=== PATIENT | female | born 1955 | race Caucasian/White ===

== ENCOUNTER → 2017-06-04 | Outpatient (CLI) | payer OTHER ==
--- NOTE | 2017-06-04 13:37 | XR ---
EXAMINATION TYPE: XR foot complete LT DATE OF EXAM: 06/04/2017 COMPARISON: NONE HISTORY: 61 year-old female left foot pain particularly in the third digit. TECHNIQUE: 3 views FINDINGS: Bulky posterior and moderate sized plantar calcaneal spurs. Small delineation to the Achilles tendon. Mild degenerative change at the first MTP joint. There is a small lucency along the medial margin of the third middle phalangeal base seen only on the AP view. Otherwise, no acute fracture, subluxation , or dislocation is seen. IMPRESSION: Tiny lucency at the medial aspect of the third middle phalangeal base only seen on the AP view. If pi npoint tenderness here, findings could represent a small nondisplaced chip or avulsion fracture. Post erior and plantar calcaneal spurs. No other acute osseous abnormality seen.
== END | disposition home or self-care (01) ==
LOC: RADXRMAIN 13:13
PROVIDERS: ATTEND Family Medicine
DX: M77.32 Calcaneal spur, left foot (principal)

== ENCOUNTER → 2017-07-27 | Outpatient (CLI) | payer OTHER ==
--- NOTE | 2017-07-29 08:23 | MM ---
Reason for exam: clinical finding. Last mammogram was performed 2 years and 1 month ago. History: Patient is postmenopausal. Took estrogen for 8 years 2 months. Physical Findings: Nurse Summary: 0.5 x 2cm nodule in the right breast at 3 o'clock (nurse kp). MG Diagnostic Mammo w CAD RAY Bilateral CC and MLO view(s) were taken. Prior study comparison: July 04, 2015, bilateral MG screening mammo w CAD. November 19, 2011, bilateral digital screening mammo w/CAD. The breast tissue is heterogeneously dense. This may lower the sensitivity of mammography. No suspicious abnormality. No discrete mammographic finding to correspond to palpable mass. No significant new findings when compared with previous films. These results were verbally communicated with the patient and result sheet given to the patient on 07/27/17. ASSESSMENT: Probably benign, BI-RAD 3 RECOMMENDATION: Ultrasound of the right breast in 6 months.
--- NOTE | 2017-07-29 08:25 | USB ---
Reason for exam: clinical finding. History: Patient is postmenopausal. Took estrogen for 8 years 2 months. US Breast RT Right breast ultrasound includes all four quadrants, the retroareolar region and axilla. Finding demonstrates a 0.7 x 0.4 x 0.6cm oval, hyperechoic lesion, questionable lipoma at 3 o'clock. 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 These results were verbally communicated with the patient and result sheet given to the patient on 07/27/17. ASSESSMENT: Probably benign, BI-RAD 3 RECOMMENDATION: Ultrasound of the right breast in 6 months.
== END | disposition home or self-care (01) ==
LOC: RADMAMWWP 15:05
PROVIDERS: ATTEND Family Medicine
DX: N63 Unspecified lump in breast (principal)
CPT/HCPCS: 76641; G0204

== ENCOUNTER → 2017-08-24 | Outpatient (CLI) | payer OTHER ==
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
--- NOTE | 2017-08-24 11:08 | XR ---
EXAMINATION TYPE: XR ankle complete LT DATE OF EXAM: 08/24/2017 CLINICAL HISTORY: Fall injury with pain. TECHNIQUE: Frontal, lateral and oblique images of the left ankle are obtained. COMPARISON: None. FINDINGS: Osseous structures are demineralized which is noted to lower radiographic sensitivity. Ther e is no acute fracture/dislocation evident in the left ankle. There is mild spurring from the medial and lateral malleolus. The ankle mortise appears within normal limits. There is mild soft tissue swel ling over medial and lateral malleoli. Large superior and moderate to large size inferior calcaneal s purs are noted. IMPRESSION: There is no acute fracture or dislocation in the left ankle.
== END ==
LOC: RADXRMAIN 10:35
PROVIDERS: ATTEND Family Medicine
DX: S89.91XA Unspecified injury of right lower leg, initial encounter (principal); S99.912A Unspecified injury of left ankle, initial encounter

== ENCOUNTER 2017-09-23 16:08 | Inpatient (IN) | payer MEDICAID, OTHER ==
[2017-09-23] MEDS ORDERED: DIPH,PERTUS(ACELL)TETVAC-LF 0.5 ML VIAL IM ONE (16:42)
--- NOTE | 2017-09-23 16:44 | ED ---
General Adult HPI - General Chief complaint: Psychiatric Symptoms Stated complaint: Mental Health Time Seen by Provider: 09/23/17 16:25 Source: patient, RN notes reviewed Mode of arrival: ambulatory Limitations: no limitations - History of Present Illness Initial comments: Patient is a pleasant 62-year-old female presenting to the emergency department with depression. Patient states symptoms have been occurring for months. Patient does have a history of hospitalization once many years ago. Patient is depressed about life in general. Patient has thoughts of self-harm and did try to cut her right wrist with 3 different knives. Patient states none of the knives were sharp enough. Unclear last tetanus immunization. No homicidal thoughts. No hallucinations. No physical complaints. No alcohol or street drug use. - Related Data Home Medications Medication Instructions Recorded Confirmed Atorvastatin [Lipitor] 20 mg PO DAILY 09/23/17 09/24/17 Budesonide/Formoterol Fumarate 2 puff INHALATION RT-BID 09/23/17 09/24/17 [Symbicort 160-4.5 Mcg Inhaler] Butalb/APAP/Caff 50-325-40Mg 1 tab PO Q6H PRN 09/23/17 09/24/17 [Fioricet 50-325-40] Docusate [Colace] 100 mg PO BID PRN 09/23/17 09/24/17 Insulin Glargine [Lantus] 30 units SQ HS 09/23/17 09/24/17 Omeprazole 20 mg PO DAILY 09/23/17 09/24/17 Vilazodone HCl [Viibryd] 20 mg PO HS 09/23/17 09/23/17 cloNIDine HCL 0.3 mg PO DAILY@0000 PRN 09/23/17 09/23/17 cloNIDine HCL 0.3 mg PO HS@199909/23/17 09/23/17 lamoTRIgine [LaMICtal] 150 mg PO QAM 09/23/17 09/23/17 lamoTRIgine [LaMICtal] 200 mg PO HS 09/23/17 09/23/17 oxyCODONE HCL [Roxicodone] 10 mg PO TID PRN 09/23/17 09/24/17 DULoxetine HCL [Cymbalta] 60 mg PO BID 09/24/17 09/24/17 Pregabalin [Lyrica] 150 mg PO BID 09/24/17 09/24/17 QUEtiapine FUMARATE [SEROquel] 400 mg PO BID 09/24/17 09/24/17 Allergies Allergy/AdvReac Type Severity Reaction Status Date / Time ampicillin AdvReac Nausea & Verified 09/23/17 19:08 Vomiting & Diarrhea fluoxetine [From Prozac] AdvReac SUICIDAL Verified 09/23/17 19:08 morphine AdvReac Nausea & Verified 09/23/17 19:08 Vomiting Review of Systems ROS Statement: Those systems with pertinent positive or pertinent negative responses have been documented in the HPI. ROS Other: All systems not noted in ROS Statement are negative. Constitutional: Denies: fever Eyes: Denies: eye pain ENT: Denies: ear pain Respiratory: Denies: cough Cardiovascular: Denies: chest pain Endocrine: Denies: fatigue Gastrointestinal: Denies: abdominal pain Genitourinary: Denies: dysuria Musculoskeletal: Denies: back pain Skin: Denies: rash Neurological: Denies: weakness Psychiatric: Reports: as per HPI, depression, suicidal thoughts Past Medical History Past Medical History: Diabetes Mellitus History of Any Multi-Drug Resistant Organisms: None Reported Past Surgical History: Section, Cholecystectomy, Hysterectomy Additional Past Surgical History / Comment(s): Neck surgery, right knee surgery Past Psychological History: Anxiety, Depression Smoking Status: Current every day smoker Past Alcohol Use History: None Reported Past Drug Use History: None Reported General Exam Limitations: no limitations General appearance: alert, in no apparent distress Head exam: Present: atraumatic Eye exam: Present: normal appearance, PERRL ENT exam: Present: normal oropharynx Neck exam: Present: normal inspection Respiratory exam: Present: normal lung sounds bilaterally Cardiovascular Exam: Present: regular rate, normal rhythm GI/Abdominal exam: Present: soft. Absent: tenderness Extremities exam: Present: other (Right volar forearm abrasions) Neurological exam: Present: alert Psychiatric exam: Present: depressed Skin exam: Present: abrasion (5 horizontal right volar forearm abrasions.) Course Vital Signs 09/23/17 09/23/17 16:13 18:34 Temperature 98.8 F 98.8 F Pulse Rate 78 76 Respiratory 18 18 Rate Blood Pressure 107/55 109/56 O2 Sat by Pulse 96 98 Oximetry Medical Decision Making - Lab Data Result diagrams: 09/24/17 09:03 09/24/17 09:03 Lab Results 09/23/17 Range/Units 17:52 Urine Opiates Screen Not Detected (NotDetected) Ur Oxycodone Screen Detected H (NotDetected) Urine Methadone Screen Not Detected (NotDetected) Ur Propoxyphene Screen Not Detected (NotDetected) Ur Barbiturates Screen Detected H (NotDetected) U Tricyclic Antidepress Not Detected (NotDetected) Ur Phencyclidine Scrn Not Detected (NotDetected) Ur Amphetamines Screen Not Detected (NotDetected) U Methamphetamines Scrn Not Detected (NotDetected) U Benzodiazepines Scrn Not Detected (NotDetected) Urine Cocaine Screen Not Detected (NotDetected) U Marijuana (THC) Screen Not Detected (NotDetected) Disposition Clinical Impression: Depression Disposition: ADMITTED IP TO THIS HOSP
[2017-09-23] MEDS ORDERED: DOCUSATE 100 MG CAP PO PRN (19:04)
[2017-09-23] MEDS ORDERED: MAG HYDROX/AL HYDROX/SIMETH 30 ML CUP PO PRN (19:07)
[2017-09-23] MEDS ORDERED: MAGNESIUM HYDROXIDE 2,400 MG/10 ML CUP PO PRN (19:07)
[2017-09-23 20:12] LABS: Glucose,Whole Blood 56 mg/dL (75-99)
[2017-09-23 20:33] LABS: Glucose,Whole Blood 71 mg/dL (75-99)
[2017-09-23] MEDS: SYMBICORT 160-4.5 MCG INHALER INHALATION SCH (21:17)
[2017-09-23] MEDS: INSULIN GLARGINE 100 UNIT/ML 10 ML VIAL SQ SCH (21:20)
[2017-09-23] MEDS: cloNIDine HCL 0.1 MG TAB PO SCH (21:48)
[2017-09-23] MEDS: lamoTRIgine 100 MG TAB PO SCH (21:48)
[2017-09-24 05:54] LABS: Glucose,Whole Blood 107 mg/dL (75-99)
[2017-09-24] MEDS: lamoTRIgine 100 MG TAB PO SCH ×2 (08:30→21:26)
[2017-09-24] MEDS: PANTOPRAZOLE 40 MG TABLET PO SCH (08:30)
[2017-09-24] MEDS: ATORVASTATIN 20 MG TAB PO SCH (08:30)
[2017-09-24] MEDS: SYMBICORT 160-4.5 MCG INHALER INHALATION SCH ×2 (08:38→19:05)
[2017-09-24 09:35] LABS: Basophils % (A) 1 %; CH 28.5; CHCM 32.2; Eosinophils # (A) 0.1 k/uL (0-0.7); Eosinophils % (A) 2 %; HCT 43.6 % (34.0-46.0); HDW 2.41; HGB 13.7 gm/dL (11.4-16.0); Luc # (Auto) 0.05; Luc % (Auto) 1; Lymphocytes # (A) 1.6 k/uL (1.0-4.8); Lymphocytes % (A) 25 %; MCH 27.8 pg (25.0-35.0); MCHC 31.3 g/dL (31.0-37.0); MCV 88.8 fL (80.0-100.0); Mean Platelet Volume 7.4; Monocytes # (A) 0.2 k/uL (0-1.0); Monocytes % (A) 4 %; Neutrophils # (A) 4.4 k/uL (1.3-7.7); Neutrophils % (A) 68 %; RDW 14.5 % (11.5-15.5); WBC 6.4 k/uL (3.8-10.6); WBC (Perox) 6.76
[2017-09-24] MEDS: NICOTINE 21MG/24HR PATCH TRANSDERM SCH (09:51)
[2017-09-24 10:05] LABS: ALT 33 U/L (9-52); AST 22 U/L (14-36); Alkaline Phosphatase 81 U/L (38-126); Anion Gap 8 mmol/L; Blood Urea Nitrogen 11 mg/dL (7-17); Calcium 9.8 mg/dL (8.4-10.2); Carbon Dioxide 32 mmol/L (22-30); Chloride 101 mmol/L (98-107); Glucose 174 mg/dL (74-99); Non-African American GFR(MDRD) >60 (>60 ml/min/1.73 sqM); Potassium 4.5 mmol/L (3.5-5.1); Sodium 141 mmol/L (137-145); Total Bilirubin 0.4 mg/dL (0.2-1.3)
[2017-09-24 11:00] VITALS: BMI 25.7
[2017-09-24 12:14] LABS: Glucose,Whole Blood 130 mg/dL (75-99)
[2017-09-24] MEDS: PREGABALIN 75 MG CAP PO SCH ×2 (12:37→21:24)
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
[2017-09-24] MEDS: cloNIDine HCL 0.1 MG TAB PO SCH (21:24)
[2017-09-24] MEDS: INSULIN GLARGINE 100 UNIT/ML 10 ML VIAL SQ SCH (21:31)
[2017-09-25] MEDS: SYMBICORT 160-4.5 MCG INHALER INHALATION SCH ×2 (09:11→21:57)
[2017-09-25] MEDS: NICOTINE 21MG/24HR PATCH TRANSDERM SCH (09:19)
[2017-09-25] MEDS: ATORVASTATIN 20 MG TAB PO SCH (09:19)
[2017-09-25] MEDS: PANTOPRAZOLE 40 MG TABLET PO SCH (09:19)
[2017-09-25] MEDS: buPROPion XL 150 MG TAB.ER.24H PO SCH (09:19)
[2017-09-25] MEDS: PREGABALIN 75 MG CAP PO SCH ×2 (09:39→20:48)
[2017-09-25] MEDS: lamoTRIgine 100 MG TAB PO SCH ×2 (09:39→20:48)
--- NOTE | 2017-09-25 10:35 | CONS ---
CONSULTATION CHIEF COMPLAINT: A 62-year-old, white female, with severe depression in the psychiatric [facility] for medical management consult. HISTORY OF PRESENT ILLNESS: This is a 62-year-old, white female, history of diabetes, seizures, mood disorder, GERD, degenerative disc disease with radiculopathy, anxiety, depression, dyslipidemia, admitted to the psychiatric [facility] for severe depression. She states she has no friends, no family. She has no one to talk to and she is really depressed. Clinically, she has been taking her medications for her diabetes and hypertension and her mood pills for mood disorder and that has not changed as well as for her seizures and hypertension. She takes Viibryd 20 mg daily, clonidine 0.3 mg daily, Lamictal 200 at night, 150 mg in the morning, Lipitor 20 daily, Symbicort 160/4.5 two puffs b.i.d., Colace 100 mg b.i.d., omeprazole 20 mg daily, Fioricet 1 tab q.6 hours p.r.n., Cymbalta 60 mg b.i.d., Lantus 30 units daily. Lyrica 150 b.i.d., oxycodone 10 mg t.i.d., Seroquel 400 mg b.i.d. REVIEW OF SYSTEMS: 14-point review of systems negative, except for as mentioned in HPI. Vital signs show a temperature of 97 to 98, respiratory rate 60s to 70s, blood pressure 109 to 146/60s to 50s, O2 sat 98% on room air. She is thin, cachectic. PSYCH: Flat mood, poor affect. She cries when you talk to her. States she has no friends, no family. She is depressed, no one to talk to. She is not suicidal she stated. CARDIOVASCULAR: S1, S2. LUNGS: Transmitted upper airway sounds. HEMATOLOGIC: Negative Homans. GI: Soft. VASCULAR: Normal dorsalis pedis, posterior tibial and radial pulses. ASSESSMENT: 1. Insulin-dependent diabetes mellitus. 2. Obesity. 3. Hypertension. 4. Generalized debility. PLAN: Treat her depression, medically she is stable. Continue to watch her sugars, her blood pressure, her breathing. She has nicotine addiction as well as COPD but will continue with her. She appears to be stable from a medical standpoint. MMODL / IJN: [id number] /
[2017-09-25 17:41] LABS: Glucose,Whole Blood 136 mg/dL (75-99)
[2017-09-25] MEDS: guaiFENesin-DM 600/30MG 1 EACH TAB.ER.12H PO SCH (20:48)
[2017-09-25] MEDS: cloNIDine HCL 0.1 MG TAB PO SCH (20:49)
[2017-09-25] MEDS: INSULIN GLARGINE 100 UNIT/ML 10 ML VIAL SQ SCH (20:50)
[2017-09-26 02:35] LABS: Glucose,Whole Blood 160 mg/dL (75-99)
[2017-09-26] MEDS: NICOTINE 21MG/24HR PATCH TRANSDERM SCH (07:50)
[2017-09-26] MEDS: guaiFENesin-DM 600/30MG 1 EACH TAB.ER.12H PO SCH ×2 (07:50→21:28)
[2017-09-26] MEDS: buPROPion XL 150 MG TAB.ER.24H PO SCH (07:50)
[2017-09-26] MEDS: ATORVASTATIN 20 MG TAB PO SCH (07:50)
[2017-09-26] MEDS: PANTOPRAZOLE 40 MG TABLET PO SCH (07:50)
[2017-09-26] MEDS: PREGABALIN 75 MG CAP PO SCH ×2 (07:51→21:28)
[2017-09-26] MEDS: lamoTRIgine 100 MG TAB PO SCH ×2 (07:51→21:28)
[2017-09-26] MEDS: SYMBICORT 160-4.5 MCG INHALER INHALATION SCH ×2 (08:19→21:18)
[2017-09-26 13:18] LABS: Appearance,Urine Cloudy (Clear); Bacteria,Urine Occasional /hpf; Bilirubin,Urine Negative (Negative); Glucose,Urine (UA) Negative (Negative); Ketones,Urine Negative (Negative); Leukocyte Esterase,Urine Large (Negative); Mucus,Urine Rare /hpf; Nitrite,Urine Negative (Negative); Particle Count 19364; Protein,Urine Negative (Negative); RBC,Urine 3 /hpf (0-5); Specific Gravity,Urine 1.008 (1.001-1.035); Squamous Epithelial Cell,Urine 2 /hpf (0-4); UA Billing (MACRO vs. MICRO) MICRO; Urobilinogen,Urine <2.0 mg/dL (<2.0); WBC,Urine 4 /hpf (0-5)
[2017-09-26 17:57] LABS: Glucose,Whole Blood 121 mg/dL (75-99)
[2017-09-26 20:13] LABS: Glucose,Whole Blood 193 mg/dL (75-99)
[2017-09-26] MEDS: cloNIDine HCL 0.1 MG TAB PO SCH (21:29)
[2017-09-26] MEDS: INSULIN GLARGINE 100 UNIT/ML 10 ML VIAL SQ SCH (21:32)
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
--- NOTE | 2017-09-27 00:49 | P.PN ---
Progress Note - Text Progress Note Date: 09/26/17 62yo CF admitted on 09/23/17 due to suicidal ideations and self-inflicted wrist lacerations Last 24hrs: Patient states that she continues to have depressed mood and SI. Upon further discussion she states that at times her thoughts are more so of cutting herself and pulling out the vein so that she could see the blood and feel better. Feels that cutting is a relief for her as it transforms her emotional pain into physical pain. Discussed possible support systems outside of the hospital such as reaching out more to friends, joining a support group ( previously enjoyed participation in [facility]) and/or volunteer opportunities. Compliant with medications and reports no adverse effects. MSE: Pt is a 62yo CF who appears older than stated age, with deep bags and dark circles around her eyes. Dressed casually. Cooperative with evaluation. Speech is spontaneous with normal rate and volume. Her mood is depressed and affect is restricted. She continues to have SI. Denies HI and AVH. Her thought process is linear and logical. AAO x 3. Memory grossly intact. Insight and Judgment is limited. ASSESSMENT: 1. Major Depressive Disorder, recurrent, severe without psychotic features 2. R/O PTSD PLAN: Increase Wellbutrin XL to 300mg QD. Continue to monitor for safety. Encourage participation in group activities.
[2017-09-27 06:02] LABS: Glucose,Whole Blood 190 mg/dL (75-99)
[2017-09-27] MEDS: SYMBICORT 160-4.5 MCG INHALER INHALATION SCH ×2 (08:29→20:19)
[2017-09-27] MEDS: NICOTINE 21MG/24HR PATCH TRANSDERM SCH (08:37)
[2017-09-27] MEDS: PANTOPRAZOLE 40 MG TABLET PO SCH (08:37)
[2017-09-27] MEDS: ATORVASTATIN 20 MG TAB PO SCH (08:37)
[2017-09-27] MEDS: PREGABALIN 75 MG CAP PO SCH ×2 (08:38→21:07)
[2017-09-27] MEDS: lamoTRIgine 100 MG TAB PO SCH ×2 (08:38→21:07)
[2017-09-27] MEDS: guaiFENesin-DM 600/30MG 1 EACH TAB.ER.12H PO SCH (08:38)
[2017-09-27] MEDS: buPROPion XL 300 MG TAB.ER.24H PO SCH (08:38)
[2017-09-27] MEDS ORDERED: BACITRACIN OINT 1 EACH PACKET TOPICAL ONE (10:55)
[2017-09-27] MEDS: ARIPiprazole 2 MG TAB PO SCH (12:00)
[2017-09-27 13:01] LABS: Glucose,Whole Blood 125 mg/dL (75-99)
--- NOTE | 2017-09-27 17:24 | P.PN ---
Progress Note - Text Progress Note Date: 09/27/17 62yo CF admitted on 09/23/17 due to suicidal ideations and self-inflicted wrist lacerations Last 24hrs: Patient states that she continues to have depressed mood; however, does appear to have somewhat of a brighter affect as compared to initial presentation. She states that she is tired today because she did not sleep well last night. Reports that she is not experiencing intense SI on the unit because "do not have any stress" but fears that when she leaves the SI may return. Discussed her mood swings in more detail and patient stated that she has frequent mood swings that fluctuate throughout the day. Also, reported that she has a fear of abandonment, often feels empty/void, has had multiple krzysztof relationships with men, has issues with low self-esteem and cutting behaviors, does not trust others and often looks at perspectives in an all good or all bad fashion. Later on the unit, the staff informed me that pt reports that she cut her wrist with a barrette while on the unit. However, her wrists have been bandaged since admission. The object was taken from patient and she was not allowed to have forks or knives with her meal for lunch as an extra precaution. MSE: Pt is a 62yo CF who appears older than stated age, with deep bags and dark circles around her eyes. Dressed casually. Cooperative with evaluation. Speech is spontaneous with normal rate and volume. Her mood is depressed and affect is restricted. She continues to have SI. Denies HI and AVH. Her thought process is linear and logical. AAO x 3. Memory grossly intact. Insight and Judgment is limited. ASSESSMENT: 1. Major Depressive Disorder, recurrent, severe without psychotic features 2. Borderline Personality Disorder 3. R/O PTSD PLAN: Continue Wellbutrin XL 300mg QD. Start Abilify 2mg QD and Trazodone 50mg QHS. Continue to monitor for safety. Encourage participation in group activities. Discussed the importance of DBT upon discharge for further development of coping skills and insight.
[2017-09-27] MEDS: metFORMIN 500 MG TAB PO SCH (18:01)
[2017-09-27 20:21] LABS: Glucose,Whole Blood 161 mg/dL (75-99)
[2017-09-27] MEDS ORDERED: traZODone HCL 50 MG TAB PO SCH (21:00)
[2017-09-27] MEDS: cloNIDine HCL 0.1 MG TAB PO SCH (21:16)
[2017-09-27] MEDS: guaiFENesin-DM 100-10MG/5ML 10 ML CUP PO PRN (23:14)
[2017-09-27] MEDS: ARTIFICIAL TEARS-HYPROMELLOSE DROPS 15 ML BTL BOTH EYES PRN (23:19)
[2017-09-28] MEDS: ACETAMINOPHEN TAB 325 MG TAB PO PRN (03:07)
[2017-09-28 05:08] LABS: Glucose,Whole Blood 159 mg/dL (75-99)
[2017-09-28] MEDS: ARTIFICIAL TEARS-HYPROMELLOSE DROPS 15 ML BTL BOTH EYES PRN (06:32)
[2017-09-28] MEDS: SYMBICORT 160-4.5 MCG INHALER INHALATION SCH ×2 (08:18→20:42)
[2017-09-28] MEDS: NICOTINE 21MG/24HR PATCH TRANSDERM SCH (08:24)
[2017-09-28] MEDS: ARIPiprazole 2 MG TAB PO SCH (08:24)
[2017-09-28] MEDS: PREGABALIN 75 MG CAP PO SCH ×2 (08:24→20:02)
[2017-09-28] MEDS: buPROPion XL 300 MG TAB.ER.24H PO SCH (08:25)
[2017-09-28] MEDS: metFORMIN 500 MG TAB PO SCH ×2 (08:25→18:22)
[2017-09-28] MEDS: ATORVASTATIN 20 MG TAB PO SCH (08:25)
[2017-09-28] MEDS: PANTOPRAZOLE 40 MG TABLET PO SCH (08:25)
[2017-09-28] MEDS: lamoTRIgine 100 MG TAB PO SCH ×2 (08:25→20:02)
[2017-09-28] MEDS: guaiFENesin-DM 100-10MG/5ML 10 ML CUP PO PRN (12:04)
[2017-09-28 12:32] LABS: Glucose,Whole Blood 183 mg/dL (75-99)
--- NOTE | 2017-09-28 16:39 | P.PN ---
Progress Note - Text Progress Note Date: 09/28/17 62yo CF admitted on 09/23/17 due to suicidal ideations and self-inflicted wrist lacerations Last 24hrs: Patient states that she is no longer experiencing SI on the unit; however, she is "afraid when I go home it's gonna be the same thing". Her thoughts are extremely negative and has a poor outlook on her future. Discussed the importance of involving herself in various activities and reaching out to friends, but patient states why she cannot do any of the activities suggested. Has not been attending groups as she states that she doesn't like to be forced to come up with a goal or give answers that are expected. Also, feels that the groups are repetitive. She did not sleep well last night with only 3 hrs of sleep. MSE: Pt is a 62yo CF who appears older than stated age, with deep bags and dark circles around her eyes. Dressed casually. Cooperative with evaluation. Speech is spontaneous with normal rate and volume. Her mood is depressed and affect is restricted. Now denies SI. Denies HI and AVH. Her thought process is linear and logical. AAO x 3. Memory grossly intact. Insight and Judgment is limited. ASSESSMENT: 1. Major Depressive Disorder, recurrent, severe without psychotic features 2. Borderline Personality Disorder 3. R/O PTSD PLAN: Continue Wellbutrin XL 300mg QD. Increase Abilify to 5mg QD and Trazodone to 100mg QHS. Continue to monitor for safety. Encourage participation in group activities. Discussed the importance of DBT upon discharge for further development of coping skills and insight.
[2017-09-28 17:40] LABS: Glucose,Whole Blood 130 mg/dL (75-99)
[2017-09-28] MEDS: cloNIDine HCL 0.1 MG TAB PO SCH (20:02)
[2017-09-28 20:13] LABS: Glucose,Whole Blood 189 mg/dL (75-99)
[2017-09-28] MEDS ORDERED: traZODone HCL 100 MG TAB PO SCH (21:00)
[2017-09-29 06:15] LABS: Glucose,Whole Blood 151 mg/dL (75-99)
[2017-09-29] MEDS: PREGABALIN 75 MG CAP PO SCH ×2 (08:33→20:44)
[2017-09-29] MEDS: NICOTINE 21MG/24HR PATCH TRANSDERM SCH (08:33)
[2017-09-29] MEDS: ATORVASTATIN 20 MG TAB PO SCH (08:33)
[2017-09-29] MEDS: lamoTRIgine 100 MG TAB PO SCH ×2 (08:34→20:44)
[2017-09-29] MEDS: buPROPion XL 300 MG TAB.ER.24H PO SCH (08:34)
[2017-09-29] MEDS: PANTOPRAZOLE 40 MG TABLET PO SCH (08:34)
[2017-09-29] MEDS: metFORMIN 500 MG TAB PO SCH ×2 (08:35→17:42)
[2017-09-29] MEDS: ARIPiprazole 5 MG TAB PO SCH (08:35)
[2017-09-29] MEDS: SYMBICORT 160-4.5 MCG INHALER INHALATION SCH ×2 (08:39→21:37)
--- NOTE | 2017-09-29 13:23 | P.PN ---
Progress Note - Text Progress Note Date: 09/29/17 62yo CF admitted on 09/23/17 due to suicidal ideations and self-inflicted wrist lacerations Last 24hrs: Patient states that she is the "same as I was yesterday", but appears more jovial and socializing more on the unit today. She did sleep better last night with 4.5 hrs of sleep. Spends most of the conversation today making jokes and states that she often uses humor as a defense. No reported SI. [facility] has met with patient to discuss discharge plans and follow-up. She is still interested in participating in DBT. No acute changes overnight. Compliant with medications and no reported adverse effects. MSE: Pt is a 62yo CF in NAD. Dressed casually. Cooperative with evaluation. Speech is spontaneous with normal rate and volume. Her mood is "the same" and affect is appropriate and broad. Now denies SI. Denies HI and AVH. Her thought process is linear and logical. AAO x 3. Memory grossly intact. Insight and Judgment is limited. ASSESSMENT: 1. Major Depressive Disorder, recurrent, severe without psychotic features 2. Borderline Personality Disorder 3. R/O PTSD PLAN: Continue Wellbutrin XL 300mg QD and Abilify 5mg QD. Increase Trazodone to 200mg QHS. Continue to monitor for safety. Encourage participation in group activities. Plan to DC tomorrow.
[2017-09-29 17:18] LABS: Glucose,Whole Blood 131 mg/dL (75-99)
[2017-09-29 20:20] LABS: Glucose,Whole Blood 162 mg/dL (75-99)
[2017-09-29] MEDS: cloNIDine HCL 0.1 MG TAB PO SCH (20:44)
[2017-09-29] MEDS: ACETAMINOPHEN TAB 325 MG TAB PO PRN (20:46)
[2017-09-29] MEDS ORDERED: traZODone HCL 100 MG TAB PO SCH (21:00)
[2017-09-29 23:38] VITALS: RESP 16
[2017-09-30 06:44] LABS: Glucose,Whole Blood 148 mg/dL (75-99)
[2017-09-30 06:56] VITALS: BP 100/52; PULSE 80; TEMP 98.6
[2017-09-30] MEDS: metFORMIN 500 MG TAB PO SCH (07:56)
[2017-09-30] MEDS: PANTOPRAZOLE 40 MG TABLET PO SCH (07:57)
[2017-09-30] MEDS: ARIPiprazole 5 MG TAB PO SCH (07:57)
[2017-09-30] MEDS: NICOTINE 21MG/24HR PATCH TRANSDERM SCH (07:57)
[2017-09-30] MEDS: lamoTRIgine 100 MG TAB PO SCH (07:57)
[2017-09-30] MEDS: buPROPion XL 300 MG TAB.ER.24H PO SCH (07:57)
[2017-09-30] MEDS: PREGABALIN 75 MG CAP PO SCH (07:58)
[2017-09-30] MEDS: ATORVASTATIN 20 MG TAB PO SCH (08:01)
[2017-09-30] MEDS: SYMBICORT 160-4.5 MCG INHALER INHALATION SCH (09:49)
--- NOTE | 2017-09-30 09:56 | P.PN ---
Progress Note - Text Progress Note Date: 09/30/17 62yo CF admitted on 09/23/17 due to suicidal ideations and self-inflicted wrist lacerations Last 24hrs: Patient is doing well today and has a calm manner. She is laying in bed during rounds but easily awakened. States that she did sleep much better last night with the increase in Trazodone. No reported SI today. Looking forward to going home. Continues to be interested in DBT and also wanting to know more about trauma related groups in her area. Discussed the possibility of involvement in [facility]. No acute changes or disturbances overnight. Compliant with her medications and no reported adverse effects. Pt requesting a prescription for nicotine patches as she plans on continuing to abstain from smoking cigarettes after discharge. MSE: Pt is a 62yo CF in NAD. Dressed casually. Cooperative with evaluation. Speech is spontaneous with normal rate and volume. Her mood is euthymic and affect is appropriate and broad. No reported SI, HI or AVH. Her thought process is linear and logical. AAO x 3. Memory grossly intact. Insight and Judgment is limited. ASSESSMENT: 1. Major Depressive Disorder, recurrent, severe without psychotic features 2. Borderline Personality Disorder 3. R/O PTSD PLAN: Continue Wellbutrin XL 300mg QD, Abilify 5mg QD and Trazodone 200mg QHS. Discharge today.
[2017-09-30 12:43] LABS: Glucose,Whole Blood 192 mg/dL (75-99)
--- NOTE | 2017-10-24 22:59 | P.DS ---
Providers Date of admission: 09/23/17 18:20 Expected date of discharge: 09/30/17 Attending physician: Tej Rose, DO Consults: 09/23/17 19:07 Consult Physician Routine Consulting Provider: Charlie Esqueda Consult Reason/Comments: H and P Do you want consulting provider notified?: Yes Primary care physician: Charlie Esqueda - Discharge Diagnosis(es) (1) MDD (major depressive disorder), recurrent severe, without psychosis Status: Acute (2) Borderline personality disorder Status: Acute Hospital Course: Upon admission, patient reported continued SI and displayed a tearful affect. She was cooperative with interview but appeared guarded. Pt was started on Wellbutrin XL 150mg QD and continued on Lamictal as previously prescribed. Viibryd was not on formulary so it was not continued during hospitalization. We discussed possible options for SSRIs and pt reported that she had some manic symptoms on these medications in the past. Therefore, the decision was made to optimize Wellbutrin instead and dose was increased to 300mg daily. Abilify was also added for augmentation and improvement in depressed mood; ultimately titrated up to 5mg QD. Patient c/o sleep disturbance and was started on Trazodone as well. During further evaluation while on the unit, we discussed her mood swings in more detail and patient stated that she has frequent mood swings that fluctuate throughout the day. Also, reported that she has a fear of abandonment, often feels empty/void, has had multiple krzysztof relationships with men, has issues with low self-esteem and cutting behaviors, does not trust others and often looks at perspectives in an all good or all bad fashion. Given these symptoms, it was determined that patient not only had Major Depressive Disorder as determined by initial evaluation, but also deals with Borderline personality disorder as well. On hospital day 3 staff informed this provider that patient reported that she cut her wrist with a barrette while on the unit. However, her wrists had been bandaged since admission. The object was taken from patient and she was not allowed to have forks or knives with her meal for lunch as an extra precaution. When the incident was discussed with patient on the following day, she stated that she was telling them about what happened immediately on admission. This appeared to be more of attention seeking behavior than an actual suicide attempt. Over the course of hospitalization, patient's mood did appear to improve and she became more expressive on the unit. She opened up about past traumatic experiences during childhood and the importance of participating in DBT following discharge was emphasized. Her affect became more broad and bright throughout hospital stay as well. On discharge, patient denied SI, HI and AVH. She remained compliant with medications and reported no adverse effects. She was strongly encouraged to comply with outpatient treatment and medications in an effort to continue to improve her mood and develop more adaptive coping skills. Patient Condition at Discharge: Stable Plan - Discharge Summary Discharge Rx Participant: No New Discharge Prescriptions: New ARIPiprazole [Abilify] 5 mg PO DAILY #30 tab buPROPion XL [Wellbutrin XL] 300 mg PO DAILY #30 tab.er.24h Nicotine 21Mg/24Hr Patch [Habitrol] 1 patch TRANSDERM DAILY #30 patch traZODone HCL [Desyrel] 200 mg PO HS #60 tab Continue Insulin Glargine [Lantus] 30 units SQ HS cloNIDine HCL 0.3 mg PO HS@2000 Omeprazole 20 mg PO DAILY Atorvastatin [Lipitor] 20 mg PO DAILY Docusate [Colace] 100 mg PO BID PRN PRN Reason: Constipation Butalb/APAP/Caff 50-325-40Mg [Fioricet 50-325-40] 1 tab PO Q6H PRN PRN Reason: Migraine Headache Budesonide/Formoterol Fumarate [Symbicort 160-4.5 Mcg Inhaler] 2 puff INHALATION RT-BID cloNIDine HCL 0.3 mg PO DAILY@0000 PRN PRN Reason: IF PATIENT STILL AWAKE oxyCODONE HCL [Roxicodone] 10 mg PO TID PRN PRN Reason: Pain Pregabalin [Lyrica] 150 mg PO BID lamoTRIgine [LaMICtal] 200 mg PO HS #30 tablet lamoTRIgine [LaMICtal] 150 mg PO QAM #45 tablet Discontinued Vilazodone HCl [Viibryd] 20 mg PO HS QUEtiapine FUMARATE [SEROquel] 400 mg PO BID DULoxetine HCL [Cymbalta] 60 mg PO BID Discharge Medication List Atorvastatin [Lipitor] 20 mg PO DAILY 09/23/17 [History] Budesonide/Formoterol Fumarate [Symbicort 160-4.5 Mcg Inhaler] 2 puff INHALATION RT-BID 09/23/17 [History] Butalb/APAP/Caff 50-325-40Mg [Fioricet 50-325-40] 1 tab PO Q6H PRN 09/23/17 [ History] Docusate [Colace] 100 mg PO BID PRN 09/23/17 [History] Insulin Glargine [Lantus] 30 units SQ HS 09/23/17 [History] Omeprazole 20 mg PO DAILY 09/23/17 [History] cloNIDine HCL 0.3 mg PO DAILY@0000 PRN 09/23/17 [History] cloNIDine HCL 0.3 mg PO HS@2000 09/23/17 [History] oxyCODONE HCL [Roxicodone] 10 mg PO TID PRN 09/23/17 [History] Pregabalin [Lyrica] 150 mg PO BID 09/24/17 [History] ARIPiprazole [Abilify] 5 mg PO DAILY #30 tab 09/30/17 [Rx] Nicotine 21Mg/24Hr Patch [Habitrol] 1 patch TRANSDERM DAILY #30 patch 09/30/17 [ Rx] buPROPion XL [Wellbutrin XL] 300 mg PO DAILY #30 tab.er.24h 09/30/17 [Rx] lamoTRIgine [LaMICtal] 150 mg PO QAM #45 tablet 09/30/17 [Rx] lamoTRIgine [LaMICtal] 200 mg PO HS #30 tablet 09/30/17 [Rx] traZODone HCL [Desyrel] 200 mg PO HS #60 tab 09/30/17 [Rx] Follow up Appointment(s)/Referral(s): [facility] [Outside] - 10/01/17 1:00 pm (10-01-17 @ 1:00 with Shavon Hernadez 11-05-17 @ 2:00 with Angelica [facility] (none sooner as Angelica is booking into November) ) Charlie Esqueda MD [Primary Care Provider] - 1-2 days Patient Instructions/Handouts: Depression (GEN), Suicide Prevention for Adults (GEN) Activity/Diet/Wound Care/Special Instructions: Activity and diet as tolerated. Avoid the use of street drugs and alcohol. Take all medications as prescribed. When you are in need of refills on your medications please contact your medical provider and/or outpatient psychiatrist to have this done. Please go to scheduled outpatient appointment for aftercare treatment. If symptoms return or become worse call the crisis line at [phone] and/or go to the nearest emergency room for an evaluation. Discharge Disposition: HOME SELF-CARE
== END 2017-09-30 12:50 | disposition home or self-care (01) | DRG 751 ==
LOC: EC 16:08 → 3MHU 18:20
PROVIDERS: ADMIT Psychiatry & Neurology Psychiatry; ATTEND Psychiatry & Neurology Psychiatry
DX: F33.2 Major depressive disorder, recurrent severe without psychotic features (principal); R45.851 Suicidal ideations; E11.9 Type 2 diabetes mellitus without complications; F17.210 Nicotine dependence, cigarettes, uncomplicated; E78.5 Hyperlipidemia, unspecified; K21.9 Gastro-esophageal reflux disease without esophagitis; G89.29 Other chronic pain; G47.9 Sleep disorder, unspecified; R45.84 Anhedonia; F41.9 Anxiety disorder, unspecified; E66.9 Obesity, unspecified; S50.811A Abrasion of right forearm, initial encounter; S61.519A Laceration without foreign body of unspecified wrist, initial encounter; X78.9XXA Intentional self-harm by unspecified sharp object, initial encounter; R05 Cough; K59.00 Constipation, unspecified; F60.3 Borderline personality disorder; R53.81 Other malaise; J44.9 Chronic obstructive pulmonary disease, unspecified; Z90.710 Acquired absence of both cervix and uterus; Z88.1 Allergy status to other antibiotic agents; Z88.8 Allergy status to other drugs, medicaments and biological substances; Z79.899 Other long term (current) drug therapy; Z91.14 Patient's other noncompliance with medication regimen; Z81.8 Family history of other mental and behavioral disorders; Z79.51 Long term (current) use of inhaled steroids; Z79.4 Long term (current) use of insulin; Z90.49 Acquired absence of other specified parts of digestive tract
CPT/HCPCS: 80053; 80306; 81001; 82075; 83036; 84443; 85025; 87086; 90471; 90715; 94640; 99285

== ENCOUNTER → 2018-03-01 | Outpatient (CLI) | payer OTHER ==
--- NOTE | 2018-03-01 14:38 | MM ---
Reason for exam: follow-up at short interval from prior study. Last mammogram was performed 7 months ago. History: Patient is postmenopausal. Took estrogen for 8 years 2 months. Physical Findings: Nurse did not find any significant physical abnormalities on exam. MG Diagnostic Mammo w CAD RAY Bilateral CC and MLO view(s) were taken. Prior study comparison: July 27, 2017, bilateral MG diagnostic mammo w CAD RAY. July 04, 2015, bilateral MG screening mammo w CAD. The breast tissue is heterogeneously dense. This may lower the sensitivity of mammography. Finding: There are typically benign calcifications in both breasts. These results were verbally communicated with the patient and result sheet given to the patient on 03/01/18. ASSESSMENT: Benign, BI-RAD 2 RECOMMENDATION: Routine screening mammogram of both breasts in 1 year.
--- NOTE | 2018-03-01 14:51 | USB ---
Reason for exam: follow-up at short interval from prior study. History: Patient is postmenopausal. Took estrogen for 8 years 2 months. US Breast RT Right breast ultrasound includes all four quadrants, the retroareolar region and axilla. Finding demonstrates a 0.7 x 0.4 x 0.7cm oval, hyperechoic lesion at 3 o'clock, questionable lipoma. Most likely a lipoma with minimal increase in size (1mm) versus difference in technique. Precautionary 6 month follow up. These results were verbally communicated with the patient and result sheet given to the patient on 03/01/18. ASSESSMENT: Probably benign, BI-RAD 3 RECOMMENDATION: Ultrasound of the right breast in 6 months.
== END | disposition home or self-care (01) ==
LOC: RADMAMWWP 13:03
PROVIDERS: ATTEND Family Medicine
DX: R92.8 Other abnormal and inconclusive findings on diagnostic imaging of breast (principal)
CPT/HCPCS: 77066

== ENCOUNTER → 2018-05-20 | Outpatient (CLI) | payer OTHER ==
--- NOTE | 2018-05-20 16:28 | MR ---
EXAMINATION TYPE: MR cspine/lspine wo con DATE OF EXAM: 05/20/2018 COMPARISON: MRI cervical and lumbar spine March 21, 2015 HISTORY: Cervicalgia and low back pain per order. Headache with neck pain causing pain into left arm for over 10 years per patient. Low back pain for years into bilateral buttocks per patient. TECHNIQUE: Multiplanar, multisequence imaging of the cervical and lumbar spine are performed without IV contrast. FINDINGS: C-SPINE: FINDINGS: Sagittal images of the cervical spine show the craniocervical junction to remain within nor mal limits. The cervical and upper thoracic spinal cord remains normal in course, caliber, and signa l. There is persistent grade 1 retrolisthesis of C6 on C7. This is artifact from anterior fusion plat e C4-C6 levels along with artifact from central vertebral hardware and artifact from artificial disc material C3-C4 level. Disc space heights are satisfactory above and below surgical levels. The verteb ral body above and below surgical levels are normal. The bone marrow signal intensity is within norm al limits. There is mild to moderate multilevel anterior spurring in the visualized upper thoracic sp ine. Axial images at C2-C3 level shows right-sided uncovertebral facet degenerative changes causing asymme tric mild right-sided neural foraminal narrowing, left-sided neural foramen is patent. Finding new fr om prior. Axial images at C3-C4 level show persistent left paracentral/foraminal spur disc complex and uncovert ebral facet degenerative changes causing moderate to severe left-sided neural foraminal narrowing mor e prominent from prior. Right-sided neural foramen is patent. Effacement of anterolateral spinal abbie l is noted. Axial images at C4-C5 level show persistent right paracentral bony projection effacing anterior theca l sac axial image 30, there is mild bilateral neural foraminal narrowing due to marginal spurring. No significant change from prior. Axial images at C5-C6 level show persistent right paracentral/foraminal bony projection effacing ante rolateral thecal sac with marginal spurring causing mild to moderate left greater than right neural f oraminal narrowing. No significant change from prior. Axial images at C6-C7 level show spur disc complex effacing anterior thecal sac and artifact from jevon gical change. There is effacement of anterior thecal sac, there is moderate to advanced left and mild right-sided neural foraminal narrowing felt present. There is no significant change from prior study seen. Axial images at C7-T1 level show left-sided uncovertebral facet degenerative changes causing mild to moderate left-sided neural foraminal narrowing. Right-sided neural foramen is patent. Finding new or more prominent from prior. IMPRESSION: Postsurgical changes mid cervical spine redemonstrated. Stable spondylolisthesis C6 on C7 . Multilevel degenerative changes as detailed above with some progression from prior MRI noted. L-SPINE: Sagittal images of the lumbar spine show vertebral body heights and alignment to remain satisfactory. Multilevel disc desiccation is redemonstrated. There is persistent fairly moderate disc space narrow ing with posterior disc herniation L3-L4 level on sagittal images. Smaller posterior disc herniations are redemonstrated L4-L5 and L5-S1 levels on sagittal images. The conus medullaris remains normal i n position and signal ending mid L1 level. Mild multilevel anterior spurring is redemonstrated. The bone marrow signal intensity is within normal limits. Axial images the T12-L1 level to remain within normal limits. Axial images at L1-L2 level redemonstrate mild facet degenerative changes bilaterally. Spinal canal i s preserved and bilateral neural foramina are patent. Axial images at L2-L3 level redemonstrate mild broad disc bulge but spinal canal is preserved. Bilate ral neural foramina are patent. No significant change from prior. Axial images at L3-L4 level redemonstrate broad-based left lateral disc protrusion with some effaceme nt of the anterior thecal sac and asymmetric mild to moderate left-sided anterior inferior neural for aminal narrowing. Right-sided neural foramen is patent. No significant change from prior. Axial images at L4-L5 level redemonstrate moderate facet degenerative changes and ligamentum flavum h ypertrophy effacing posterior lateral thecal sac. There is mild broad-based posterior disc protrusion minimally effacing anterior thecal sac. There is mild right greater than left anterior inferior neur al foraminal narrowing. No significant change from prior. Axial images at L5-S1 level redemonstrate mild facet degenerative changes bilaterally. There is broad disc bulge with central disc protrusion component. Spinal canal is preserved. Bilateral neural douglas andrea are patent. Cannot exclude mucosal lesion in the proximal to mid sigmoid colon which is likely slightly redundant extending right of midline axial image 3, advise colonoscopy follow-up if has not been performed in last 3 years. IMPRESSION: Multilevel degenerative changes in lumbar spine as detailed above without significant pro gression from prior MRI. Attention to proximal to mid sigmoid colon as detailed above.
== END | disposition home or self-care (01) ==
LOC: RADMRIMAIN 14:53
PROVIDERS: ATTEND Nurse Practitioner Acute Care
DX: M47.816 Spondylosis without myelopathy or radiculopathy, lumbar region (principal); M43.12 Spondylolisthesis, cervical region; M47.812 Spondylosis without myelopathy or radiculopathy, cervical region; Z98.890 Other specified postprocedural states; Z88.1 Allergy status to other antibiotic agents
CPT/HCPCS: 72141; 72148

== ENCOUNTER → 2018-12-28 | Outpatient (CLI) | payer OTHER ==
--- NOTE | 2018-12-29 08:18 | XR ---
EXAMINATION TYPE: XR elbow complete RT DATE OF EXAM: 12/28/2018 COMPARISON: None HISTORY: Pain and swelling from fall TECHNIQUE: Three-view right elbow FINDINGS: Displaced fractures are not identified. There appear to be secondary ossification centers a djacent to the supracondylar regions. These could be old avulsions. Radial head aligns normally with the humerus. Anterior fat pad is normal. No elevation posterior fat pad is evident which is normal. S oft tissues appear within normal limits. Follow-up exam can be performed 7-10 days from acute trauma for continued pain. IMPRESSION: 1. Acute osseous abnormality is not identified. Consider follow-up as clinically indicated.
== END | disposition home or self-care (01) ==
LOC: RADXRMAIN 16:00
PROVIDERS: ATTEND Family Medicine
DX: M25.521 Pain in right elbow (principal)

== ENCOUNTER 2019-10-09 14:14 | Emergency (ER) | payer MEDICARE, OTHER ==
[2019-10-09 14:20] VITALS: RESP 18; TEMP 98.7
[2019-10-09] MEDS ORDERED: ACETAMINOPHEN TAB 325 MG TAB PO STA (14:27)
--- NOTE | 2019-10-09 14:44 | ED ---
General Adult HPI - General Chief complaint: Fall Stated complaint: Fall Time Seen by Provider: 10/09/19 14:16 Source: patient, EMS, RN notes reviewed Mode of arrival: EMS Limitations: no limitations - History of Present Illness Initial comments: 64-year-old female with a past medical history of diabetes mellitus, neuropathy, neck pain, neck surgery, falls presents to the emergency department for a chief of fall. Patient states she was in her basement because it was leaking. States she was setting up a fan when she tripped over the cord. Patient states she did fall backwards and hit her head. Patient also has some neck pain as well as right shoulder pain. Patient denies any back or abdominal pain. Denies any other extremity pain between sides her right shoulder. No loss of consciousness. No blood thinners. He does admit to a mild headache. Patient has no other complaints at this time including shortness of breath, chest pain, abdominal pain, nausea or vomiting, or visual changes. - Related Data Home Medications Medication Instructions Recorded Confirmed Atorvastatin [Lipitor] 20 mg PO DAILY 09/23/17 09/24/17 Budesonide/Formoterol Fumarate 2 puff INHALATION RT-BID 09/23/17 09/24/17 [Symbicort 160-4.5 Mcg Inhaler] Butalb/APAP/Caff 50-325-40Mg 1 tab PO Q6H PRN 09/23/17 09/24/17 [Fioricet 50-325-40] Docusate [Colace] 100 mg PO BID PRN 09/23/17 09/24/17 Insulin Glargine [Lantus] 30 units SQ HS 09/23/17 09/24/17 Omeprazole 20 mg PO DAILY 09/23/17 09/24/17 cloNIDine HCL 0.3 mg PO DAILY@0000 PRN 09/23/17 09/23/17 cloNIDine HCL 0.3 mg PO HS@2000 09/23/17 09/23/17 oxyCODONE HCL [Roxicodone] 10 mg PO TID PRN 09/23/17 09/24/17 Pregabalin [Lyrica] 150 mg PO BID 09/24/17 09/24/17 Previous Rx's Medication Instructions Recorded ARIPiprazole [Abilify] 5 mg PO DAILY #30 tab 09/30/17 Nicotine 21Mg/24Hr Patch [Habitrol] 1 patch TRANSDERM DAILY #30 patch 09/30/17 buPROPion XL [Wellbutrin XL] 300 mg PO DAILY #30 tab.er.24h 09/30/17 lamoTRIgine [LaMICtal] 150 mg PO QAM #45 tablet 09/30/17 lamoTRIgine [LaMICtal] 200 mg PO HS #30 tablet 09/30/17 traZODone HCL [Desyrel] 200 mg PO HS #60 tab 09/30/17 Allergies Allergy/AdvReac Type Severity Reaction Status Date / Time ampicillin AdvReac Nausea & Verified 10/09/19 14:20 Vomiting & Diarrhea fluoxetine [From Prozac] AdvReac SUICIDAL Verified 10/09/19 14:20 morphine AdvReac Nausea & Verified 10/09/19 14:20 Vomiting Review of Systems ROS Statement: Those systems with pertinent positive or pertinent negative responses have been documented in the HPI. ROS Other: All systems not noted in ROS Statement are negative. Past Medical History Past Medical History: Diabetes Mellitus Additional Past Medical History / Comment(s): ANX/DEPRESSION,NEUROPATHY, NECK PAIN, DIVERTICULAR DISEASE, CONSTIPATION -LAST BM 2-3 DAYS AGO, SHINGLES AGE 19, "IRREG HEART BEAT", FALLS- "BROKE LT FOOT WEARS A BRACE". History of Any Multi-Drug Resistant Organisms: None Reported Past Surgical History: Section, Cholecystectomy, Hysterectomy Additional Past Surgical History / Comment(s): Neck surgery, right knee surgery Past Anesthesia/Blood Transfusion Reactions: No Reported Reaction Additional Past Anesthesia/Blood Transfusion Reaction / Comment(s): past blood transfusion-no reaction. Past Psychological History: Anxiety, Depression Smoking Status: Current every day smoker Past Alcohol Use History: None Reported Past Drug Use History: None Reported General Exam Limitations: no limitations General appearance: alert, in no apparent distress Head exam: Present: atraumatic, normocephalic, normal inspection Eye exam: Present: normal appearance, PERRL, EOMI. Absent: scleral icterus, conjunctival injection, periorbital swelling ENT exam: Present: normal exam, normal oropharynx, mucous membranes moist, TM's normal bilaterally (Gated hemotympanums), normal external ear exam Neck exam: Present: other (Patient is in c-collar. Does have minimal right paraspinal tenderness) Respiratory exam: Present: normal lung sounds bilaterally. Absent: respiratory distress, wheezes, rales, rhonchi, stridor Cardiovascular Exam: Present: regular rate, normal rhythm, normal heart sounds, other (No contusions or ecchymosis noted of the chest wall). Absent: systolic murmur, diastolic murmur, rubs, gallop, clicks GI/Abdominal exam: Present: soft, normal bowel sounds, other (No contusions or ecchymosis noted of the chest wall.). Absent: distended, tenderness, guarding, rebound, rigid Extremities exam: Present: other (Patient has pain of the right shoulder. Patient actually does have full range of motion of the right shoulder. however she does have pain with full flexion and abduction. generalized tenderness to the right shoulder. No clavicular tenderness. Capillary refill less than 2 seconds, radial pulse 2+. ) Back exam: Absent: tenderness, CVA tenderness (R), CVA tenderness (L), vertebral tenderness (No thoracic or lumbar spine tenderness, no contusions or evidence of trauma.) Neurological exam: Present: alert, oriented X3 Course Vital Signs 10/09/19 10/09/19 14:15 15:08 Temperature 98.7 F Pulse Rate 86 75 Respiratory 18 18 Rate Blood Pressure 125/52 118/67 O2 Sat by Pulse 95 96 Oximetry Medical Decision Making - Medical Decision Making Patient presents for mechanical fall. Patient did hit the back of her head, no significant hematomas noted. GCS 15. No focal neurologic deficits. Patient is well-appearing, nontoxic. Patient also complaining of right shoulder pain however exam is really benign.CT brain shows age-related atrophic and chronic small vessel ischemia without acute intracranial process. CT cervical spine shows no evidence for fracture or subluxation of the cervical spine. There are stable changes of anterior cervical dissecting the infusion extending from C4 through C6. X-ray shows no acute fracture or dislocation in the right shoulder. Postsurgical change of the glenohumeral joint and AC joint is noted. Patient reevaluated, feeling well at this time. Patient can be discharged home to follow up with primary care. Discussed concussion precautions. Discussed returning if she has any other worsening symptoms. Disposition Clinical Impression: Head injury Disposition: HOME SELF-CARE Condition: Good Instructions (If sedation given, give patient instructions): Concussion (ED), Shoulder Pain (ED) Additional Instructions: Please take Tylenol for pain. Please follow-up with primary care in 1-2 days. Return to the emergency department if you have any worsening symptoms. Is patient prescribed a controlled substance at d/c from ED?: No Referrals: Charlie Esqueda MD [Primary Care Provider] - 1-2 days Time of Disposition: 15:32
--- NOTE | 2019-10-09 15:00 | CT ---
EXAMINATION TYPE: CT brain ivaine wo con DATE OF EXAM: 10/09/2019 COMPARISON: Previous CT cervical spine 10/27/2011 HISTORY: head and neck pain post fall CT DLP: 1302.[address] of the brain was performed. The ventricles, basal cisterns and sulci overlying the cerebral convexities demonstrate mild enlargem ent. There is no evidence for intracranial hemorrhage or sulcal effacement. There is decreased attenuatio n about the periventricular white matter and deep white matter of both cerebral hemispheres, compatib le with chronic small vessel ischemia. No mass effects are seen. If symptoms persist consider MRI. Osseous calvarium is intact. IMPRESSION: 1. Age related atrophic and chronic small vessel ischemic change without acute intracranial process seen at this time. CT Cervical Spine: Unenhanced CT of the cervical spine was performed with bone and soft tissue window settings submitted . Coronal and sagittal reconstruction is obtained. There is normal alignment and prevertebral soft tissues. No evidence for acute cervical fracture . St able changes of anterior cervical discectomy and fusion extending from C4 through C6. Degenerative di sc space narrowing and spondylosis noted at C2-3 and C3-4. IMPRESSION: 1. No evidence for acute fracture or subluxation of the cervical spine.
[2019-10-09 15:10] VITALS: BP 118/67; PULSE 75
--- NOTE | 2019-10-09 15:17 | XR ---
EXAMINATION TYPE: XR shoulder complete RT DATE OF EXAM: 10/09/2019 CLINICAL HISTORY: Right shoulder pain after fall TECHNIQUE: Three views of the right shoulder are obtained. COMPARISON: None. FINDINGS: There is mild diffuse osseous demineralization. There is no acute fracture/dislocation evid ent in the right shoulder. The acromioclavicular and glenohumeral joint spaces demonstrate postsurgi chaitanya change but maintain alignment. The visualized ribs are intact and unremarkable. Postsurgical angel nge of the cervical spine is also seen. IMPRESSION: There is no acute fracture or dislocation in the right shoulder. Postsurgical change of the glenohumeral joint and acromioclavicular joint.
== END 2019-10-09 15:53 | disposition home or self-care (01) ==
LOC: EC 14:14
DX: S09.90XA Unspecified injury of head, initial encounter (principal); M54.2 Cervicalgia; M25.511 Pain in right shoulder; E11.40 Type 2 diabetes mellitus with diabetic neuropathy, unspecified; F41.9 Anxiety disorder, unspecified; F32.9 Major depressive disorder, single episode, unspecified; F17.200 Nicotine dependence, unspecified, uncomplicated; Z79.4 Long term (current) use of insulin; Z79.899 Other long term (current) drug therapy; Z88.0 Allergy status to penicillin; Z88.5 Allergy status to narcotic agent; Z88.8 Allergy status to other drugs, medicaments and biological substances; W01.198A Fall on same level from slipping, tripping and stumbling with subsequent striking against other object, initial encounter
CPT/HCPCS: 70450; 72125; 99284

== ENCOUNTER → 2019-12-04 | Outpatient (CLI) | payer MEDICARE, OTHER ==
--- NOTE | 2019-12-04 15:27 | XR ---
EXAMINATION TYPE: XR foot complete LT DATE OF EXAM: 12/04/2019 CLINICAL HISTORY: Fourth digit of the left foot pain, swelling, and bruising after injury TECHNIQUE: Frontal, lateral, and oblique images of the left foot are obtained. COMPARISON: None FINDINGS: There is no acute fracture/dislocation evident in the left foot. The joint spaces in the left foot appear alignment with mild osseous liver change of the distal interphalangeal joints. Larg e Achilles and small plantar heel spurs are seen. The overlying soft tissue appears unremarkable. IMPRESSION: There is no acute fracture or dislocation in the left foot.
== END | disposition home or self-care (01) ==
LOC: RAD 14:58
PROVIDERS: ATTEND Family Medicine
DX: S90.32XA Contusion of left foot, initial encounter (principal)

== ENCOUNTER → 2020-01-04 | Outpatient (CLI) | payer MEDICARE, OTHER ==
--- NOTE | 2020-01-04 14:55 | XR ---
EXAMINATION TYPE: XR chest 2V DATE OF EXAM: 01/04/2020 COMPARISON: 03/21/2015 HISTORY: Cough TECHNIQUE: Frontal and lateral views of the chest are obtained. FINDINGS: Focal opacity of the left midlung is new from the prior 03/21/2015. Remainder the lungs are clear without pleural effusion or pneumothorax. Pulmonary hyperinflation is seen that may represent underlying COPD. There is diffuse osseous demineralization. Moderate degenerative change of the spine . Partial visualization of a cervical fusion device. Prior right rotator cuff surgery. IMPRESSION: Left midlung patchy opacity may represent atelectasis or pneumonia, new from the prior.
== END | disposition home or self-care (01) ==
LOC: RADXRMAIN 13:53
PROVIDERS: ATTEND Family Medicine
DX: R91.8 Other nonspecific abnormal finding of lung field (principal); R05 Cough
CPT/HCPCS: 71046

== ENCOUNTER 2020-03-23 19:44 | Inpatient (IN) | payer MEDICARE, MEDICAID ==
--- NOTE | 2020-03-23 20:17 | ED ---
General Adult HPI - General Chief complaint: Psychiatric Symptoms Stated complaint: Mental health Time Seen by Provider: 03/23/20 19:46 Source: patient, EMS, RN notes reviewed Mode of arrival: EMS Limitations: no limitations - History of Present Illness Initial comments: 64 year old female with a past medical history of diabetes mellitus, anxiety, depression presents to the emergency department for a chief complaint of suicidal thoughts. Patient states she "doubled up" on her night meds last night. Patient is unsure exactly what she took and how much. Patient states this was about 24 hours ago. She feels fine at this time however still feels s uicidal. States she has been more depressed for "quite some time." She is unable to quantify this.Patient has no other complaints at this time including shortness of breath, chest pain, abdominal pain, nausea or vomiting, headache, or visual changes. - Related Data Home Medications Medication Instructions Recorded Confirmed Pregabalin [Lyrica] 150 mg PO BID 09/24/17 03/23/20 DULoxetine HCL [Cymbalta] 60 mg PO BID 03/23/20 03/23/20 Insulin Glargine,Hum.rec.anlog See Protocol SQ DAILY 03/23/20 03/23/20 [Rosi Johnson] Omeprazole [PriLOSEC] 40 mg PO DAILY 03/23/20 03/23/20 busPIRone HCL 15 mg PO BID 03/23/20 03/23/20 oxyCODONE-APAP 7.5-325MG [Percocet 1 tab PO TID PRN 03/23/20 03/23/20 7.5-325 mg] Previous Rx's Medication Instructions Recorded lamoTRIgine [LaMICtal] 200 mg PO HS #30 tablet 09/30/17 traZODone HCL [Desyrel] 200 mg PO HS #60 tab 09/30/17 Allergies Allergy/AdvReac Type Severity Reaction Status Date / Time ampicillin AdvReac Nausea & Verified 03/23/20 20:58 Vomiting & Diarrhea fluoxetine [From Prozac] AdvReac SUICIDAL Verified 03/23/20 20:58 morphine AdvReac Nausea & Verified 03/23/20 20:58 Vomiting Review of Systems ROS Statement: Those systems with pertinent positive or pertinent negative responses have been documented in the HPI. ROS Other: All systems not noted in ROS Statement are negative. Past Medical History Past Medical History: Diabetes Mellitus Additional Past Medical History / Comment(s): ANX/DEPRESSION,NEUROPATHY, NECK PAIN, DIVERTICULAR DISEASE, CONSTIPATION -LAST BM 2-3 DAYS AGO, SHINGLES AGE 19, "IRREG HEART BEAT", FALLS- "BROKE LT FOOT WEARS A BRACE". History of Any Multi-Drug Resistant Organisms: None Reported Past Surgical History: Section, Cholecystectomy, Hysterectomy Additional Past Surgical History / Comment(s): Neck surgery, right knee surgery Past Anesthesia/Blood Transfusion Reactions: No Reported Reaction Additional Past Anesthesia/Blood Transfusion Reaction / Comment(s): past blood transfusion-no reaction. Past Psychological History: Anxiety, Depression Smoking Status: Current every day smoker Past Alcohol Use History: None Reported Past Drug Use History: None Reported General Exam Limitations: no limitations General appearance: alert, in no apparent distress Head exam: Present: atraumatic Eye exam: Present: normal appearance, PERRL, EOMI. Absent: scleral icterus, conjunctival injection, periorbital swelling ENT exam: Present: normal exam, mucous membranes moist Neck exam: Present: normal inspection, full ROM. Absent: tenderness, meningismus, lymphadenopathy Respiratory exam: Present: normal lung sounds bilaterally. Absent: respiratory distress, wheezes, rales, rhonchi, stridor Cardiovascular Exam: Present: regular rate, normal rhythm, normal heart sounds. Absent: systolic murmur, diastolic murmur, rubs, gallop, clicks GI/Abdominal exam: Present: soft, normal bowel sounds. Absent: distended, tenderness, guarding, rebound, rigid Extremities exam: Present: normal inspection, full ROM, normal capillary refill. Absent: tenderness, pedal edema, joint swelling, calf tenderness Neurological exam: Present: alert, oriented X3, other (gcs 15) Psychiatric exam: Present: suicidal ideation. Absent: homicidal ideation Course Vital Signs 03/23/20 19:46 Temperature 98.0 F Pulse Rate 70 Respiratory 18 Rate Blood Pressure 139/69 O2 Sat by Pulse 98 Oximetry Medical Decision Making - Medical Decision Making Patient was evaluated by EPS, recommend inpatient management. Patient signed herself in. - Lab Data Result diagrams: 03/23/20 20:10 03/23/20 20:10 Lab Results 03/23/20 03/23/20 Range/Units 20:10 20:10 WBC 6.7 (3.8-10.6) k/uL RBC 4.33 (3.80-5.40) m/uL Hgb 11.9 (11.4-16.0) gm/dL Hct 37.2 (34.0-46.0) % MCV 86.0 (80.0-100.0) fL MCH 27.4 (25.0-35.0) pg MCHC 31.9 (31.0-37.0) g/dL RDW 15.1 (11.5-15.5) % Plt Count 305 (150-450) k/uL Neutrophils % 64 % Lymphocytes % 28 % Monocytes % 5 % Eosinophils % 1 % Basophils % 1 % Neutrophils # 4.3 (1.3-7.7) k/uL Lymphocytes # 1.9 (1.0-4.8) k/uL Monocytes # 0.3 (0-1.0) k/uL Eosinophils # 0.1 (0-0.7) k/uL Basophils # 0.1 (0-0.2) k/uL Sodium 139 (137-145) mmol/L Potassium 4.0 (3.5-5.1) mmol/L Chloride 105 (98-107) mmol/L Carbon Dioxide 25 (22-30) mmol/L Anion Gap 9 mmol/L BUN 14 (7-17) mg/dL Creatinine 0.82 (0.52-1.04) mg/dL Est GFR (CKD-EPI)AfAm 86 (>60 ml/min/1.73 sqM) Est GFR (CKD-EPI)NonAf 75 (>60 ml/min/1.73 sqM) Glucose 133 H (74-99) mg/dL Calcium 9.2 (8.4-10.2) mg/dL Salicylates <1.0 mg/dL Acetaminophen <10.0 ug/mL Disposition Clinical Impression: Suicidal thoughts Disposition: ADMITTED IP TO THIS HOSP Condition: Fair Is patient prescribed a controlled substance at d/c from ED?: No Referrals: Charlie Esqueda MD [Primary Care Provider] - 1-2 days Time of Disposition: 22:50
[2020-03-23 20:37] LABS: Basophils # (A) 0.1 k/uL (0-0.2); Basophils % (A) 1 %; Eosinophils # (A) 0.1 k/uL (0-0.7); Eosinophils % (A) 1 %; HCT 37.2 % (34.0-46.0); HGB 11.9 gm/dL (11.4-16.0); Lymphocytes # (A) 1.9 k/uL (1.0-4.8); Lymphocytes % (A) 28 %; MCH 27.4 pg (25.0-35.0); MCHC 31.9 g/dL (31.0-37.0); Mean Platelet Volume 7.7; Monocytes # (A) 0.3 k/uL (0-1.0); Monocytes % (A) 5 %; Neutrophils # (A) 4.3 k/uL (1.3-7.7); Neutrophils % (A) 64 %; Platelet Count 305 k/uL (150-450); RBC 4.33 m/uL (3.80-5.40); RDW 15.1 % (11.5-15.5); WBC 6.7 k/uL (3.8-10.6)
[2020-03-23 20:58] LABS: Acetaminophen <10.0 ug/mL; African American GFR (CKD) 86 (>60 ml/min/1.73 sqM); Anion Gap 9 mmol/L; Blood Urea Nitrogen 14 mg/dL (7-17); Calcium 9.2 mg/dL (8.4-10.2); Carbon Dioxide 25 mmol/L (22-30); Chloride 105 mmol/L (98-107); Glucose 133 mg/dL (74-99); Non-African American GFR(CKD) 75 (>60 ml/min/1.73 sqM); Salicylate <1.0 mg/dL; Sodium 139 mmol/L (137-145)
[2020-03-23] MEDS ORDERED: MAGNESIUM HYDROXIDE 2,400 MG/10 ML CUP PO PRN (23:19)
[2020-03-23] MEDS ORDERED: MAG HYDROX/AL HYDROX/SIMETH 30 ML CUP PO PRN (23:19)
[2020-03-24 07:19] LABS: Total Protein 6.7 g/dL (6.3-8.2)
[2020-03-24 07:46] LABS: Bilirubin,Unconjugated 0.3 mg/dL (0.0-1.1)
[2020-03-24 07:49] LABS: Glucose,Whole Blood 84 mg/dL (75-99)
[2020-03-24 07:49] LABS: Total Bilirubin 0.2 mg/dL (0.2-1.3)
[2020-03-24] MEDS: INSULIN ASPART (NovoLOG) 100 UNIT/ML VIAL SQ SCH ×4 (08:13→20:22)
[2020-03-24] MEDS: NICOTINE 14MG/24HR PATCH TRANSDERM SCH ×2 (09:06→12:58)
[2020-03-24 11:52] LABS: Appearance,Urine Clear (Clear); Bacteria,Urine Rare /hpf; Bilirubin,Urine Negative (Negative); Blood,Urine Negative (Negative); Color,Urine Yellow; Glucose,Urine (UA) Negative (Negative); Hyaline Casts,Urine 1 /lpf (0-2); Ketones,Urine Negative (Negative); Leukocyte Esterase,Urine Trace (Negative); Mucus,Urine Few /hpf; Nitrite,Urine Negative (Negative); PH, Urine 5.5 (5.0-8.0); Protein,Urine Trace (Negative); RBC,Urine 4 /hpf (0-5); Specific Gravity,Urine 1.029 (1.001-1.035); Squamous Epithelial Cell,Urine 6 /hpf (0-4); WBC,Urine 2 /hpf (0-5)
[2020-03-24 11:57] LABS: Amphetamine Screen,Urine Not Detected (NotDetected); Barbiturate Screen,Urine Not Detected (NotDetected); Benzodiazepines Screen,Urine Not Detected (NotDetected); Cocaine Screen,Urine Not Detected (NotDetected); Methadone Screen, Urine Not Detected (NotDetected); Opiate Screen,Urine Not Detected (NotDetected); Oxycodone Screen, Urine Not Detected (NotDetected); Phencyclidine Screen,Urine Not Detected (NotDetected); Tricyclic Antidepressant,Urine Not Detected (NotDetected); Urn Cannabinoid Scrn Not Detected (NotDetected)
[2020-03-24 12:46] LABS: Glucose,Whole Blood 159 mg/dL (75-99)
[2020-03-24] MEDS: PREGABALIN 75 MG CAP PO SCH (12:54)
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
[2020-03-24] MEDS: oxyCODONE-APAP 7.5-325MG 1 EACH TAB PO PRN (16:40)
[2020-03-24 17:24] LABS: Glucose,Whole Blood 121 mg/dL (75-99)
[2020-03-24 20:21] LABS: Glucose,Whole Blood 149 mg/dL (75-99)
[2020-03-24] MEDS: busPIRone HCl 5 MG TAB PO SCH (20:25)
[2020-03-24] MEDS: DULoxetine HCL 60 MG CAPSULE.DR PO SCH (20:25)
[2020-03-24] MEDS: lamoTRIgine 100 MG TAB PO SCH (20:25)
[2020-03-24] MEDS: traZODone HCL 50 MG TAB PO SCH (20:25)
[2020-03-24] MEDS: ACETAMINOPHEN TAB 325 MG TAB PO PRN (20:25)
[2020-03-25] MEDS: ACETAMINOPHEN TAB 325 MG TAB PO PRN (00:28)
--- NOTE | 2020-03-25 01:42 | CONS ---
CONSULTATION The patient apparently came to the psychiatric [facility] for some kind of depression, worsening depression with suicidal ideations and recent change, possibly overdose with all of her prescribed medicines, doubled up on the dose because she did not care if she lived or any longer. Increasingly depressed over the last few weeks and experiencing migraines. She has had on and off depression ever since her daughter years ago. Denied any delusions or hallucinations. She was in here in 2017 on the psych [facility]. Medications are reviewed. Vital signs reviewed. Will restart home medications for diabetes mellitus, COPD, chronic pain, migraine, prior neck surgery, Dr. Frazier for pain management. He has her on Lyrica, Fioricet and Percocet. Denies drug use, marijuana or alcohol. PSYCH HISTORY: Mother, sister had depression. ASSESSMENT: 1. Depression. 2. Suicidal ideations. 3. Panic attack. 4. Posttraumatic stress disorder. 5. History of chronic obstructive pulmonary disease. 6. Nicotine addiction. 7. Diabetes mellitus. 8. Chronic pain syndrome. Continue home medicines. Treat psychologically. Please see further orders. MMODL / IJN: [id number] /
[2020-03-25 07:43] LABS: Glucose,Whole Blood 116 mg/dL (75-99)
[2020-03-25] MEDS: INSULIN ASPART (NovoLOG) 100 UNIT/ML VIAL SQ SCH ×4 (08:01→20:27)
[2020-03-25] MEDS: oxyCODONE-APAP 7.5-325MG 1 EACH TAB PO PRN (08:38)
[2020-03-25] MEDS: busPIRone HCl 5 MG TAB PO SCH ×2 (08:40→21:04)
[2020-03-25] MEDS: DULoxetine HCL 60 MG CAPSULE.DR PO SCH ×2 (08:40→21:04)
[2020-03-25] MEDS: PREGABALIN 75 MG CAP PO SCH (08:40)
[2020-03-25] MEDS: NICOTINE 14MG/24HR PATCH TRANSDERM SCH (08:40)
--- NOTE | 2020-03-25 11:02 | P.PN ---
Progress Note - Text Interval history: The patient indicates her mood is still depressed. She states she feels sad and lonely. She indicates that she slept very poorly last evening for unexplained reasons. Appetite is been stable. She did attend a few groups. She describes sadness over having little communication with her youngest daughter grief over the loss of her oldest daughter. She describes having complaints of chronic pain. She asked that we use Motrin in addition to her other analgesics. Mental status exam: The patient's a female appearing her stated age she is dressed in hospital gowns she's wearing her eyeglasses her hair is pulled back. Eye contact is appropriate. She appears sad she is tearful throughout the session. She endorses a depressed mood. She reports continued hopelessness thinking was suicidal ideation. She reports no homicidal ideation intent or plan. She states that she was home now she would just triple her medicines instead of doubling them. She endorses no auditory or visual hallucinations or any specific delusions. There is no observed evidence of psychosis. She demonstrates no tangential thinking loose associations or flight of ideas. Insight and judgment limited. Plan: I placed a call with [facility] to speak with the patient's outpatient psychiatrist Dr. Mullen I am awaiting a return call. I expect that we will make some changes to her antidepressant medication. It does appear that she does have some personality disorder traits that are involved in this presen tation. She is encouraged to participate in the milieu. We will monitor her for safety. She continues to require inpatient psychiatric hospitalization due to acute safety risk. Vital signs reviewed.
[2020-03-25] MEDS: IBUPROFEN 600 MG TAB PO PRN ×2 (11:05→22:17)
[2020-03-25 11:55] LABS: Hemoglobin A1C 7.4 % (4.0-6.0)
[2020-03-25 17:45] LABS: Glucose,Whole Blood 110 mg/dL (75-99)
[2020-03-25] MEDS: BACITRACIN 500 UNIT/GM OINT 28.4 GM TUBE TOPICAL SCH (21:04)
[2020-03-25] MEDS: lamoTRIgine 100 MG TAB PO SCH (21:04)
[2020-03-25] MEDS: traZODone HCL 50 MG TAB PO SCH (21:05)
[2020-03-25] MEDS: TRIAMCINOLONE ACET 0.1% OINTMENT 15 GM TUBE TOPICAL SCH (21:05)
[2020-03-26] MEDS: LORazepam 1 MG TAB PO PRN (01:15)
[2020-03-26] MEDS: IBUPROFEN 600 MG TAB PO PRN ×2 (06:09→15:42)
[2020-03-26 07:39] LABS: Glucose,Whole Blood 112 mg/dL (75-99)
[2020-03-26] MEDS: INSULIN ASPART (NovoLOG) 100 UNIT/ML VIAL SQ SCH ×4 (08:10→21:04)
--- NOTE | 2020-03-26 09:38 | P.PN ---
Progress Note - Text Interval history: The patient is found in the hallway she follows me to an interview room. She indicates that her mood is down. She continues to have hopeless thoughts. She states that sleep has been poor she feels restless. Appetite stable. She reports less attendance in terms of groups. I was able to speak with her outpatient psychiatrist to review past medication trials. Her psychiatrist states that they have tried several medications in the past. I reviewed options with the patient in terms of her psychotropic medication her questions were answered. We discussed using another serotonin norepinephrine reuptake inhibitor such as Pristiq. Mental status exam: The patient is alert she is dressed in [facility] she is wearing her eyeglasses. Speech is fluent spontaneous nonpressured. She describes a depressed mood with hopelessness thoughts. She reports no homicidal ideation but continues to have suicidal ideation. She is reporting no auditory or visual hallucinations or any specific delusions. She demonstrates no verbal or physical aggressiveness. She demonstrates no involuntary repetitive movements. Insight and judgment limited. She remains oriented to person place and date. Affect is dysphoric. Plan: The patient will continue on her current medication we will plan to unger sition her off of Cymbalta and tapered fashion and we will start her on Pristiq. We will continue her other psychotropic medications at this time. We will monitor for safety she is encouraged to participate in the milieu. Vital signs reviewed. She requires continued psychiatric hospitalization.
[2020-03-26] MEDS: busPIRone HCl 5 MG TAB PO SCH ×2 (09:39→21:03)
[2020-03-26] MEDS: BACITRACIN 500 UNIT/GM OINT 28.4 GM TUBE TOPICAL SCH ×2 (09:39→21:03)
[2020-03-26] MEDS: PREGABALIN 75 MG CAP PO SCH (09:39)
[2020-03-26] MEDS: NICOTINE 14MG/24HR PATCH TRANSDERM SCH (09:39)
[2020-03-26] MEDS: DULoxetine HCL 60 MG CAPSULE.DR PO SCH (09:40)
[2020-03-26] MEDS: TRIAMCINOLONE ACET 0.1% OINTMENT 15 GM TUBE TOPICAL SCH ×2 (09:40→21:03)
[2020-03-26] MEDS ORDERED: DULoxetine HCL 60 MG CAPSULE.DR PO STA (09:41)
[2020-03-26] MEDS: oxyCODONE-APAP 7.5-325MG 1 EACH TAB PO PRN (09:45)
[2020-03-26] MEDS ORDERED: PANTOPRAZOLE 40 MG TABLET PO ONE (11:31)
[2020-03-26] MEDS: PANTOPRAZOLE 40 MG TABLET PO SCH ×2 (11:32→17:17)
[2020-03-26] MEDS: lamoTRIgine 100 MG TAB PO SCH (21:04)
[2020-03-26] MEDS: traZODone HCL 50 MG TAB PO SCH (21:04)
[2020-03-27] MEDS: IBUPROFEN 600 MG TAB PO PRN (05:09)
[2020-03-27] MEDS: INSULIN ASPART (NovoLOG) 100 UNIT/ML VIAL SQ SCH ×4 (07:53→21:18)
[2020-03-27] MEDS: NICOTINE 14MG/24HR PATCH TRANSDERM SCH (08:11)
[2020-03-27] MEDS: PANTOPRAZOLE 40 MG TABLET PO SCH ×2 (08:11→17:21)
[2020-03-27] MEDS: BACITRACIN 500 UNIT/GM OINT 28.4 GM TUBE TOPICAL SCH ×2 (08:12→21:19)
[2020-03-27] MEDS: busPIRone HCl 5 MG TAB PO SCH ×2 (08:12→21:18)
[2020-03-27] MEDS: TRIAMCINOLONE ACET 0.1% OINTMENT 15 GM TUBE TOPICAL SCH ×2 (08:14→21:43)
[2020-03-27] MEDS: ACETAMINOPHEN TAB 325 MG TAB PO PRN (08:16)
[2020-03-27] MEDS ORDERED: DULoxetine HCL 60 MG CAPSULE.DR PO SCH (09:00)
[2020-03-27] MEDS: PREGABALIN 75 MG CAP PO SCH (10:02)
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
[2020-03-27 12:43] LABS: Glucose,Whole Blood 138 mg/dL (75-99)
[2020-03-27] MEDS: oxyCODONE-APAP 7.5-325MG 1 EACH TAB PO PRN ×2 (12:53→21:23)
[2020-03-27] MEDS: LORazepam 1 MG TAB PO PRN (17:21)
[2020-03-27] MEDS: traZODone HCL 50 MG TAB PO SCH (21:18)
[2020-03-27] MEDS: lamoTRIgine 100 MG TAB PO SCH (21:18)
[2020-03-28] MEDS: IBUPROFEN 600 MG TAB PO PRN ×3 (01:36→16:38)
[2020-03-28 07:57] LABS: Glucose,Whole Blood 127 mg/dL (75-99)
[2020-03-28] MEDS: INSULIN ASPART (NovoLOG) 100 UNIT/ML VIAL SQ SCH ×4 (08:33→20:33)
[2020-03-28] MEDS: DESVENLAFAXINE SUCCINATE 50 MG TAB.ER.24H PO SCH (09:05)
[2020-03-28] MEDS: PANTOPRAZOLE 40 MG TABLET PO SCH ×2 (09:05→16:39)
[2020-03-28] MEDS: NICOTINE 14MG/24HR PATCH TRANSDERM SCH (09:05)
[2020-03-28] MEDS: BACITRACIN 500 UNIT/GM OINT 28.4 GM TUBE TOPICAL SCH ×2 (09:05→20:31)
[2020-03-28] MEDS: busPIRone HCl 5 MG TAB PO SCH ×2 (09:05→20:32)
[2020-03-28] MEDS: DULoxetine HCL 30 MG CAPSULE.DR PO SCH (09:06)
[2020-03-28] MEDS: PREGABALIN 75 MG CAP PO SCH (09:07)
[2020-03-28] MEDS: TRIAMCINOLONE ACET 0.1% OINTMENT 15 GM TUBE TOPICAL SCH ×2 (09:07→20:31)
--- NOTE | 2020-03-28 10:16 | P.PN ---
Progress Note - Text Interval history: The patient is found in her room she follows me to an interview room. She indicates that she is having more back pain this morning she just took some medication and is waiting for it to work. She indicates that she is intermittently attending groups. sHe states her mood is "okay" however during the conversation she indicates that she continues to have suicidal thoughts. She has no questions or concerns regarding her psychotropic medication. No reports of any behavioral disturbance yesterday. Mental status exam: The patient is alert she seated in the chair calmly she states she is demonstrating a rocking behavior to help her back. She has intermittent eye contact. She endorses a mood is okay affect is dysphoric she reports continued suicidal thoughts. She reports no homicidal ideation intent or plan. She is reporting no auditory or visual hallucinations or specific delusions. She is sarcastic at times she is direct with speech. She can be defensive at times during the conversation. He demonstrates no verbal or physical aggressiveness she demonstrates no involuntary repetitive movements. Insight and judgment limited. Plan: The patient will continue on her current psychotropic medications. We will continue with the cross titration onto Pristiq and off of Cymbalta. We will monitor her for safety and encourage participation in the milieu. She requires continued psychiatric hospitalization. Vital signs reviewed.
[2020-03-28] MEDS: LORazepam 1 MG TAB PO PRN (16:37)
[2020-03-28] MEDS: traZODone HCL 50 MG TAB PO SCH (20:31)
[2020-03-28] MEDS: lamoTRIgine 100 MG TAB PO SCH (20:32)
[2020-03-29 07:57] LABS: Glucose,Whole Blood 151 mg/dL (75-99)
[2020-03-29] MEDS: INSULIN ASPART (NovoLOG) 100 UNIT/ML VIAL SQ SCH ×4 (08:20→20:55)
[2020-03-29] MEDS: PANTOPRAZOLE 40 MG TABLET PO SCH ×2 (08:21→18:00)
[2020-03-29] MEDS: DULoxetine HCL 30 MG CAPSULE.DR PO SCH (08:21)
[2020-03-29] MEDS: NICOTINE 14MG/24HR PATCH TRANSDERM SCH (08:21)
[2020-03-29] MEDS: DESVENLAFAXINE SUCCINATE 50 MG TAB.ER.24H PO SCH (08:21)
[2020-03-29] MEDS: busPIRone HCl 5 MG TAB PO SCH ×2 (08:21→20:59)
[2020-03-29] MEDS: BACITRACIN 500 UNIT/GM OINT 28.4 GM TUBE TOPICAL SCH ×2 (08:22→20:58)
[2020-03-29] MEDS: PREGABALIN 75 MG CAP PO SCH ×2 (08:22→21:00)
[2020-03-29] MEDS: TRIAMCINOLONE ACET 0.1% OINTMENT 15 GM TUBE TOPICAL SCH ×2 (08:22→20:59)
[2020-03-29] MEDS: oxyCODONE-APAP 7.5-325MG 1 EACH TAB PO PRN (08:48)
[2020-03-29 09:16] VITALS: BMI 27.2
--- NOTE | 2020-03-29 09:27 | P.PN ---
Progress Note - Text Interval history: The patient is found in the [facility] she follows me to an interview room. She reports that is mildly improved. She indicates that she continues to make an effort to attend groups. We reviewed her psychotropic medications. She states that she is doing well with the titration off of Cymbalta that she is experiencing some mild dizziness. We discussed that we would continue the 30 mg dose of Cymbalta through Wednesday. She has no questions or concerns regarding the Pristiq. Sleep and appetite are reported to be normal. She asked that her Lyrica be placed back at a twice daily dosing. Mental status exam: The patient is alert she is dressed in her own clothing hygiene grooming adequate. Eye contact is appropriate. Speech is fluent spontaneous nonpressured. She reports her mood is a little better today affect is brighter. She does report continued hopelessness thoughts. In terms of suicidal ideation she feels safe in the hospital. No reports of homicidal ideation intent or plan. She is endorsing no auditory or visual hallucinations or any specific delusions. She demonstrates no verbal or physical aggressiveness. Insight and judgment mildly improved. She is oriented to person place and date. Plan: The patient will continue on her current medications. After Wednesday I will likely discontinue the Cymbalta. We will assess her progress over the weekend. If she demonstrates continued improvement and appears to be clinically safe we will consider a discharge Wednesday or Wednesday. We will continue to monitor her for safety and encourage full participation in the milieu. Vital signs reviewed.
[2020-03-29] MEDS: LORazepam 1 MG TAB PO PRN (13:13)
[2020-03-29] MEDS: IBUPROFEN 600 MG TAB PO PRN (18:00)
[2020-03-29] MEDS: traZODone HCL 50 MG TAB PO SCH (20:59)
[2020-03-29] MEDS: lamoTRIgine 100 MG TAB PO SCH (21:00)
[2020-03-30 07:46] LABS: Glucose,Whole Blood 172 mg/dL (75-99)
[2020-03-30] MEDS: INSULIN ASPART (NovoLOG) 100 UNIT/ML VIAL SQ SCH ×4 (07:51→20:54)
[2020-03-30] MEDS: busPIRone HCl 5 MG TAB PO SCH ×2 (07:51→20:48)
[2020-03-30] MEDS: BACITRACIN 500 UNIT/GM OINT 28.4 GM TUBE TOPICAL SCH ×2 (07:52→20:46)
[2020-03-30] MEDS: DESVENLAFAXINE SUCCINATE 50 MG TAB.ER.24H PO SCH (07:52)
[2020-03-30] MEDS: TRIAMCINOLONE ACET 0.1% OINTMENT 15 GM TUBE TOPICAL SCH ×2 (07:52→20:46)
[2020-03-30] MEDS: PREGABALIN 75 MG CAP PO SCH ×2 (07:52→20:48)
[2020-03-30] MEDS: PANTOPRAZOLE 40 MG TABLET PO SCH ×2 (07:52→17:39)
[2020-03-30] MEDS: NICOTINE 14MG/24HR PATCH TRANSDERM SCH (07:52)
[2020-03-30] MEDS: DULoxetine HCL 30 MG CAPSULE.DR PO SCH (07:52)
--- NOTE | 2020-03-30 12:04 | P.PN ---
Progress Note - Text Progress Note Date: 03/30/20 Interval history: Patient is seen in cross coverage today. She reports she was in and out of sleep last night. She has not been attending any groups today. She does feel like she is feeling better than when she was admitted. She talks about discharge planning for early next week. She does not verbalize any adverse psychotropic medication side effects. Mental status exam: She is alert and cooperative with the interview. Her affect is restricted. Her mood she describes is doing okay. She does not verbalize any thoughts of harm to self or others. No evidence of active psychosis or agitation. She does not present with any rapid or pressured speech. Plan: Patient will be maintained on current psychotropic medication regimen. Continue to monitor for medication side effects and monitor her ongoing response to treatment.
[2020-03-30] MEDS: oxyCODONE-APAP 7.5-325MG 1 EACH TAB PO PRN (13:11)
[2020-03-30] MEDS: LORazepam 1 MG TAB PO PRN (18:10)
[2020-03-30] MEDS: traZODone HCL 50 MG TAB PO SCH (20:48)
[2020-03-30] MEDS: IBUPROFEN 600 MG TAB PO PRN (20:48)
[2020-03-30] MEDS: lamoTRIgine 100 MG TAB PO SCH (20:48)
[2020-03-31] MEDS: INSULIN ASPART (NovoLOG) 100 UNIT/ML VIAL SQ SCH ×5 (07:49→20:49)
[2020-03-31] MEDS: LORazepam 1 MG TAB PO PRN ×2 (08:27→21:35)
[2020-03-31] MEDS: IBUPROFEN 600 MG TAB PO PRN (08:29)
[2020-03-31] MEDS: BACITRACIN 500 UNIT/GM OINT 28.4 GM TUBE TOPICAL SCH ×2 (08:30→21:46)
[2020-03-31] MEDS: PREGABALIN 75 MG CAP PO SCH ×2 (08:30→21:29)
[2020-03-31] MEDS: NICOTINE 14MG/24HR PATCH TRANSDERM SCH (08:30)
[2020-03-31] MEDS: DESVENLAFAXINE SUCCINATE 50 MG TAB.ER.24H PO SCH (08:30)
[2020-03-31] MEDS: TRIAMCINOLONE ACET 0.1% OINTMENT 15 GM TUBE TOPICAL SCH ×2 (08:30→21:46)
[2020-03-31] MEDS: DULoxetine HCL 30 MG CAPSULE.DR PO SCH (08:30)
[2020-03-31] MEDS: PANTOPRAZOLE 40 MG TABLET PO SCH ×2 (08:30→17:55)
[2020-03-31] MEDS: busPIRone HCl 5 MG TAB PO SCH ×2 (09:07→21:28)
--- NOTE | 2020-03-31 13:17 | P.PN ---
Progress Note - Text Progress Note Date: 03/31/20 Interval history: Patient is seen in cross coverage again today. She seems to relay that she sleeping and eating okay. She does describe having some restless leg type symptoms. She is currently in the process of tapering off of Cymbalta and has started Pristiq. Mental status exam: She is alert and cooperative with the interview. Her speech is fluent, not rapid or pressured. Her thought processes are organized. Her mood is described as "I don't give a hoot." She relays that she is having thoughts of suicide, relays that she wants to go home and makes reference to hurting herself at home. She does report that she feels safe here in the hospital. We talked about her going to staff if she is struggling. No evidence of active psychosis and she is not displaying any agitation. Plan: We'll maintain current psychotropic medications and monitor for any medication side effects. Continue to monitor regarding any suicidal ideations and maintain SP 15 minute precautions. Continue to monitor for her ongoing response to treatment.
[2020-03-31 17:59] LABS: Glucose,Whole Blood 122 mg/dL (75-99)
[2020-03-31] MEDS: lamoTRIgine 100 MG TAB PO SCH (21:28)
[2020-03-31] MEDS: traZODone HCL 50 MG TAB PO SCH (21:34)
[2020-03-31] MEDS: oxyCODONE-APAP 7.5-325MG 1 EACH TAB PO PRN (21:36)
[2020-04-01 07:41] LABS: Glucose,Whole Blood 129 mg/dL (75-99)
[2020-04-01] MEDS: INSULIN ASPART (NovoLOG) 100 UNIT/ML VIAL SQ SCH ×4 (08:21→21:20)
[2020-04-01] MEDS: NICOTINE 14MG/24HR PATCH TRANSDERM SCH (08:21)
[2020-04-01] MEDS: BACITRACIN 500 UNIT/GM OINT 28.4 GM TUBE TOPICAL SCH ×2 (08:22→21:20)
[2020-04-01] MEDS: PANTOPRAZOLE 40 MG TABLET PO SCH ×2 (08:22→17:41)
[2020-04-01] MEDS: DESVENLAFAXINE SUCCINATE 50 MG TAB.ER.24H PO SCH (08:22)
[2020-04-01] MEDS: TRIAMCINOLONE ACET 0.1% OINTMENT 15 GM TUBE TOPICAL SCH ×2 (08:22→21:20)
[2020-04-01] MEDS: busPIRone HCl 5 MG TAB PO SCH (08:22)
[2020-04-01] MEDS: IBUPROFEN 600 MG TAB PO PRN ×2 (08:23→21:22)
[2020-04-01] MEDS: DULoxetine HCL 30 MG CAPSULE.DR PO SCH (08:23)
[2020-04-01] MEDS: PREGABALIN 75 MG CAP PO SCH ×2 (08:23→21:22)
[2020-04-01] MEDS: ARIPiprazole 2 MG TAB PO SCH (10:50)
--- NOTE | 2020-04-01 11:12 | P.PN ---
Progress Note - Text Interval history: The patient is found in group she follows me to an interview room. The progress notes from the weekend were reviewed. It appears that she's been reporting continued suicidal ideation while in group. She had reported to Dr. Morin just yesterday that she wanted to go home so she can act on her suicidal thoughts. Initially she states today she is doing okay when we discussed what she is telling other clinicians she states that she does still have suicidal thoughts. She becomes tearful. She reports that she didn't sleep well last night staff reported she slept 6 hours. Appetite is stable. We discussed some problem solving strategies. She continues to be fairly superficial in those discussions. She continues to use attempts at humor. We reviewed her psychotropic medications. We decided that we would augment the Pristiq with Abilify. She has no questions or concerns. Mental status exam: The patient is alert she is dressed in her own clothing which is the same. Hygiene grooming adequate. Eye contact is intermittent. Speech is fluent spontaneous at times. She demonstrates a tearful affect during the session. She reports hopelessness thinking with continued suicidal thoughts. She reports no homicidal ideation intent or plan. She is reporting no auditory or visual hallucinations or any specific delusions. There is no observed evidence of psychosis hypomania or jillian. She demonstrates no tangential thinking loose associations or flight of ideas. She remains oriented to person place and date. She frequently moves her legs shaking them throughout the session. Plan: The patient will continue on the Pristiq as written. The Cymbalta will be discontinued. We will discontinue BuSpar and add Abilify 2 mg daily. We discussed using the Abilify as an augmentation strategy for severe symptoms of depression. She had no questions or concerns regarding the medication. She is encouraged to continue participating in the milieu. We will monitor her for safety. She requires continued psychiatric hospitalization.
[2020-04-01 11:13] LABS: Glucose,Whole Blood 157 mg/dL (75-99)
[2020-04-01 12:40] LABS: Glucose,Whole Blood 128 mg/dL (75-99)
[2020-04-01] MEDS: oxyCODONE-APAP 7.5-325MG 1 EACH TAB PO PRN (18:57)
[2020-04-01] MEDS: traZODone HCL 50 MG TAB PO SCH (21:20)
[2020-04-01] MEDS: lamoTRIgine 100 MG TAB PO SCH (21:20)
[2020-04-01] MEDS: LORazepam 1 MG TAB PO PRN (21:23)
[2020-04-02 07:38] LABS: Glucose,Whole Blood 147 mg/dL (75-99)
[2020-04-02] MEDS: INSULIN ASPART (NovoLOG) 100 UNIT/ML VIAL SQ SCH ×4 (07:52→20:13)
[2020-04-02] MEDS: NICOTINE 14MG/24HR PATCH TRANSDERM SCH (07:54)
[2020-04-02] MEDS: PANTOPRAZOLE 40 MG TABLET PO SCH ×2 (07:54→17:34)
[2020-04-02] MEDS: PREGABALIN 75 MG CAP PO SCH ×2 (07:54→21:03)
[2020-04-02] MEDS: BACITRACIN 500 UNIT/GM OINT 28.4 GM TUBE TOPICAL SCH ×2 (07:56→20:14)
[2020-04-02] MEDS: DESVENLAFAXINE SUCCINATE 50 MG TAB.ER.24H PO SCH (08:00)
[2020-04-02] MEDS: TRIAMCINOLONE ACET 0.1% OINTMENT 15 GM TUBE TOPICAL SCH ×2 (08:01→21:06)
--- NOTE | 2020-04-02 11:11 | P.PN ---
Progress Note - Text Interval history: The patient is found in the [facility] she follows me to an interview room. She indicates her mood is better today. She reports that she felt uneasy with the Abilify and does not wish to continue the medication. She has no questions or concerns regarding the Pristiq. She indicates that she has been attending groups. She has questions regarding her psychiatric diagnosis and we reviewed that she does have a borderline personality disorder. We discussed the role that psychotherapy comply in addressing her borderline personality disorder. It was suggested that she participate in a DBT group as an outpatient. She reports that sleep is been impaired appetite is stable. Mental status exam: The patient is alert she is dressed in her own clothing hygiene grooming adequate. Eye contact is appropriate. Speech is fluent spontaneous nonpressured. She demonstrates no tangential thinking loose associations or flight of ideas. She endorses no auditory or visual hallucinations or any specific delusions. There is no overt evidence of psychosis. She demonstrates no verbal or physical aggressiveness. She remains oriented to person place and date. Today she states that she feels less hopeless and reports having no acute suicidal ideation intent or plan. She reports no homicidal ideation intent or plan. Affect was brighter. Plan: The patient will continue on her current psychotropic medication however the Abilify will be discontinued. We will not restart the BuSpar at this time. We discussed trying to make an effort to reduce the number of medications that she is taking. We discussed the importance of trying to participate in individual psychotherapy and hopefully DBT group upon discharge. We will continue to monitor her for safety. We will consider discharging her in the next 1-2 days. Vital signs reviewed.
[2020-04-02] MEDS: ARIPiprazole 2 MG TAB PO SCH (12:07)
[2020-04-02] MEDS: IBUPROFEN 600 MG TAB PO PRN (15:16)
[2020-04-02] MEDS: LORazepam 1 MG TAB PO PRN (16:42)
[2020-04-02] MEDS: traZODone HCL 50 MG TAB PO SCH (21:03)
[2020-04-02] MEDS: lamoTRIgine 100 MG TAB PO SCH (21:03)
[2020-04-02] MEDS: oxyCODONE-APAP 7.5-325MG 1 EACH TAB PO PRN (21:07)
[2020-04-03] MEDS: ACETAMINOPHEN TAB 325 MG TAB PO PRN ×2 (03:23→08:38)
[2020-04-03] MEDS: INSULIN ASPART (NovoLOG) 100 UNIT/ML VIAL SQ SCH ×4 (08:07→21:03)
[2020-04-03] MEDS: PANTOPRAZOLE 40 MG TABLET PO SCH ×2 (08:36→17:56)
[2020-04-03] MEDS: DESVENLAFAXINE SUCCINATE 50 MG TAB.ER.24H PO SCH (08:36)
[2020-04-03] MEDS: NICOTINE 14MG/24HR PATCH TRANSDERM SCH (08:36)
[2020-04-03] MEDS: TRIAMCINOLONE ACET 0.1% OINTMENT 15 GM TUBE TOPICAL SCH ×2 (08:37→21:03)
[2020-04-03] MEDS: BACITRACIN 500 UNIT/GM OINT 28.4 GM TUBE TOPICAL SCH ×2 (08:37→21:03)
[2020-04-03] MEDS: PREGABALIN 75 MG CAP PO SCH ×2 (08:38→21:04)
[2020-04-03] MEDS: IBUPROFEN 600 MG TAB PO PRN (10:33)
--- NOTE | 2020-04-03 10:43 | P.PN ---
Progress Note - Text Interval history: The patient is found in her room she initially states she doesn't want to speak today but with repeated attempts she was willing to speak with me in an interview room. Nursing reports that the patient made statements last evening that she plans to go home and overdose. We discussed this in detail this morning. She states that she did not make those comments but she was tearful. We reviewed her psychotropic medications. Her questions were answered. She reports having some difficulty sleeping last evening. Appetite is stable. Mental status exam: The patient is alert she is dressed in her own clothing she appears frustrated at the beginning of our discussion but that improves during the course of the conversation. She reports that her mood is still down. She states that she is having some tearful episodes. She refutes statements that she made yesterday and states that she is safe and has no thoughts of harming herself. She reports no auditory or visual hallucinations or any specific delusions. There is no observed evidence of psychosis. Affect is initially frustrated in appearance she is briefly tearful than constricted. She demonstrates no verbal or physical aggressiveness she demonstrates no involuntary repetitive movements. Insight and judgment limited but slowly improving. She is oriented to person place and date. She reports that she is able to keep herself safe. Plan: The patient will continue on her current psychotropic medications. It's obvious that she does have a borderline personality disorder. Social work is asked to see if she could be enrolled in the DBT program at [facility]. Because of the patient's fluctuating report I feel we are required to monitor her at least another day for acute safety risk evaluation. We will continue on coping skill development. We will continue attempting efforts at helping her cognitively restructure situations. Vital signs reviewed.
[2020-04-03] MEDS: LORazepam 1 MG TAB PO PRN (11:44)
[2020-04-03] MEDS: lamoTRIgine 100 MG TAB PO SCH (21:04)
[2020-04-03] MEDS: traZODone HCL 50 MG TAB PO SCH (21:04)
[2020-04-03] MEDS: oxyCODONE-APAP 7.5-325MG 1 EACH TAB PO PRN (21:05)
[2020-04-04 07:49] LABS: Glucose,Whole Blood 136 mg/dL (75-99)
[2020-04-04] MEDS: PANTOPRAZOLE 40 MG TABLET PO SCH ×2 (07:54→18:39)
[2020-04-04] MEDS: PREGABALIN 75 MG CAP PO SCH ×2 (07:54→20:51)
[2020-04-04] MEDS: NICOTINE 14MG/24HR PATCH TRANSDERM SCH (07:54)
[2020-04-04] MEDS: DESVENLAFAXINE SUCCINATE 50 MG TAB.ER.24H PO SCH (07:55)
[2020-04-04] MEDS: INSULIN ASPART (NovoLOG) 100 UNIT/ML VIAL SQ SCH ×4 (08:05→20:16)
[2020-04-04] MEDS: BACITRACIN 500 UNIT/GM OINT 28.4 GM TUBE TOPICAL SCH ×2 (08:51→20:50)
[2020-04-04] MEDS: TRIAMCINOLONE ACET 0.1% OINTMENT 15 GM TUBE TOPICAL SCH ×2 (08:52→20:50)
[2020-04-04] MEDS: LORazepam 1 MG TAB PO PRN (10:45)
--- NOTE | 2020-04-04 10:46 | P.PN ---
Progress Note - Text Interval history: The patient is found in her room she follows me to an interview room. She reports that her mood is better today. She states she is looking forward to going home and using her new computer. She states a family member will assist her in setting it up. We discussed trying to get her into the DBT group at [facility]. We reviewed her psychotropic medications her questions were answered. She indicates that she is feeling safer. She is reporting no thoughts of self-harm today. Nursing reports the patient has made no statements regarding self-harm. Mental status exam: The patient is alert she is dressed in her own clothing hygiene grooming adequate. Eye contact is appropriate. She is wearing her eyeglasses. Speech is fluent spontaneous nonpressured. She reports that her mood is better today. She reports feeling less hopeless she is reporting no suicidal ideation intent or plan. She is reporting no homicidal ideation intent or plan. She demonstrates no evidence of psychosis hypomania or jillian. She reports no symptoms of psychosis. Insight and judgment improving. She remains oriented to person place and date. Plan: The patient will continue on the same psychotropic medication. We will monitor her for safety. She is encouraged to fully participate in the milieu. Vital signs reviewed. We will consider discharging her tomorrow if clinically appropriate. We will await input from [facility].
[2020-04-04] MEDS: traZODone HCL 50 MG TAB PO SCH (20:50)
[2020-04-04] MEDS: lamoTRIgine 100 MG TAB PO SCH (20:50)
[2020-04-04] MEDS: oxyCODONE-APAP 7.5-325MG 1 EACH TAB PO PRN (20:52)
[2020-04-05 00:45] VITALS: RESP 15
[2020-04-05 07:50] LABS: Glucose,Whole Blood 184 mg/dL (75-99)
[2020-04-05 08:03] LABS: Glucose,Whole Blood 179 mg/dL (75-99)
[2020-04-05] MEDS: INSULIN ASPART (NovoLOG) 100 UNIT/ML VIAL SQ SCH ×2 (08:04→12:44)
[2020-04-05] MEDS: PANTOPRAZOLE 40 MG TABLET PO SCH (08:53)
[2020-04-05] MEDS: NICOTINE 14MG/24HR PATCH TRANSDERM SCH (08:53)
[2020-04-05] MEDS: PREGABALIN 75 MG CAP PO SCH (08:54)
[2020-04-05] MEDS: BACITRACIN 500 UNIT/GM OINT 28.4 GM TUBE TOPICAL SCH (08:54)
[2020-04-05] MEDS: TRIAMCINOLONE ACET 0.1% OINTMENT 15 GM TUBE TOPICAL SCH (08:54)
[2020-04-05] MEDS: DESVENLAFAXINE SUCCINATE 50 MG TAB.ER.24H PO SCH (08:54)
[2020-04-05] MEDS: LORazepam 1 MG TAB PO PRN ×2 (08:58→08:59)
[2020-04-05] MEDS: oxyCODONE-APAP 7.5-325MG 1 EACH TAB PO PRN (08:58)
[2020-04-05 09:03] VITALS: BP 126/57; PULSE 79
--- NOTE | 2020-04-05 11:23 | P.DS ---
Providers Date of admission: 03/23/20 23:18 Expected date of discharge: 04/05/20 Attending physician: Ruddy Bhagat Consults: 03/23/20 23:19 Consult Physician Routine Consulting Provider: Charlie Esqueda Consult Reason/Comments: Medical H and P Do you want consulting provider notified?: Yes, Notify in am Primary care physician: Charlie Esqueda - Discharge Diagnosis(es) (1) MDD (major depressive disorder), recurrent severe, without psychosis Current Visit: No Status: Acute Priority: High (2) Panic attacks Current Visit: Yes Status: Acute Priority: Medium (3) Posttraumatic stress disorder Current Visit: Yes Status: Acute Priority: Medium (4) Borderline personality disorder Current Visit: No Status: Acute Priority: High Hospital Course: Brief summary of admission note: This patient is a 64-year-old female was admitted to the mental health unit or acute suicidal ideation with recent attempt. The patient states that just prior to this admission she had doubled up on her doses of medication. She reported she didn't care if she lived or any longer. She had been feeling increasingly depressed over the last several weeks. She described being tearful and a regular basis having low energy and low appetite with no interest in recreational activities. She described feeling hopeless and continued to have suicidal thoughts. She also described having panic attacks that were occurring more frequently. For full details please refer to my psychiatric evaluation. Summary of hospital course: The patient was admitted to the mental health unit voluntarily. We reviewed her presenting symptoms and treatment options. She did give me permission to speak with her outpatient psychiatrist Dr. Mullen. We decided we would continue her psychotropic medication but we will cross taper off of Cymbalta and initiate Pristiq. We did try a brief trial of Abilify as well but the patient reported intolerable side effects and that was quickly discontinued. The patient's selectively participated in group. Quickly became evident that she does have a borderline personality disorder. We spent time trying to cognitively restructure situations and utilize other CBT techniques. It was recommended that she participate in DBT if possible at [facility]. She was seen by internal medicine for routine history and physical exam. Social work met with the patient to complete a psychosocial assessment for discharge planning purposes. Over the past few days the patient is indicated that she is feeling hopeful again. Today she makes several future oriented statements. Mental status exam: The patient is alert she is dressed in her own clothing hygiene grooming adequate. Eye contact is appropriate speech is fluent spontaneous nonpressured. She reports her mood is better affect is euthymic she demonstrates an appropriate range of affect. She appropriately uses humor during the session. She is reporting no hopelessness thinking she is reporting no suicidal ideation intent or plan. No homicidal ideation intent or plan. She is endorsing no auditory or visual hallucinations or any specific delusions. There is no observed evidence of psychosis. She demonstrates no tangential thinking loose associations or flight of ideas she does not appear hypomanic or manic. Insight and judgment grossly intact, cognitively she is grossly intact. She demonstrates no verbal or physical aggressiveness she demonstrates no involuntary repetitive movements. Impressions 1. Major depressive disorder recurrent severe without psychosis, panic attacks, chronic posttraumatic stress disorder, or Personality disorder Plan: The patient will be discharged mental health unit today. She will return to her own home. Social work will arrange her follow up with [facility] mental health and hopefully DBT group. The patient will continue on Pristiq 50 mg daily, Lamictal 200 mg at bedtime, trazodone 150 mg at bedtime. She reports no use of alcohol or other substances. At this time there is no imminent safety risk she is appropriate for continued care as an outpatient. She is instructed to return to the hospital with any acute safety concerns. Patient Condition at Discharge: Stable Plan - Discharge Summary Discharge Rx Participant: No New Discharge Prescriptions: New Desvenlafaxine Succinate [Pristiq ER] 50 mg PO DAILY #30 tab.er.24h traZODone HCL 150 mg PO HS #30 tablet Continue Pregabalin [Lyrica] 150 mg PO BID Insulin Glargine,Hum.rec.anlog [Rosi Johnson] See Protocol SQ DAILY Omeprazole [PriLOSEC] 40 mg PO DAILY oxyCODONE-APAP 7.5-325MG [Percocet 7.5-325 mg] 1 tab PO TID PRN PRN Reason: Pain lamoTRIgine [LaMICtal] 200 mg PO HS #30 tablet Discontinued traZODone HCL [Desyrel] 200 mg PO HS #60 tab busPIRone HCL 15 mg PO BID DULoxetine HCL [Cymbalta] 60 mg PO BID Discharge Medication List Pregabalin [Lyrica] 150 mg PO BID 09/24/17 [History] Insulin Glargine,Hum.rec.anlog [Rosi Johnson] See Protocol SQ DAILY 03/23/20 [History] Omeprazole [PriLOSEC] 40 mg PO DAILY 03/23/20 [History] oxyCODONE-APAP 7.5-325MG [Percocet 7.5-325 mg] 1 tab PO TID PRN 03/23/20 [History] Desvenlafaxine Succinate [Pristiq ER] 50 mg PO DAILY #30 tab.er.24h 04/05/20 [Rx] lamoTRIgine [LaMICtal] 200 mg PO HS #30 tablet 04/05/20 [Rx] traZODone HCL 150 mg PO HS #30 tablet 04/05/20 [Rx] Follow up Appointment(s)/Referral(s): [facility] [Outside] - 04/05/20 12:00 pm (04-05-20 @ 12:00 with Crystal Coburn via phone call 04-08-20 @ 8:[address] Mullen at [facility] office via video phone ) Charlie Esqueda MD [Primary Care Provider] - 1-2 days Patient Instructions/Handouts: Depression (DC), Suicide Prevention (DC) Activity/Diet/Wound Care/Special Instructions: Activity and diet as tolerated. Avoid the use of street drugs and alcohol. Take all medications as prescribed. When you are in need of refills on your medications please contact your medical provider and/or outpatient psychiatrist to have this done. Please go to scheduled outpatient appointment for aftercare treatment. If symptoms return or become worse, call the crisis line at and/or go to the nearest emergency room for evaluation.
[2020-04-05 12:59] VITALS: TEMP 98.9
== END 2020-04-05 12:51 | disposition home or self-care (01) | DRG 885 ==
LOC: EC 19:44 → 3MHU 23:18
PROVIDERS: ADMIT Psychiatry & Neurology Psychiatry; ATTEND Psychiatry & Neurology Psychiatry
DX: F33.2 Major depressive disorder, recurrent severe without psychotic features (principal); R45.851 Suicidal ideations; F17.210 Nicotine dependence, cigarettes, uncomplicated; Z11.59 Encounter for screening for other viral diseases; E11.9 Type 2 diabetes mellitus without complications; F41.0 Panic disorder [episodic paroxysmal anxiety]; F43.10 Post-traumatic stress disorder, unspecified; F60.3 Borderline personality disorder; G43.909 Migraine, unspecified, not intractable, without status migrainosus; G89.4 Chronic pain syndrome; J44.9 Chronic obstructive pulmonary disease, unspecified; Z62.810 Personal history of physical and sexual abuse in childhood; Z79.899 Other long term (current) drug therapy; Z81.8 Family history of other mental and behavioral disorders; Z90.710 Acquired absence of both cervix and uterus; Z91.5 Personal history of self-harm; Z88.5 Allergy status to narcotic agent; Z88.0 Allergy status to penicillin; Z88.8 Allergy status to other drugs, medicaments and biological substances; Z60.2 Problems related to living alone
CPT/HCPCS: 36415; 80048; 80061; 80076; 80306; 80329; 81001; 82075; 83036; 83520; 84443; 85025; 87635; 99285

== ENCOUNTER 2020-04-16 10:30 | Emergency (ER) | payer MEDICARE, OTHER ==
[2020-04-16 10:47] VITALS: BP 103/63; PULSE 80; RESP 18; TEMP 98.4
--- NOTE | 2020-04-16 11:01 | ED ---
General Adult HPI - General Chief complaint: Extremity Injury, Upper Stated complaint: Shoulder Pain Time Seen by Provider: 04/16/20 10:40 Source: patient, RN notes reviewed, old records reviewed Mode of arrival: ambulatory Limitations: no limitations - History of Present Illness Initial comments: This is a 64-year-old female who presents emergency Department with a history of rotator cuff injury. Patient comes in today after having scooping ice cream yesterday is having quite a bit of pain in her right humerus. Patient states it starts just below shoulder and goes down her arm almost to her elbow. Patient states she has full range of motion but it does hurt to raise her arm in abduction. Patient denies any numbness or weakness. Patient denies any areas swelling. Patient is any ecchymosis. Patient denies any direct trauma. - Related Data Home Medications Medication Instructions Recorded Confirmed Pregabalin [Lyrica] 150 mg PO BID 09/24/17 03/23/20 Insulin Glargine,Hum.rec.anlog See Protocol SQ DAILY 03/23/20 03/23/20 [Rosi Johnson] Omeprazole [PriLOSEC] 40 mg PO DAILY 03/23/20 03/23/20 oxyCODONE-APAP 7.5-325MG [Percocet 1 tab PO TID PRN 03/23/20 03/23/20 7.5-325 mg] Previous Rx's Medication Instructions Recorded Desvenlafaxine Succinate [Pristiq 50 mg PO DAILY #30 tab.er.24h 04/05/20 ER] lamoTRIgine [LaMICtal] 200 mg PO HS #30 tablet 04/05/20 traZODone HCL 150 mg PO HS #30 tablet 04/05/20 Allergies Allergy/AdvReac Type Severity Reaction Status Date / Time ampicillin AdvReac Nausea & Verified 03/23/20 20:58 Vomiting & Diarrhea fluoxetine [From Prozac] AdvReac SUICIDAL Verified 03/23/20 20:58 morphine AdvReac Nausea & Verified 03/23/20 20:58 Vomiting Review of Systems ROS Statement: Those systems with pertinent positive or pertinent negative responses have been documented in the HPI. ROS Other: All systems not noted in ROS Statement are negative. Past Medical History Past Medical History: COPD, Diabetes Mellitus, GERD/Reflux Additional Past Medical History / Comment(s): ANX/DEPRESSION,NEUROPATHY, NECK PAIN, DIVERTICULAR DISEASE, emphysema History of Any Multi-Drug Resistant Organisms: None Reported Past Surgical History: Section, Cholecystectomy, Hysterectomy Additional Past Surgical History / Comment(s): Neck surgery, right knee surgery, rotator cuff repair right shoulder Past Anesthesia/Blood Transfusion Reactions: No Reported Reaction Additional Past Anesthesia/Blood Transfusion Reaction / Comment(s): past blood transfusion-no reaction. Past Psychological History: Anxiety, Depression Smoking Status: Current every day smoker Past Alcohol Use History: None Reported Past Drug Use History: None Reported General Exam - General Exam Comments Initial Comments: GENERAL Patient is well-developed and well-nourished. Patient is in mild distress. EYES Patient's pupils are equal and round. Extraocular motion is intact SKIN Unremarkable NEURO The patient is alert and oriented 3 PYSCH Patient has normal interpersonal interactions. MUSCULOSKELETAL Patient has full range of motion of the shoulder however has tenderness in the lateral aspect of the proximal humerus there is no swelling or ecchymosis Limitations: no limitations Course Vital Signs 04/16/20 10:41 Temperature 98.4 F Pulse Rate 80 Respiratory 18 Rate Blood Pressure 103/63 O2 Sat by Pulse 96 Oximetry Disposition Clinical Impression: Strain of shoulder Disposition: HOME SELF-CARE Condition: Good Instructions (If sedation given, give patient instructions): Rotator Cuff Injury (ED) Is patient prescribed a controlled substance at d/c from ED?: No Referrals: Charlie Esqueda MD [Primary Care Provider] - 1-2 days Dewey Juárez MD [STAFF PHYSICIAN] - 1-2 days Time of Disposition: 11:13
--- NOTE | 2020-04-16 11:15 | XR ---
EXAMINATION TYPE: XR humerus RT DATE OF EXAM: 04/16/2020 COMPARISON: 10/09/2019 HISTORY: Trauma, torn rotator cuff tear repair, felt a pop TECHNIQUE: 2 view right humerus FINDINGS: Humeral head articulates with the glenoid. Prior surgical screw within the humeral head is evident. Acromioclavicular joint is stable. No acute fractures are evident. IMPRESSION: 1. No acute osseous abnormality radiographically apparent.
== END 2020-04-16 11:30 | disposition home or self-care (01) ==
LOC: EC 10:30
DX: S46.911A Strain of unspecified muscle, fascia and tendon at shoulder and upper arm level, right arm, initial encounter (principal); K21.9 Gastro-esophageal reflux disease without esophagitis; E11.40 Type 2 diabetes mellitus with diabetic neuropathy, unspecified; F17.200 Nicotine dependence, unspecified, uncomplicated; Z79.4 Long term (current) use of insulin; Z79.899 Other long term (current) drug therapy; Z88.1 Allergy status to other antibiotic agents; Z88.5 Allergy status to narcotic agent; Z88.8 Allergy status to other drugs, medicaments and biological substances; X58.XXXA Exposure to other specified factors, initial encounter
CPT/HCPCS: 99284

== ENCOUNTER → 2020-06-13 | Outpatient (CLI) | payer MEDICARE, OTHER ==
--- NOTE | 2020-06-13 14:49 | XR ---
Left knee HISTORY: Osteoarthritis, knee pain 3 views of left knee There is chondrocalcinosis along the menisci. Mild joint space loss in the medial compartment, patell ofemoral joint. No evident joint effusion. Small ossific density at the superior margin of the patell a could represent a small loose body, there is an enthesophyte at the insertion of the patellar tendo n. 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 Additional findings above.
== END | disposition home or self-care (01) ==
LOC: RADXRMAIN 12:25
PROVIDERS: ATTEND Family Medicine
DX: M17.12 Unilateral primary osteoarthritis, left knee (principal)

== ENCOUNTER → 2020-06-20 | Outpatient (CLI) | payer MEDICARE, OTHER ==
--- NOTE | 2020-06-20 09:42 | CTL ---
EXAMINATION TYPE: CT Low Dose Lung DATE OF EXAM ORDERED: 06/20/2020 HISTORY: History of tobacco use. Lung cancer screening CT DLP: 77.[address] CTDI: 2.5 mGy Automated exposure control for dose reduction was used. SCREENING VISIT: First study COMPARISON: Chest x-ray January 04, 2020 TECHNIQUE: Low dose computed tomography scan was performed through the chest at 1 mm thick sections a nd reconstructed images in the coronal plane at [address] DIAGNOSTIC QUALITY: Satisfactory FINDINGS: LUNG NODULES: None. Few scattered micronodules all measuring 3 mm or smaller in size. LUNGS: COPD: Severity: Mild to moderate Fibrosis: Severity: None Lymph nodes: None Other findings: None BILATERAL PLEURAL SPACE: Effusion: None Calcification: None Thickening: None Pneumothorax: None HEART: Heart Size: Normal Coronary calcification: Moderate proximal LAD Pericardial effusion: None OTHER FINDINGS: Upper abdomen: Visualized liver isodense to spleen consistent with mild diffuse fatty infiltration Bony thorax: Moderate multilevel anterior and lateral spurring. Supraclavicular region: None Other: None IMPRESSION: No concerning greater than 4 mm pulmonary nodules. FOLLOW UP CT CHEST RECOMMENDATION: Annual low-dose lung screening CT. CT LUNG RAD: Lung-Rad 2 Benign Appearance or Behavior
== END | disposition home or self-care (01) ==
LOC: RADCTMAIN 08:46
PROVIDERS: ATTEND Family Medicine
DX: Z12.2 Encounter for screening for malignant neoplasm of respiratory organs (principal); F17.210 Nicotine dependence, cigarettes, uncomplicated

== ENCOUNTER → 2020-07-17 | Outpatient (CLI) | payer MEDICARE, OTHER ==
[~2020-07-17] MED LIST: REGADENOSON 0.4 MG/5 ML SYRINGE IV ONE
--- NOTE | 2020-07-17 12:15 | NM ---
EXAMINATION TYPE: NM stress lexiscan cardiolite DATE OF EXAM: 07/17/2020 COMPARISON: NONE HISTORY: I25.10 Coronary arterial sclerosis TECHNIQUE: After the intravenous administration of 9.19 mCi Tc 99m Sestamibi - Cardiolite resting SP ECT images acquired 45 minutes post injection. The patient received 0.4mg Lexiscan, 24.7 mCi Tc 99m Sestamibi - Stress images obtained [address] injection FINDINGS: Review of stress and rest SPECT images demonstrates decreased perfusion on the stress images involvin g the anterior wall and the septum. Stress-induced ischemia is not excluded. No fixed defects seen. G ated analysis shows normal wall motion with an estimated left ventricular ejection fraction of 61 %. IMPRESSION: I cannot exclude stress-induced ischemia involving the cardiac septum and anterior wall.
--- NOTE | 2020-07-17 14:28 | EST ---
EXERCISE STRESS DATE OF SERVICE: July 17, 2020. AGE: 64 SEX: Fe HT: 63" WT: 153 lbs PROTOCOL: Lexiscan Cardiolite STAGE: DURATION OF EXERCISE: HEART RATE REST: 61 BLOOD PRESSURE REST: 106/69 MAXIMUM HEART RATE ACHIEVED: 79 MAXIMUM BLOOD PRESSURE: 108/49 85% MPHR: 131 100% MPHR: 154 METS: INDICATIONS: STRESS DATA: Heart rate 61, pressure is 106/69 mmHg. Baseline EKG showed sinus mechanism. 0.4 mg of Lexiscan given over 15 seconds per protocol. Max heart rate was 79 beats per minute and maximum pressure was 108/49 mmHg. Clinically, the patient did not have any symptoms and the EKG did not show any significant ST or T-wave abnormalities concerning for ischemia. CONCLUSION: 1. Nondiagnostic electrocardiogram stress testing in response to Lexiscan. 2. Please follow up on the Cardiolite portion on a separate report from Radiology Department. MMODL / IJN: [id number] /
== END | disposition home or self-care (01) ==
LOC: RADNMMAIN 08:40
PROVIDERS: ATTEND Family Medicine
DX: I25.10 Atherosclerotic heart disease of native coronary artery without angina pectoris (principal)
CPT/HCPCS: 93017; 78452; A9500; J2785

== ENCOUNTER 2020-08-29 13:02 | Observation (INO) | payer MEDICARE ==
[2020-08-29 14:23] LABS: Glucose,Whole Blood 122 mg/dL (75-99)
[2020-08-29] MEDS ORDERED: BIVALIRUDIN BOLUS 250 MG/50 ML IV ONE ×2 (15:10→17:10)
[2020-08-29] MEDS ORDERED: SODIUM CHLORIDE 0.9% 1,000 ML IV ONE (15:36)
[2020-08-29] MEDS ORDERED: BIVALIRUDIN 250 MG in SODIUM CHLORIDE 0.9% 50 ML IV ONE (17:12)
[2020-08-29] MEDS ORDERED: MIDAZOLAM 2 MG/2 ML VIAL IV ONE (17:12)
[2020-08-29] MEDS ORDERED: LIDOCAINE 1% INJ 10MG/ML (20 ML MDV) SQ ONE (17:12)
[2020-08-29] MEDS ORDERED: CLOPIDOGREL 75 MG TAB ONE (17:13)
[2020-08-29] MEDS ORDERED: CLOPIDOGREL 75 MG TAB PO ONE (17:15)
[2020-08-29] MEDS ORDERED: niCARdipine 25 MG/10 ML VIAL ONE (17:20)
[2020-08-29] MEDS ORDERED: fentaNYL (PF) 50 MCG/ML 2 ML AMP ONE (17:36)
[2020-08-29] MEDS ORDERED: NITROGLYCERIN 1000MCG/10ML SYRINGE INTRACORON ONE (17:38)
[2020-08-29] MEDS ORDERED: fentaNYL (PF) 50 MCG/ML 2 ML AMP IV ONE (17:38)
[2020-08-29] MEDS ORDERED: niCARdipine Syringe (1,000 mcg/10 mL) INTRACORON ONE (17:38)
[2020-08-29] MEDS ORDERED: IOPAMIDOL-370 125ML BTL INJ ONE (17:48)
[2020-08-29] MEDS ORDERED: MAG HYDROX/AL HYDROX/SIMETH 30 ML CUP PO PRN (18:14)
[2020-08-29] MEDS ORDERED: NITROGLYCERIN SL TABS 0.4 MG TAB SUBLINGUAL PRN (18:14)
[2020-08-29] MEDS ORDERED: RX INFO: IV CONTRAST WAS GIVEN 1 EACH MISC MISCELLANE PRN (18:14)
[2020-08-29] MEDS ORDERED: ZOLPIDEM 5 MG TAB PO PRN (18:14)
[2020-08-29] MEDS ORDERED: ATROPINE SULFATE 0.1 MG/ML 10ML SYRINGE IV PRN (18:14)
[2020-08-29] MEDS ORDERED: SODIUM CHLORIDE 0.9% 1,000 ML IV SCH (18:15)
[2020-08-29] MEDS: oxyCODONE-APAP 7.5-325MG 1 EACH TAB PO PRN (20:09)
[2020-08-29] MEDS: PREGABALIN 75 MG CAP PO SCH (20:10)
[2020-08-29 20:16] LABS: Glucose,Whole Blood 145 mg/dL (75-99)
[2020-08-29] MEDS: INSULIN ASPART (NovoLOG) 100 UNIT/ML VIAL SQ SCH (20:16)
[2020-08-29] MEDS ORDERED: traZODone HCL 50 MG TAB PO SCH (21:00)
[2020-08-29] MEDS ORDERED: ATORVASTATIN 80 MG TAB PO SCH (21:00)
[2020-08-29] MEDS ORDERED: lamoTRIgine 100 MG TAB PO SCH (21:00)
[2020-08-30] MEDS: oxyCODONE-APAP 7.5-325MG 1 EACH TAB PO PRN (03:42)
--- NOTE | 2020-08-30 04:31 | PTCA ---
PERCUTANEOUSTRANS CORORONARY ANGIOGRAPHY PERCUTANEOUS CORONARY INTERVENTION: DATE OF SERVICE: August 29, 2020 PERFORMING PHYSICIAN: Biju Park MD. PROCEDURE PERFORMED: 1. Successful stenting of the mid left anterior descending artery using 2.75 x 23 mm Xience FELICITAS with an excellent angiographic result and reduction of stenosis from 90% to 0%. 2. Intravascular ultrasound (IVUS) of the left anterior descending artery. INDICATION: This is a 64-year-old female patient with diabetes and hypertension and dyslipidemia who was experiencing symptoms of shortness of breath with exertion. She underwent myocardial perfusion imaging stress test and that revealed anteroseptal ischemia. Because of that, heart catheterization was advised. APPROACH: Right common femoral artery. COMPLICATION: None. LEVEL OF SEDATION: Moderate with sedation length of 44 minutes. PROCEDURE DESCRIPTION: Please refer to diagnostic heart catheterization that was performed at [facility] earlier today. Anticoagulation was initiated using Angiomax. Subsequently I did engage the left main using an XP35 LAD guide. I did wire the LAD using a run-through wire. Predilatation was performed using 2.5 x 12 mm balloon which was inflated under 14 atmospheres for 20 seconds. Subsequently I noticed there was dissection extended just proximal to the balloon dilatation segment. Quickly, I deployed 2.75 x 23 mm Xience drug-eluting stent where the stent was positioned under fluoroscopy guidance and deployed under 14 atmospheres for 20 seconds. Subsequent angiogram showed that the stent possibly in the midportion was not well apposed, so I post dilated the stent using 3.0 x 15 mm NC balloon which was inflated under 16 atmospheres x2. I did after that intravascular ultrasound, IVUS, which revealed that the stent in the mid portion probably was not well apposed again and because of that I did postdilatation again using this time 3.25 mm NC balloon. The following angiogram showed excellent angiographic results and the procedure was completed without any complication and without any flow-limiting dissection. POSTPROCEDURE MANAGEMENT: 1. Dual anti-platelet therapy. 2. Risk factor modifications. 3. Follow up with the patient. MMODL / IJN: [id number] /
--- NOTE | 2020-08-30 04:58 | LTR ---
August 29, 2020. Re: Lydna Leyva. Dear Dr. Esqueda: Ms. Lynda Leyva underwent today successful stenting of the mid left anterior descending artery. As you know, she underwent a heart catheterization earlier today at [facility] and that revealed critical disease involving the mid LAD. I want to thank you for allowing me to participate in her care and please do not hesitate to call if you have any question or concern. Sincerely, MD ROXANNE Broussard / BAUDILIO: [id number] /
[2020-08-30 06:02] LABS: Glucose,Whole Blood 110 mg/dL (75-99)
[2020-08-30] MEDS: INSULIN ASPART (NovoLOG) 100 UNIT/ML VIAL SQ SCH (06:34)
[2020-08-30 06:53] LABS: Anisocytosis Slight; Basophils % (A) 0 %; Eosinophils # (A) 0.2 k/uL (0-0.7); Eosinophils % (A) 2 %; HCT 36.5 % (34.0-46.0); HGB 11.6 gm/dL (11.4-16.0); Lymphocytes # (A) 2.7 k/uL (1.0-4.8); Lymphocytes % (A) 31 %; MCH 26.4 pg (25.0-35.0); MCHC 31.9 g/dL (31.0-37.0); Mean Platelet Volume 7.8; Monocytes # (A) 0.5 k/uL (0-1.0); Monocytes % (A) 6 %; Neutrophils # (A) 5.2 k/uL (1.3-7.7); Neutrophils % (A) 60 %; Platelet Count 200 k/uL (150-450); RBC 4.41 m/uL (3.80-5.40); RDW 17.3 % (11.5-15.5); WBC 8.7 k/uL (3.8-10.6)
[2020-08-30 06:59] LABS: African American GFR (CKD) >90 (>60 ml/min/1.73 sqM); Anion Gap 3 mmol/L; Blood Urea Nitrogen 14 mg/dL (7-17); Calcium 8.5 mg/dL (8.4-10.2); Carbon Dioxide 29 mmol/L (22-30); Chloride 105 mmol/L (98-107); Glucose 107 mg/dL (74-99); Non-African American GFR(CKD) >90 (>60 ml/min/1.73 sqM); Potassium 3.9 mmol/L (3.5-5.1); Sodium 137 mmol/L (137-145)
[2020-08-30] MEDS ORDERED: PANTOPRAZOLE 40 MG TABLET PO SCH (07:30)
[2020-08-30 08:31] VITALS: BP 117/59; PULSE 67; RESP 18; TEMP 97.4
[2020-08-30] MEDS: PREGABALIN 75 MG CAP PO SCH (08:36)
[2020-08-30] MEDS ORDERED: ASPIRIN 325 MG TAB PO SCH (09:00)
[2020-08-30] MEDS ORDERED: DESVENLAFAXINE SUCCINATE 50 MG TAB.ER.24H PO SCH (09:00)
[2020-08-30] MEDS ORDERED: CLOPIDOGREL 75 MG TAB PO SCH (09:00)
--- NOTE | 2020-08-30 20:14 | DS ---
DISCHARGE SUMMARY ADMISSION DATE: August 29, 2020 DISCHARGE DATE: August 30, 2020 BRIEF HISTORY: This is a 64-year-old female patient who sees Dr. Esqueda in the office as an outpatient who was experiencing symptoms of shortness of breath with exertion. She is diabetic and also she does have hypertension and dyslipidemia. She underwent a myocardial perfusion imaging stress test in the hospital and that revealed anteroseptal ischemia. Subsequently, the patient underwent a heart catheterization at [facility] and that revealed critical disease involving the proximal left anterior descending artery along with intermediate to severe disease involving the RCA and LCX. She was transferred to [facility] yesterday where she underwent successful stenting of the proximal left anterior descending artery with a good angiographic result from right groin approach. The patient was seen this morning. The right groin is soft and nontender and without any discrete hematomas. She is asymptomatic from a cardiovascular standpoint of view. The blood work was reviewed as well as her vital signs and everything seems to be stable. She was advised and informed about the importance of taking dual anti-platelet therapy and the consequences if she is not taking them. I am going to send the patient home to be discharged later on today and follow up with me in the office next week. MMODL / IJN: [id number] /
== END 2020-08-30 12:33 | disposition home or self-care (01) ==
LOC: 3NCARDOBS 14:13
PROVIDERS: ADMIT Internal Medicine Interventional Cardiology; ATTEND Family Medicine
DX: I25.10 Atherosclerotic heart disease of native coronary artery without angina pectoris (principal); R94.39 Abnormal result of other cardiovascular function study; R06.02 Shortness of breath; E11.9 Type 2 diabetes mellitus without complications; I10 Essential (primary) hypertension; E78.5 Hyperlipidemia, unspecified; F17.210 Nicotine dependence, cigarettes, uncomplicated
CPT/HCPCS: 93005; 92978; 80048; 85025; G0379; G0378 ×2; C9600; C1760; C1769 ×3; C1725 ×3; C1887; C1894; C1753; C1874; J2250; J2001; J3010; J0583; Q9967

== ENCOUNTER 2021-02-20 11:38 | Emergency (ER) | payer MEDICARE, OTHER ==
[2021-02-20 11:52] VITALS: BP 116/71; PULSE 79; RESP 18; TEMP 98.8
--- NOTE | 2021-02-20 12:34 | ED ---
Neck Injury/Pain HPI - General Chief Complaint: Neck Pain/Injury Stated Complaint: Neck Pain Time Seen by Provider: 02/20/21 12:17 Mode of arrival: ambulatory Limitations: no limitations - History of Present Illness Initial Comments: 65-year-old female presenting today for chief complaint of neck pain. Patient states that she is out of her pain medications of Percocet. Patient states that she Mr. Villanueva last week with her neurologist and is not scheduled next Wednesday and cannot get in over the phone refill. She was told to come to the ER. Patient denies any new or changes in pain denies any weakness or sensation deficits. Patient simply wanted medication refill. Denies fevers, fall, new trauma. Denies headache, anterior neck pain. Patient has no additional complai nts. Upon arrival she appears well nontoxic no distress. - Related Data Home Medications Medication Instructions Recorded Confirmed Pregabalin [Lyrica] 150 mg PO BID 09/24/17 08/30/20 Insulin Glargine,Hum.rec.anlog See Protocol SQ DAILY 03/23/20 08/30/20 [Toumatthewo Sotero Johnson] oxyCODONE-APAP 7.5-325MG [Percocet 1 tab PO TID PRN 03/23/20 08/30/20 7.5-325 mg] Aspirin EC [Ecotrin Low Dose] 81 mg PO DAILY 08/29/20 08/30/20 Atorvastatin [Lipitor] 40 mg PO HS 08/29/20 08/30/20 Butalb/APAP/Caff 50-325-40Mg 1 tab PO Q8H PRN 08/29/20 08/30/20 [Fioricet 50-325-40] Calcipotriene [Dovonex] 1 applic PO BID PRN 08/29/20 08/30/20 Levothyroxine Sodium [Synthroid] 50 mcg PO DAILY 08/29/20 08/30/20 Metoprolol Succinate [Toprol XL] 25 mg PO DAILY 08/29/20 08/30/20 Mirtazapine [Remeron] 15 mg PO HS 08/29/20 08/30/20 traZODone HCL [Desyrel] 100 mg PO HS 08/29/20 08/30/20 Omeprazole 20 mg PO DAILY 08/30/20 08/30/20 Previous Rx's Medication Instructions Recorded Desvenlafaxine Succinate [Pristiq 50 mg PO DAILY #30 tab.er.24h 04/05/20 ER] lamoTRIgine [LaMICtal] 200 mg PO HS #30 tablet 04/05/20 Clopidogrel [Plavix] 75 mg PO DAILY #90 tab 08/30/20 oxyCODONE HCL/ACETAMINOPHEN 1 tab PO Q4HR PRN 3 Days #18 tab 02/20/21 [Percocet 7.5-325 mg] Allergies Allergy/AdvReac Type Severity Reaction Status Date / Time ampicillin AdvReac Nausea & Verified 02/20/21 11:53 Vomiting & Diarrhea fluoxetine [From Prozac] AdvReac SUICIDAL Verified 02/20/21 11:53 morphine AdvReac Nausea & Verified 02/20/21 11:53 Vomiting Review of Systems ROS Statement: Those systems with pertinent positive or pertinent negative responses have been documented in the HPI. ROS Other: All systems not noted in ROS Statement are negative. Past Medical History Past Medical History: COPD, Diabetes Mellitus, GERD/Reflux Additional Past Medical History / Comment(s): ANX/DEPRESSION,NEUROPATHY, NECK PAIN, DIVERTICULAR DISEASE, emphysema History of Any Multi-Drug Resistant Organisms: None Reported Past Surgical History: Section, Cholecystectomy, Hysterectomy Additional Past Surgical History / Comment(s): Neck surgery, right knee surgery, rotator cuff repair right shoulder Past Anesthesia/Blood Transfusion Reactions: No Reported Reaction Additional Past Anesthesia/Blood Transfusion Reaction / Comment(s): past blood transfusion-no reaction. Past Psychological History: Anxiety, Depression Smoking Status: Current every day smoker Past Alcohol Use History: None Reported Past Drug Use History: None Reported General Exam - General Exam Comments Initial Comments: General: The patient is awake and alert, in no distress Eye: +3 mm pupils are equal, round and reactive to light, extra-ocular movements are intact. No nystagmus. There is normal conjunctiva bilaterally. No signs of icterus. Ears, nose, mouth and throat: There are moist mucous membranes and no oral lesions. Neck: The neck is supple, there is no tenderness or JVD. Cardiovascular: There is a regular rate and rhythm. No murmur, rub or gallop is appreciated. Respiratory: Lungs are clear to auscultation, respirations are non-labored, breath sounds are equal. No wheezes, stridor, rales, or rhonchi. Gastrointestinal: Soft, non-distended, non-tender abdomen without masses or organomegaly noted. There is no rebound or guarding present. Musculoskeletal: Normal ROM, no tenderness. Strength 5/5 of the UE and LE b/l. Sensation intact. Radial pulses equal bilaterally 2+. Neurological: A&O x 3. CN II-XII intact grossly, There are no obvious motor or sensory deficits. Coordination appears grossly intact. Speech is normal. Skin: Skin is warm and dry and no rashes or lesions are noted. Psychiatric: Cooperative, appropriate mood & affect, normal judgment. Limitations: no limitations Course Vital Signs 02/20/21 11:51 Temperature 98.8 F Pulse Rate 79 Respiratory 18 Rate Blood Pressure 116/71 O2 Sat by Pulse 99 Oximetry Medical Decision Making - Medical Decision Making 65 yo female presenting for cc of neck pain. no hx of weakness, sensation deficits. patient requesting pain medications refill. refilled today, discussed importance of same provider. discussed opioid abuse. Disposition Clinical Impression: Chronic neck pain, Medication refill Disposition: HOME SELF-CARE Condition: Good Additional Instructions: Please use medication as discussed. Please follow-up with family doctor in the next 2 days. Further pain medication refills will need to be by neurologist. Please return to emergency room if the symptoms increase or worsen or for any other concerns. Prescriptions: oxyCODONE HCL/ACETAMINOPHEN [Percocet 7.5-325 mg] 1 tab PO Q4HR PRN 3 Days #18 tab PRN Reason: Pain Is patient prescribed a controlled substance at d/c from ED?: Yes When asked, does pt state using other controlled substances?: Yes If prescribed controlled substance>3 days was MAPS reviewed?: Prescribed <3 Days If opioid is for acute pain is fill amount 7 days or less?: Yes If Rx opioid, was Start Talking consent form obtained?: Yes Referrals: Charlie Esqueda MD [Primary Care Provider] - 1-2 days Time of Disposition: 12:33
== END 2021-02-20 12:55 | disposition home or self-care (01) ==
LOC: EC 11:38
DX: M54.2 Cervicalgia (principal); Z76.0 Encounter for issue of repeat prescription; J44.9 Chronic obstructive pulmonary disease, unspecified; E11.9 Type 2 diabetes mellitus without complications; K21.9 Gastro-esophageal reflux disease without esophagitis; F32.9 Major depressive disorder, single episode, unspecified; F41.9 Anxiety disorder, unspecified; F17.200 Nicotine dependence, unspecified, uncomplicated
CPT/HCPCS: 99283

== ENCOUNTER 2021-05-22 19:01 | Emergency (ER) | payer MEDICARE, OTHER ==
[2021-05-22 19:38] VITALS: RESP 18; TEMP 97.9
[2021-05-22] MEDS ORDERED: GELATIN SPONGE,ABSORB (SMALL) 1 EACH SPONGE TOPICAL STA (20:26)
[2021-05-22] MEDS ORDERED: DIPH,PERTUS(ACELL)TETVAC-LF 0.5 ML VIAL IM ONE (20:27)
--- NOTE | 2021-05-22 20:34 | ED ---
Wound/Laceration HPI - General Chief Complaint: Wound/Laceration Stated Complaint: Finger Lac Time Seen by Provider: 05/22/21 20:12 Source: patient, RN notes reviewed Mode of arrival: ambulatory Limitations: no limitations - History of Present Illness Initial Comments: Patient is a 65-year-old female that presents to the emergency department complaining of a left pinky finger with scissors. She notes she accidentally caught the tip of her finger with the scissors while cutting stuff. She notes that she's tried using Band-Aids at home but it just keeps bleeding. She denied any pain at this point she is noted that she wanted help to get it to stop bleeding. She does not know when her last tetanus vaccination was. She denied any other issues or complaints at this time. She denied any weakness numbness tingling decreased range of motion or sensation in her left fifth digit. - Related Data Home Medications Medication Instructions Recorded Confirmed Pregabalin [Lyrica] 150 mg PO BID 09/24/17 08/30/20 Insulin Glargine,Hum.rec.anlog See Protocol SQ DAILY 03/23/20 08/30/20 [Toujeo Max Solostar] oxyCODONE-APAP 7.5-325MG [Percocet 1 tab PO TID PRN 03/23/20 08/30/20 7.5-325 mg] Aspirin EC [Ecotrin Low Dose] 81 mg PO DAILY 08/29/20 08/30/20 Atorvastatin [Lipitor] 40 mg PO HS 08/29/20 08/30/20 Butalb/APAP/Caff 50-325-40Mg 1 tab PO Q8H PRN 08/29/20 08/30/20 [Fioricet 50-325-40] Calcipotriene [Dovonex] 1 applic PO BID PRN 08/29/20 08/30/20 Levothyroxine Sodium [Synthroid] 50 mcg PO DAILY 08/29/20 08/30/20 Metoprolol Succinate [Toprol XL] 25 mg PO DAILY 08/29/20 08/30/20 Mirtazapine [Remeron] 15 mg PO HS 08/29/20 08/30/20 traZODone HCL [Desyrel] 100 mg PO HS 08/29/20 08/30/20 Omeprazole 20 mg PO DAILY 08/30/20 08/30/20 Previous Rx's Medication Instructions Recorded Desvenlafaxine Succinate [Pristiq 50 mg PO DAILY #30 tab.er.24h 04/05/20 ER] lamoTRIgine [LaMICtal] 200 mg PO HS #30 tablet 04/05/20 Clopidogrel [Plavix] 75 mg PO DAILY #90 tab 08/30/20 oxyCODONE HCL/ACETAMINOPHEN 1 tab PO Q4HR PRN 3 Days #18 tab 02/20/21 [Percocet 7.5-325 mg] Allergies Allergy/AdvReac Type Severity Reaction Status Date / Time ampicillin AdvReac Nausea & Verified 05/22/21 19:38 Vomiting & Diarrhea fluoxetine [From Prozac] AdvReac SUICIDAL Verified 05/22/21 19:38 morphine AdvReac Nausea & Verified 05/22/21 19:38 Vomiting Review of Systems ROS Statement: Those systems with pertinent positive or pertinent negative responses have been documented in the HPI. ROS Other: All systems not noted in ROS Statement are negative. Past Medical History Past Medical History: COPD, Diabetes Mellitus, GERD/Reflux Additional Past Medical History / Comment(s): ANX/DEPRESSION,NEUROPATHY, NECK PAIN, DIVERTICULAR DISEASE, emphysema History of Any Multi-Drug Resistant Organisms: None Reported Past Surgical History: Section, Cholecystectomy, Hysterectomy Additional Past Surgical History / Comment(s): Neck surgery, right knee surgery, rotator cuff repair right shoulder Past Anesthesia/Blood Transfusion Reactions: No Reported Reaction Additional Past Anesthesia/Blood Transfusion Reaction / Comment(s): past blood t ransfusion-no reaction. Past Psychological History: Anxiety, Depression Smoking Status: Current every day smoker Past Alcohol Use History: None Reported Past Drug Use History: None Reported General Exam Limitations: no limitations General appearance: alert, in no apparent distress Head exam: Present: atraumatic, normocephalic, normal inspection Eye exam: Present: normal appearance, PERRL, EOMI. Absent: scleral icterus, conjunctival injection, periorbital swelling Neck exam: Present: normal inspection Respiratory exam: Present: normal lung sounds bilaterally. Absent: respiratory distress, wheezes, rales, rhonchi, stridor Cardiovascular Exam: Present: regular rate, normal rhythm, normal heart sounds. Absent: systolic murmur, diastolic murmur, rubs, gallop, clicks Left Hand Wrist exam: Present: laceration (To the lateral distal aspect of the fifth digit measuring approximately 0.3 cm, no sutures needed) Neurological exam: Present: alert, oriented X3 Psychiatric exam: Present: normal affect, normal mood Skin exam: Present: warm, dry, intact, normal color. Absent: rash Course Vital Signs 05/22/21 19:36 Temperature 97.9 F Pulse Rate 80 Respiratory 18 Rate Blood Pressure 125/56 O2 Sat by Pulse 96 Oximetry Medical Decision Making - Medical Decision Making 65-year-old female with a small laceration to her left fifth digit at the distal end on the lateral aspect. Gelfoam and wound care ordered. Laceration was not large enough to need stitches as it was less than half centimeter. Tetanus vaccination ordered. Patient is agreeable to this treatment plan and discharge home. Case discussed with Dr. Hardy, patient can discharge home with follow-up to primary care. Disposition Clinical Impression: Laceration Disposition: HOME SELF-CARE Condition: Stable Instructions (If sedation given, give patient instructions): Laceration (ED) Additional Instructions: Please return to the Emergency Department if symptoms worsen or any other concerns. Keep pressure on left pinky finger to help stop bleeding. Keep it clean with warm water gentle soap. Follow-up primary care as needed. Is patient prescribed a controlled substance at d/c from ED?: No Referrals: Charlie Esqueda MD [Primary Care Provider] - 1-2 days Time of Disposition: 20:47
[2021-05-22 21:17] VITALS: BP 127/84; PULSE 78
== END 2021-05-22 21:17 | disposition home or self-care (01) ==
LOC: EC 19:01
DX: S61.217A Laceration without foreign body of left little finger without damage to nail, initial encounter (principal); E11.9 Type 2 diabetes mellitus without complications; F32.9 Major depressive disorder, single episode, unspecified; J44.9 Chronic obstructive pulmonary disease, unspecified; K21.9 Gastro-esophageal reflux disease without esophagitis; F17.200 Nicotine dependence, unspecified, uncomplicated; Z90.49 Acquired absence of other specified parts of digestive tract; Z90.710 Acquired absence of both cervix and uterus; Z79.4 Long term (current) use of insulin; Z79.82 Long term (current) use of aspirin; W26.8XXA Contact with other sharp object(s), not elsewhere classified, initial encounter; Z23 Encounter for immunization
CPT/HCPCS: 90471; 90715; 99283

== ENCOUNTER → 2021-10-16 | Outpatient (CLI) | payer MEDICARE, OTHER ==
--- NOTE | 2021-10-20 09:39 | CTL ---
EXAMINATION TYPE: CT Low Dose Lung DATE OF EXAM ORDERED: 10/16/2021 HISTORY: Personal history of tobacco use. Lung cancer screening CT DLP: 74.[address] CTDI: 2.2 mGy Automated exposure control for dose reduction was used. SCREENING VISIT: Yes COMPARISON: 06/20/2020 TECHNIQUE: Low dose computed tomography scan was performed through the chest at 1 mm thick sections a nd reconstructed images in multiple planes at 1 mm and [address] DIAGNOSTIC QUALITY: Satisfactory FINDINGS: LUNG NODULES: Present, detailed below: There are acute appearing multifocal nodular opacities with mild surrounding groundglass of the left upper lobe (4:112) and the left lower lobe (4:145). Additional scattered 2 to 3 mm pulmonary nodules are seen. LUNGS: COPD: Severity: Mild Fibrosis: Severity: None Lymph nodes: None Other findings: None RIGHT PLEURAL SPACE: Effusion: None Calcification: None Thickening: None Pneumothorax: None LEFT PLEURAL SPACE: Effusion: None Calcification: None Thickening: None Pneumothorax: None HEART: Heart Size: Normal Coronary calcification: Moderate, worst at the proximal LAD Pericardial effusion: None OTHER FINDINGS: Upper abdomen: Liver is normal in attenuation. Bony thorax: Incompletely visualized cervical spine fixation hardware. Degenerative changes of the th oracic spine. Supraclavicular region: None Other: None IMPRESSION: Acute appearing multifocal nodular opacities with mild surrounding groundglass. Findings likely represent acute infectious or inflammatory etiology. Short-term follow-up CT within 3 months r ecommended for resolution. CT LUNG RAD AND CT CHEST RECOMMENDATION: Lung-Rad 3 Probably Benign: 3 month follow-up chest CT. S Modifier (other clinically significant findings): S - calcified coronary artery disease.
== END | disposition home or self-care (01) ==
LOC: RADCTMAIN 16:41
PROVIDERS: ATTEND Family Medicine
DX: Z12.2 Encounter for screening for malignant neoplasm of respiratory organs (principal); R91.8 Other nonspecific abnormal finding of lung field; Z87.891 Personal history of nicotine dependence
CPT/HCPCS: 71271

== ENCOUNTER → 2022-07-14 | Outpatient (CLI) | payer MEDICARE, OTHER ==
--- NOTE | 2022-07-17 09:03 | US ---
EXAMINATION TYPE: US arterial LE single level DATE OF EXAM: 07/14/2022 12:41 PM CLINICAL HISTORY: I73.9 PAD. Bilateral leg heaviness. History of diabetes. Doppler Waveforms: Right: Biphasic Left: Biphasic Pulse Volume Recording: Pressure Gradients: Ankle-Brachial Indices: Right: 1.27 Left: 1.22 Toe Brachial Indices: Right: 0.92 Left: 0.98 IMPRESSION: Normal FINSESE and TBI values.
== END | disposition home or self-care (01) ==
LOC: RADUSWWP 11:42
PROVIDERS: ATTEND Family Medicine
DX: I73.9 Peripheral vascular disease, unspecified (principal)
CPT/HCPCS: 93922

== ENCOUNTER 2022-08-10 20:42 | Emergency (ER) | payer MEDICARE, OTHER ==
--- NOTE | 2022-08-10 21:13 | CT ---
EXAMINATION TYPE: CT brain wo con DATE OF EXAM: 08/10/2022 COMPARISON: None available HISTORY: vision changes and left arm numbness CT DLP: 1133.4 mGycm Automated exposure control for dose reduction was used. Images obtained of the brain with no contrast. There is slight enlargement of the ventricles. There is no mass effect or midline shift. No sign of i ntracranial hemorrhage. Calvarium is intact. Skull base is intact. There is normal aeration of the ma stoid sinuses. IMPRESSION: Mild hydrocephalus. I do not see evidence for obstruction. No acute intracranial abnormality.
--- NOTE | 2022-08-10 21:16 | XR ---
EXAMINATION TYPE: XR chest 2V DATE OF EXAM: 08/10/2022 COMPARISON: None available HISTORY: Altered mental status TECHNIQUE: Single view FINDINGS: There are some reticular nodular mild infiltrate left upper lobe. The other lung escobar are clear. There are no hilar masses. Heart size is normal. There is cervical spine fusion surgery. No p leural effusion. Bony thorax is intact. There is pin in the right humeral head. IMPRESSION: Mild left upper lobe pneumonia. Normal heart.
[2022-08-10 22:51] LABS: Partial Thromboplastin Time 24.1 sec (22.0-30.0); Prothrombin Time 10.9 sec (9.0-12.0)
[2022-08-10 22:55] LABS: ALT 11 U/L (4-34); AST 18 U/L (14-36); African American GFR (CKD) 72 (>60 ml/min/1.73 sqM); Albumin 4.3 g/dL (3.5-5.0); Alkaline Phosphatase 53 U/L (38-126); Anion Gap 14 mmol/L; Blood Urea Nitrogen 24 mg/dL (7-17); C Reactive Protein <0.5 mg/dL (<1.0); Calcium 8.9 mg/dL (8.4-10.2); Carbon Dioxide 22 mmol/L (22-30); Chloride 102 mmol/L (98-107); Glucose 161 mg/dL (74-99); Non-African American GFR(CKD) 63 (>60 ml/min/1.73 sqM); Potassium 4.3 mmol/L (3.5-5.1); Sodium 138 mmol/L (137-145); Total Bilirubin 0.1 mg/dL (0.2-1.3); Total Protein 6.6 g/dL (6.3-8.2)
[2022-08-10 23:03] LABS: Anisocytosis Slight; Basophils % (A) 0 %; Eosinophils # (A) 0.1 k/uL (0-0.7); Eosinophils % (A) 2 %; Hypochromasia Marked; Lymphocytes % (A) 15 %; MCH 16.6 pg (25.0-35.0); MCHC 26.4 g/dL (31.0-37.0); MCV 62.9 fL (80.0-100.0); Mean Platelet Volume 9.4; Microcytosis Marked; Monocytes # (A) 0.4 k/uL (0-1.0); Monocytes % (A) 5 %; Neutrophils # (A) 5.2 k/uL (1.3-7.7); Neutrophils % (A) 76 %; Platelet Count 295 k/uL (150-450); Poikilocytosis Moderate; RBC 3.08 m/uL (3.80-5.40); RDW 18.4 % (11.5-15.5); WBC 6.9 k/uL (3.8-10.6)
--- NOTE | 2022-08-10 23:10 | ED ---
General Adult HPI - General Chief complaint: Neuro Symptoms/Deficit Stated complaint: Possible stroke,SOB,Doctor sent Time Seen by Provider: 08/10/22 22:15 Source: patient Mode of arrival: ambulatory Limitations: no limitations - History of Present Illness Initial comments: This patient is a 66-year-old woman who presents here to have further evaluation after she had been seen in the ophthalmology clinic. The patient had gone to the ophthalmology clinic to be seen about vision changes. She states she has had change in the vision greater in the right eye than on the left maybe a month or more. She noted initially that things were foggy or blurry. The patient states that on Day "I got floaters." She then scheduled the appointment and was seen today. At the clinic she was noted to have some papilledema and some retinal hemorrhages. The patient also had described some left leg and left hand numbness going on for a little over 24 hours so she was forward here. The patient does note that there were some problems with her insulin prescription so for a number of days she had less than optimal blood sugar control, but she states that problem has been resolved. Patient denies other symptoms. Onset/Timin -: month(s) Location: eyes, left, upper extremity, lower extremity Severity scale (1-10): 0 Consistency: constant Improves with: none Worsens with: none Treatments Prior to Arrival: none - Related Data Home Medications Medication Instructions Recorded Confirmed Pregabalin [Lyrica] 200 mg PO HS 09/24/17 03/03/22 oxyCODONE-APAP 7.5-325MG [Percocet 1 tab PO TID PRN 03/23/20 03/03/22 7.5-325 mg] Atorvastatin [Lipitor] 40 mg PO HS 08/29/20 03/03/22 Butalb/APAP/Caff 50-325-40Mg 1 tab PO Q8H PRN 08/29/20 03/03/22 [Fioricet 50-325-40] Omeprazole 40 mg PO DAILY 08/30/20 03/03/22 Budesonide-Formot 160-4.5 Mcg 2 puff INHALATION BID 03/02/22 03/03/22 [Symbicort 160-4.5 Mcg Inhaler] Dulaglutide [Trulicity] 0.75 mg SQ WE 03/02/22 03/03/22 QUEtiapine [SEROquel] 50 mg PO HS 03/02/22 03/03/22 Aspirin 81 mg PO DAILY 03/03/22 03/03/22 Previous Rx's Medication Instructions Recorded Desvenlafaxine Succinate [Pristiq 50 mg PO DAILY #30 tab.er.24h 04/05/20 ER] lamoTRIgine [LaMICtal] 200 mg PO HS #30 tablet 04/05/20 Clopidogrel Bisulfate [Plavix] 75 mg PO DAILY #90 tab 03/03/22 Allergies Allergy/AdvReac Type Severity Reaction Status Date / Time ampicillin AdvReac Nausea & Verified 08/10/22 20:51 Vomiting & Diarrhea fluoxetine [From Prozac] AdvReac SUICIDAL Verified 08/10/22 20:51 morphine AdvReac Nausea & Verified 08/10/22 20:51 Vomiting Review of Systems ROS Statement: Those systems with pertinent positive or pertinent negative responses have been documented in the HPI. ROS Other: All systems not noted in ROS Statement are negative. Constitutional: Denies: fever, chills, weakness Eyes: Reports: vision change. Denies: eye pain, eye discharge ENT: Denies: hearing loss Respiratory: Denies: cough, dyspnea Cardiovascular: Denies: chest pain, palpitations, edema, syncope Gastrointestinal: Reports: vomiting. Denies: abdominal pain, diarrhea Genitourinary: Denies: dysuria, hematuria Musculoskeletal: Denies: back pain Skin: Denies: rash Neurological: Denies: headache, weakness, numbness Past Medical History Past Medical History: COPD, Diabetes Mellitus, GERD/Reflux, Osteoarthritis (OA) Additional Past Medical History / Comment(s): SOB w/exertion, NEUROPATHY, NECK PAIN, DIVERTICULAR DISEASE, emphysema History of Any Multi-Drug Resistant Organisms: None Reported Past Surgical History: Section, Cholecystectomy, Heart Catheterization With Stent, Hysterectomy, Orthopedic Surgery Additional Past Surgical History / Comment(s): cervical fusion, right knee partial replacement, rotator cuff repair right shoulder, right middle finger tendon surg. as a child, CTS right wrist Past Anesthesia/Blood Transfusion Reactions: No Reported Reaction Additional Past Anesthesia/Blood Transfusion Reaction / Comment(s): past blood transfusion-no reaction. Date of Last Stent Placement:: 2019 Past Psychological History: Anxiety, Depression Smoking Status: Current every day smoker General Exam Limitations: no limitations General appearance: alert, in no apparent distress Head exam: Present: atraumatic, normocephalic Eye exam: Present: normal appearance, PERRL, EOMI. Absent: scleral icterus, conjunctival injection ENT exam: Present: normal oropharynx Neck exam: Present: normal inspection Respiratory exam: Present: normal lung sounds bilaterally. Absent: respiratory distress, wheezes, rales, rhonchi, stridor Cardiovascular Exam: Present: regular rate, normal rhythm, systolic murmur. Absent: diastolic murmur, rubs, gallop GI/Abdominal exam: Present: soft. Absent: distended, tenderness, guarding, rebound, rigid, mass Extremities exam: Present: normal inspection, normal capillary refill. Absent: pedal edema, calf tenderness Back exam: Present: normal inspection. Absent: CVA tenderness (R), CVA tenderness (L) Neurological exam: Present: alert Skin exam: Present: warm, dry, intact, normal color. Absent: rash Course Vital Signs 08/10/22 20:44 Temperature 98.2 F Pulse Rate 91 Respiratory 22 Rate Blood Pressure 130/52 O2 Sat by Pulse 98 Oximetry - Reevaluation(s) Reevaluation #1: 08/11/22 00:04 The case is discussed with Dr. Montes, and his treatment recommendations are incorporated. He states that he can have the patient in clinic tomorrow as there will be a retina specialist available. He states that outpatient workup is the usual course for this finding. I subsequently discussed with the patient and she states she is already scheduled with the clinical project coordinator on Wednesday and will keep that appointment. EKG Findings - EKG Results: EKG: interpreted by ERMD, sinus rhythm (Rate 80 bpm), normal axis, normal QRS, normal ST/T - HI, Pacemaker, Normal: Normal tracing: normal tracing Medical Decision Making - Medical Decision Making Patient is 66-year-old woman here to have further evaluation after she had describes some left-sided numbness. Patient also with retinal hemorrhages found in the optometry clinic. Further history does reveal that the patient has some months of having fatigue with exertion consistent with her anemia. She has not noted a tarry stools. She has not noted any other blood loss. The patient be transfused here in emergency department and would like to go home. She will follow with the clinical project coordinator to continue workup of the retinal hemorrhages that the clinical project coordinator suspect are related to her diabetes. Note that she did have some problems with her insulin prescription and 4. Time did have poor glucose control. - Lab Data Result diagrams: 08/10/22 22:32 08/10/22 22:32 Lab Results 08/10/22 08/10/22 08/10/22 Range/Units 00:15 22:32 22:32 WBC 6.9 (3.8-10.6) k/uL RBC 3.08 L (3.80-5.40) m/uL Hgb 5.1 L* (11.4-16.0) gm/dL Hct 19.4 L* (34.0-46.0) % MCV 62.9 L (80.0-100.0) fL MCH 16.6 L (25.0-35.0) pg MCHC 26.4 L (31.0-37.0) g/dL RDW 18.4 H (11.5-15.5) % Plt Count 295 (150-450) k/uL MPV 9.4 Neutrophils % 76 % Lymphocytes % 15 % Monocytes % 5 % Eosinophils % 2 % Basophils % 0 % Neutrophils # 5.2 (1.3-7.7) k/uL Lymphocytes # 1.0 (1.0-4.8) k/uL Monocytes # 0.4 (0-1.0) k/uL Eosinophils # 0.1 (0-0.7) k/uL Basophils # 0.0 (0-0.2) k/uL Hypochromasia Marked Poikilocytosis Moderate Anisocytosis Slight Microcytosis Marked PT 10.9 (9.0-12.0) sec INR 1.0 (<1.2) APTT 24.1 (22.0-30.0) sec Sodium (137-145) mmol/L Potassium (3.5-5.1) mmol/L Chloride (98-107) mmol/L Carbon Dioxide (22-30) mmol/L Anion Gap mmol/L BUN (7-17) mg/dL Creatinine (0.52-1.04) mg/dL Est GFR (CKD-EPI)AfAm (>60 ml/min/1.73 sqM) Est GFR (CKD-EPI)NonAf (>60 ml/min/1.73 sqM) Glucose (74-99) mg/dL Calcium (8.4-10.2) mg/dL Total Bilirubin (0.2-1.3) mg/dL AST (14-36) U/L ALT (4-34) U/L Alkaline Phosphatase (38-126) U/L Troponin I (0.000-0.034) ng/mL C-Reactive Protein (<1.0) mg/dL Total Protein (6.3-8.2) g/dL Albumin (3.5-5.0) g/dL Blood Type Blood Type Confirm Blood Type Recheck No Previous Record Bld Type Recheck Status CABO Indicated Antibody Screen Crossmatch Spec Expiration Date 08/13/2022 - 231408/10/22 08/10/22 08/10/22 Range/Units 22:32 22:32 23:59 WBC (3.8-10.6) k/uL RBC (3.80-5.40) m/uL Hgb (11.4-16.0) gm/dL Hct (34.0-46.0) % MCV (80.0-100.0) fL MCH (25.0-35.0) pg MCHC (31.0-37.0) g/dL RDW (11.5-15.5) % Plt Count (150-450) k/uL MPV Neutrophils % % Lymphocytes % % Monocytes % % Eosinophils % % Basophils % % Neutrophils # (1.3-7.7) k/uL Lymphocytes # (1.0-4.8) k/uL Monocytes # (0-1.0) k/uL Eosinophils # (0-0.7) k/uL Basophils # (0-0.2) k/uL Hypochromasia Poikilocytosis Anisocytosis Microcytosis PT (9.0-12.0) sec INR (<1.2) APTT (22.0-30.0) sec Sodium 138 (137-145) mmol/L Potassium 4.3 (3.5-5.1) mmol/L Chloride 102 (98-107) mmol/L Carbon Dioxide 22 (22-30) mmol/L Anion Gap 14 mmol/L BUN 24 H (7-17) mg/dL Creatinine 0.94 (0.52-1.04) mg/dL Est GFR (CKD-EPI)AfAm 72 (>60 ml/min/1.73 sqM) Est GFR (CKD-EPI)NonAf 63 (>60 ml/min/1.73 sqM) Glucose 161 H (74-99) mg/dL Calcium 8.9 (8.4-10.2) mg/dL Total Bilirubin 0.1 L (0.2-1.3) mg/dL AST 18 (14-36) U/L ALT 11 (4-34) U/L Alkaline Phosphatase 53 (38-126) U/L Troponin I <0.012 (0.000-0.034) ng/mL C-Reactive Protein <0.5 (<1.0) mg/dL Total Protein 6.6 (6.3-8.2) g/dL Albumin 4.3 (3.5-5.0) g/dL Blood Type A Positive Blood Type Confirm Blood Type Recheck Bld Type Recheck Status Antibody Screen NEGATIVE Crossmatch See Detail Spec Expiration Date 08/11/22 Range/Units 00:20 WBC (3.8-10.6) k/uL RBC (3.80-5.40) m/uL Hgb (11.4-16.0) gm/dL Hct (34.0-46.0) % MCV (80.0-100.0) fL MCH (25.0-35.0) pg MCHC (31.0-37.0) g/dL RDW (11.5-15.5) % Plt Count (150-450) k/uL MPV Neutrophils % % Lymphocytes % % Monocytes % % Eosinophils % % Basophils % % Neutrophils # (1.3-7.7) k/uL Lymphocytes # (1.0-4.8) k/uL Monocytes # (0-1.0) k/uL Eosinophils # (0-0.7) k/uL Basophils # (0-0.2) k/uL Hypochromasia Poikilocytosis Anisocytosis Microcytosis PT (9.0-12.0) sec INR (<1.2) APTT (22.0-30.0) sec Sodium (137-145) mmol/L Potassium (3.5-5.1) mmol/L Chloride (98-107) mmol/L Carbon Dioxide (22-30) mmol/L Anion Gap mmol/L BUN (7-17) mg/dL Creatinine (0.52-1.04) mg/dL Est GFR (CKD-EPI)AfAm (>60 ml/min/1.73 sqM) Est GFR (CKD-EPI)NonAf (>60 ml/min/1.73 sqM) Glucose (74-99) mg/dL Calcium (8.4-10.2) mg/dL Total Bilirubin (0.2-1.3) mg/dL AST (14-36) U/L ALT (4-34) U/L Alkaline Phosphatase (38-126) U/L Troponin I (0.000-0.034) ng/mL C-Reactive Protein (<1.0) mg/dL Total Protein (6.3-8.2) g/dL Albumin (3.5-5.0) g/dL Blood Type Blood Type Confirm A Positive Blood Type Recheck Bld Type Recheck Status Antibody Screen Crossmatch Spec Expiration Date Disposition Clinical Impression: Anemia, Retinal hemorrhage, bilateral Disposition: HOME SELF-CARE Condition: Good Instructions (If sedation given, give patient instructions): Anemia (ED), Retinal Hemorrhage (ED) Is patient prescribed a controlled substance at d/c from ED?: No Referrals: Charlie Esqueda MD [Primary Care Provider] - 1-2 days John Paul Montes MD [STAFF PHYSICIAN] - 1-2 days
[2022-08-10 23:15] LABS: HCT 19.4 % (34.0-46.0); HGB 5.1 gm/dL (11.4-16.0)
[2022-08-11 04:58] VITALS: BP 125/50; PULSE 70; RESP 16; TEMP 98.2
== END 2022-08-11 05:10 | disposition home or self-care (01) ==
LOC: EC 20:42
DX: D64.9 Anemia, unspecified (principal); H35.63 Retinal hemorrhage, bilateral; R06.02 Shortness of breath; J44.9 Chronic obstructive pulmonary disease, unspecified; E11.9 Type 2 diabetes mellitus without complications; K21.9 Gastro-esophageal reflux disease without esophagitis; M19.90 Unspecified osteoarthritis, unspecified site; F41.9 Anxiety disorder, unspecified; F32.A Depression, unspecified; F17.200 Nicotine dependence, unspecified, uncomplicated; Z88.0 Allergy status to penicillin; Z88.8 Allergy status to other drugs, medicaments and biological substances; Z88.6 Allergy status to analgesic agent; Z79.82 Long term (current) use of aspirin; Z79.899 Other long term (current) drug therapy
CPT/HCPCS: 36415; 93005; 86900; 86901; 80053; 84484; 85025; 85610; 85730; 86850; 86920; 86140; 87040; 71046; 70450; 99285; P9016

== ENCOUNTER → 2022-09-04 | Outpatient (CLI) | payer MEDICARE, OTHER | END | disposition home or self-care (01) | LOC: LABWHC1 14:59 | PROVIDERS: ATTEND Ophthalmology | DX: I77.89 Other specified disorders of arteries and arterioles (principal) | CPT/HCPCS: 36415; 85652; 86140 ==

== ENCOUNTER → 2022-09-10 | Outpatient (CLI) | payer MEDICARE, OTHER ==
--- NOTE | 2022-09-10 21:41 | MR ---
MRI CERVICAL SPINE: CLINICAL HISTORY: Headache with neck pain for 15 to 20 years causing pain or weakness into left arm a nd fingers. History of prior neck surgery. TECHNIQUE: Multiplanar, multisequence imaging of the cervical spine is performed without IV contrast. COMPARISON: CT cervical spine February 14, 2022. FINDINGS: Sagittal images of the cervical spine show the craniocervical junction to remain within nor mal limits. The cervical and upper thoracic spinal cord is normal in caliber. Small 3 mm round focus of T2 hyperintensity anterior C6-C7 disc space level sagittal image 8. Grade 1 retrolisthesis C4 on C5. Artifact from postsurgical change C4-C6 levels is redemonstrated. Moderate to severe disc space n arrowing C6-C7 level is seen better on CT versus MRI.. The bone marrow signal intensity is within no rmal limits above and below surgical levels. Sfij-ew-oybrhyts anterior spurring below surgical levels is redemonstrated. Axial images at C2-C3 level appear within normal limits. Axial images at C3-C4 level show prominent left sided spurring and foraminal disc protrusion causing advanced left-sided neural foraminal narrowing. Axial images at C4-C5 level show artifact from surgical change. There is marginal spurring causing mo derate left and mild right-sided neural foraminal narrowing. Axial images at C5-C6 level show lobulated posterior spurring effacing posterior lateral thecal sac a nd causing moderate left and mild right-sided neural foraminal narrowing. Axial images at C6-C7 level show artifact degradation with marginal spurring causing advanced left an d mild to moderate right-sided neural foraminal narrowing. Axial images at C7-T1 level show marginal spurring causing asymmetric moderate left-sided neural fora marilin narrowing. There is confirmation of tiny round T2 hyperintense focus in the left ventral spinal cord axial image 16 at the C6-C7 level. IMPRESSION: Scoliotic curvature redemonstrated. Postsurgical changes C4-C6 level again seen. Multilev el degenerative changes as detailed above. Multilevel neural foraminal narrowing. Small focus of hype rintensity possible edema suspected in the anterior left spinal cord at C6-C7 level. Other etiologies are not excluded.
== END | disposition home or self-care (01) ==
LOC: RADMRIMAIN 13:29
PROVIDERS: ATTEND Orthopaedic Surgery
DX: M47.22 Other spondylosis with radiculopathy, cervical region (principal); M50.11 Cervical disc disorder with radiculopathy, high cervical region; M99.71 Connective tissue and disc stenosis of intervertebral foramina of cervical region
CPT/HCPCS: 72141

== ENCOUNTER → 2022-09-10 | Outpatient (CLI) | payer MEDICARE, OTHER ==
--- NOTE | 2022-09-11 11:50 | MM ---
Reason for Exam: Screening (asymptomatic). Last mammogram was performed 4 year(s) and 6 month(s) ago. Patient History: Menarche at age 14. First Full-Term at age 22. Hysterectomy at age 42. Postmenopausal. Estrogen for 8 years, 2 months, until age 58. Risk Values: Connie 5 year model risk: 1.4%. NCI Lifetime model risk: 4.3%. Prior Study Comparison: 07/04/2015 Bilateral Screening Mammogram, [facility]. 07/27/2017 Bilateral Diagnostic Mammogram, [facility]. 03/01/2018 Bilateral Diagnostic Mammogram, [facility]. Tissue Density: The breast tissue is heterogeneously dense. This may lower the sensitivity of mammography. Findings: Analyzed By CAD. Benign oil cyst calcifications bilaterally. No significant change from prior exams. Overall Assessment: Negative, BI-RAD 1 Management: Screening Mammogram of both breasts in 1 year. 1. Patient should continue monthly self breast exams. 2. A clinical breast exam by your physician is recommended on an annual basis. 3. This exam should not preclude additional follow-up of suspicious palpable abnormalities. Electronically signed and approved by: Emilia Pickett M.D. Radiologist
== END | disposition home or self-care (01) ==
LOC: RADMAMWWP 14:36
PROVIDERS: ATTEND Family Medicine
DX: Z12.31 Encounter for screening mammogram for malignant neoplasm of breast (principal); Z78.0 Asymptomatic menopausal state
CPT/HCPCS: 77063; 77067

== ENCOUNTER 2022-10-02 06:33 | Day surgery (SDC) | payer MEDICARE, OTHER ==
[~2022-10-02 06:33] MED LIST changes: +ACETAMINOPHEN TAB 500 MG TAB PO PRN; +DEXAMETHASONE SOD PHOSPHATE 4 MG/ML 1 ML VIAL IV ONE; +HEPARIN SODIUM,PORCINE/PF 5,000 UNIT/0.5 ML SYRINGE SQ PRN; +LIDOCAINE 1% (10MG/ML) FOR IV START INTRADERMA PRN; +ONDANSETRON 4 MG/2 ML VIAL IVP ONE; -REGADENOSON 0.4 MG/5 ML SYRINGE IV ONE
[2022-10-02] MEDS ORDERED: LACTATED RINGERS 1,000 ML IV ONE (06:59)
[2022-10-02] MEDS ORDERED: HYDROmorphone 0.5 MG/0.5 ML SYRINGE IVP PRN (07:00)
[2022-10-02 07:27] LABS: Glucose,Whole Blood 127 mg/dL (70-110)
[2022-10-02] MEDS ORDERED: DEXAMETHASONE SOD PHOSPHATE 4 MG/ML 1 ML VIAL IVP ONE (07:34)
[2022-10-02] MEDS ORDERED: ONDANSETRON 4 MG/2 ML VIAL IVP ONE (07:34)
[2022-10-02] MEDS ORDERED: GLYCOPYRROLATE 0.2 MG/ML 2 ML VIAL ONE (07:42)
[2022-10-02] MEDS ORDERED: SUCCINYLCHOLINE CHLORIDE 200 MG/10 ML VIAL IV ONE (07:42)
[2022-10-02] MEDS ORDERED: PHENYLEPHRINE-0.9% NACL SYG 1,000 MCG/10 ML SYRINGE ONE (07:42)
[2022-10-02] MEDS ORDERED: LIDOCAINE 2% INJ 20 MG/ML (2 ML VIAL) ONE (07:42)
[2022-10-02] MEDS ORDERED: fentaNYL (PF) 50 MCG/ML 2 ML AMP ONE (07:42)
[2022-10-02] MEDS ORDERED: KETAMINE 10 MG/ML 20 ML VIAL ONE (07:42)
[2022-10-02] MEDS ORDERED: ROCURONIUM 10 MG/ML (5 ML VIAL) IV ONE (07:42)
[2022-10-02] MEDS ORDERED: PROPOFOL 10 MG/ML 20 ML VIAL IV ONE (07:42)
[2022-10-02] MEDS ORDERED: NEOSTIGMINE 1 MG/ML 10 ML VIAL ONE (07:42)
[2022-10-02] MEDS ORDERED: MIDAZOLAM 2 MG/2 ML VIAL ONE (07:42)
[2022-10-02] MEDS ORDERED: BUPIVACAINE (PF) 0.25% 30 ML VIAL SQ ONE ×2 (08:03→08:08)
--- NOTE | 2022-10-02 09:01 | P.GSHP ---
History of Present Illness H&P Date: 10/02/22 Chief Complaint: GERD Is a 67-year-old female referred from Dr. Charlie Haas. MThe patient has had long-standing problems with reflux esophagitis. The patient underwent recent EGD is found have evidence of esophagitis. Patient has been well informed on t he procedure of laparoscopic Layne fundoplication. The patient is aware the risk of the conversion to the open procedure, risk of injury to the stomach, liver and spleen. The patient is also a risk of recurrent GERD and dysphagia symptoms. The patient understands there is a postoperative diet of full liquids for 2 weeks after surgery. Past Medical History Past Medical History: COPD, Diabetes Mellitus, GERD/Reflux, Osteoarthritis (OA) Additional Past Medical History / Comment(s): SOB w/exertion, NEUROPATHY, NECK PAIN, DIVERTICULAR DISEASE, emphysema History of Any Multi-Drug Resistant Organisms: None Reported Past Surgical History: Section, Cholecystectomy, Heart Catheterization With Stent, Hysterectomy, Orthopedic Surgery Additional Past Surgical History / Comment(s): cervical fusion, right knee partial replacement, rotator cuff repair right shoulder, right middle finger tendon surg. as a child, CTS right wrist Past Anesthesia/Blood Transfusion Reactions: No Reported Reaction Additional Past Anesthesia/Blood Transfusion Reaction / Comment(s): past blood transfusion-no reaction. Date of Last Stent Placement:: 2019 Smoking Status: Current every day smoker - Past Family History Mother Family Medical History: No Reported History Father History Unknown: Yes Medications and Allergies Home Medications Medication Instructions Recorded Confirmed Type Pregabalin [Lyrica] 200 mg PO HS 09/24/17 10/02/22 History oxyCODONE-APAP 7.5-325MG [Percocet 1 tab PO TID PRN 03/23/20 10/02/22 History 7.5-325 mg] Desvenlafaxine Succinate [Pristiq 50 mg PO DAILY #30 tab.er.24h 04/05/20 10/02/22 Rx ER] lamoTRIgine [LaMICtal] 200 mg PO HS #30 tablet 04/05/20 10/02/22 Rx Atorvastatin [Lipitor] 40 mg PO HS 08/29/20 10/02/22 History Butalb/APAP/Caff 50-325-40Mg 1 tab PO Q8H PRN 08/29/20 10/02/22 History [Fioricet 50-325-40] Omeprazole 40 mg PO DAILY 08/30/20 10/02/22 History Budesonide-Formot 160-4.5 Mcg 2 puff INHALATION BID 03/02/22 10/02/22 History [Symbicort 160-4.5 Mcg Inhaler] QUEtiapine [SEROquel] 50 mg PO HS 03/02/22 10/02/22 History Aspirin 81 mg PO DAILY 03/03/22 10/02/22 History Clopidogrel Bisulfate [Plavix] 75 mg PO DAILY #90 tab 03/03/22 10/02/22 Rx Insulin Glargine/Lixisenatide 30 units SQ DAILY 09/28/22 10/02/22 History [Soliqua 100 Unit-33 Mcg/ml Pen] Pantoprazole [Protonix] 40 mg PO DAILY 09/28/22 10/02/22 History Allergies Allergy/AdvReac Type Severity Reaction Status Date / Time ampicillin AdvReac Nausea & Verified 10/02/22 07:05 Vomiting & Diarrhea fluoxetine [From Prozac] AdvReac SUICIDAL Verified 10/02/22 07:05 morphine AdvReac Nausea & Verified 10/02/22 07:05 Vomiting Surgical - Exam Vital Signs Temp Pulse Resp BP Pulse Ox 98.3 F 91 16 136/67 96 10/02/22 07:29 10/02/22 07:29 10/02/22 07:29 10/02/22 07:29 10/02/22 07:29 - General well developed, well nourished, no distress - Eyes PERRL - ENT normal pinna - Neck no masses - Respiratory normal expansion - Cardiovascular Rhythm: regular - Abdomen Right subcostal scar Abdomen: soft, non tender Results - Labs Abnormal Lab Results - Last 24 Hours (Table) 10/02/22 Range/Units 07:18 POC Glucose (mg/dL) 127 H (70-110) mg/dL Assessment and Plan Assessment: GERD. We'll perform laparoscopic Layne fundoplication
[2022-10-02] MEDS ORDERED: HYDROmorphone 1 MG/ML 1 ML SYRINGE IVP PRN (09:02)
--- NOTE | 2022-10-02 09:02 | P.OP ---
Date of Procedure: 10/02/22 Preoperative Diagnosis: GERD Postoperative Diagnosis: GERD Procedure(s) Performed: Laparoscopic Layne fundoplication Anesthesia: BRANDEN Surgeon: Simeon Del Rio Estimated Blood Loss (ml): 5 Pathology: none sent Condition: stable Disposition: PACU Description of Procedure: HThe patient was placed on the operating table in the supine position. The patient received general anesthesia. And was placed in dorsal lithotomy position. The patient was prepped and draped in the usual sterile fashion. The skin incision sites were anesthetized with 1% local Xylocaine. The skin was incised in the left periumbilical area and then using a blade less 5 mm trocar under direct visualization panel cavity was entered. After adequate insufflation the laparoscope was then placed into the peritoneal cavity. Next a 5 mm trochars placed in the right epigastric position. Another 5 millimeter trocar the right lateral position. Another 5 millimeter trocar in the left lateral position a 5 mm trocar is placed in the left epigastric position. And then the initial 5 mm trocar was exchanged for a 10 mm trocar. The left lateral lobe liver was retracted. The hernia was seen. The crural defect was then dissected using the Harmonic scissors device. A 360 crural dissection was performed the esophagus stomach was reduced back into the peritoneal Cavity. The crural defect was then closed using 2-0 Ethibond suture. Next the fundus of the stomach was mobilized using the Fair [place] scissors device. and then a 58- Georgian bougie dilator was placed oropharynx passed into the esophagus and stomach the fundal plication wrap was then performed by grasping the fundus posteriorly and bringing it around the esophagus and stomach fundoplication was then performed using 2-0 Ethibond suture. Care was taken that the fundal location rested over top of the intra-abdominal esophagus. There was no injury seen to the stomach or esophagus. The dilator was then withdrawn. The abdomen was irrigated there is no bleeding seen. The trochars were then withdrawn and then skin incision sites were closed using 3-0 Monocryl suture Steri-Strips are applied. Patient thought procedure well and sent to recovery room in stable condition.
[2022-10-02 09:09] LABS: Glucose,Whole Blood 246 mg/dL (70-110)
[2022-10-02] MEDS ORDERED: SODIUM CHLORIDE 0.9% 1,000 ML IV ONE ×3 (09:11→13:42)
[2022-10-02] MEDS: ONDANSETRON 4 MG/2 ML VIAL IVP PRN ×2 (09:12→21:03)
[2022-10-02] MEDS ORDERED: diphenhydrAMINE 50 MG/ML 1 ML VIAL IVP ONE ×2 (09:16)
[2022-10-02] MEDS ORDERED: INSULIN ASPART (NovoLOG) 100 UNIT/ML VIAL SQ ONE (09:32)
[2022-10-02] MEDS ORDERED: D5-0.45% NACL WITH KCL 20MEQ/L 1,000 ML IV SCH (14:00)
[2022-10-02 14:30] VITALS: TEMP 98.9
[2022-10-02] MEDS: LACTATED RINGERS 1,000 ML IV SCH ×4 (14:34→23:50)
[2022-10-02] MEDS ORDERED: DEXTROSE 50% SYRINGE 50 ML IVP PRN ×2 (15:50)
[2022-10-02 16:18] LABS: Glucose,Whole Blood 226 mg/dL (70-110)
[2022-10-02] MEDS: INSULIN ASPART (NovoLOG) 100 UNIT/ML VIAL SQ SCH (17:19)
--- NOTE | 2022-10-02 18:28 | P.CONS ---
History of Present Illness - Reason for Consult Consult date: 10/02/22 Medical management Requesting physician: Simeon Del Rio - Chief Complaint Abdominal surgery - History of Present Illness This is a very pleasant 67-year-old patient who follows with Dr. Charlie Esqueda. Chronic stable medical conditions include COPD, diabetes, GERD, osteoporosis, diverticulosis. Patient denies excessive symptoms of reflux GERD did not respond to medical management. Patient underwent Layne fundoplication for hiatal hernia. Currently declining in bed. On clear liquid diet. Review of systems: GEN.: None EYES: None HEENT: None NECK: None RESPIRATORY: Wheezing short of breath CARDIOVASCULAR: None GASTROINTESTINAL: Heartburn GENITOURINARY: None MUSCULOSKELETAL: Joint pain LYMPHATICS: None HEMATOLOGICAL: None PSYCHIATRY: None NEUROLOGICAL: None Past medical history to include: COPD, diabetes, GERD, osteoarthritis, peripheral neuropathy, diverticulosis, anxiety depression Social history: No alcohol. He smoked about a pack and a half a day for close to 45 years now trying to cut back Family history: Reviewed, noncontributory to presentation Physical examination: VITAL SIGNS: 98.9, 91, 16, 1 26 x 64, 94% room air GENERAL: BMI 24.2, reclining but awake, tired. EYES: Pupils equal. Conjunctiva normal. HEENT: External appearance of nose and ears normal, oral cavity grossly normal. NECK: JVD not raised; masses not palpable. HEART: First and second heart sounds are normal; no edema. LUNGS: Respiratory rate increased; diminished breath sounds, prolonged respiration wheezing. ABDOMEN: Soft, mildly tender, liver spleen not palpable, no masses palpable. PSYCH: Alert and oriented x3; mood and affect normal. MUSCULOSKELETAL:No Clubbing/cyanosis;muscles-grossly intact. Evidence of OA NEUROLOGICAL: Cranial nerves grossly intact; no facial asymmetry, power and sensation grossly intact. LYMPHATICS: No lymph nodes palpable in the axilla and neck INVESTIGATIONS, reviewed in the clinical context: Lab from 10/01/2022 WBC 5.9 hemoglobin 10.1 platelets 252 creatinine 0.8 potassium 4.4 Assessment and plan: -Layne fundoplication for severe GERD/hiatal hernia Layne clear liquid diet -COPD in a current smoker DuoNeb, Symbicort -Chronic nicotine dependence, cigarettes smoker Nicotine patch -Hyperlipidemia Lipitor -Diabetes mellitus type 2, chronically on insulin Resume Lantus. Follow Accu-Cheks -Anxiety depression Seroquel, Pristiq -Normocytic anemia Follow-up outpatient with Dr. Esqueda Resume home medications. Hold off aspirin and Plavix. Follow Accu-Cheks. DuoNeb, Symbicort. Care was discussed with the patient. Questions answered. Thank you Dr. Del Rio Past Medical History Past Medical History: COPD, Diabetes Mellitus, GERD/Reflux, Osteoarthritis (OA) Additional Past Medical History / Comment(s): SOB w/exertion, NEUROPATHY, NECK PAIN, DIVERTICULAR DISEASE, emphysema History of Any Multi-Drug Resistant Organisms: None Reported Past Surgical History: Section, Cholecystectomy, Heart Catheterization With Stent, Hysterectomy, Orthopedic Surgery Additional Past Surgical History / Comment(s): cervical fusion, right knee partial replacement, rotator cuff repair right shoulder, right middle finger tendon surg. as a child, CTS right wrist Past Anesthesia/Blood Transfusion Reactions: No Reported Reaction Additional Past Anesthesia/Blood Transfusion Reaction / Comm: past blood transfusion-no reaction. Date of Last Stent Placement:: 2019 Past Psychological History: Anxiety, Depression Additional Psychological History / Comment(s): History of attempting to cut wrist and history of overdosing Smoking Status: Current every day smoker Past Alcohol Use History: None Reported Additional Past Alcohol Use History / Comment(s): down to 5 cigs/day from 1-1 2ppd since age of 23 Past Drug Use History: None Reported - Past Family History Mother Family Medical History: No Reported History Father History Unknown: Yes Medications and Allergies Home Medications Medication Instructions Recorded Confirmed Type Pregabalin [Lyrica] 200 mg PO HS 09/24/17 10/02/22 History oxyCODONE-APAP 7.5-325MG [Percocet 1 tab PO TID PRN 03/23/20 10/02/22 History 7.5-325 mg] Desvenlafaxine Succinate [Pristiq 50 mg PO DAILY #30 tab.er.24h 04/05/20 10/02/22 Rx ER] lamoTRIgine [LaMICtal] 200 mg PO HS #30 tablet 04/05/20 10/02/22 Rx Atorvastatin [Lipitor] 40 mg PO HS 08/29/20 10/02/22 History Butalb/APAP/Caff 50-325-40Mg 1 tab PO Q8H PRN 08/29/20 10/02/22 History [Fioricet 50-325-40] Omeprazole 40 mg PO DAILY 08/30/20 10/02/22 History Budesonide-Formot 160-4.5 Mcg 2 puff INHALATION BID 03/02/22 10/02/22 History [Symbicort 160-4.5 Mcg Inhaler] QUEtiapine [SEROquel] 50 mg PO HS 03/02/22 10/02/22 History Aspirin 81 mg PO DAILY 03/03/22 10/02/22 History Clopidogrel Bisulfate [Plavix] 75 mg PO DAILY #90 tab 03/03/22 10/02/22 Rx Insulin Glargine/Lixisenatide 30 units SQ DAILY 09/28/22 10/02/22 History [Soliqua 100 Unit-33 Mcg/ml Pen] Pantoprazole [Protonix] 40 mg PO DAILY 09/28/22 10/02/22 History Allergies Allergy/AdvReac Type Severity Reaction Status Date / Time ampicillin AdvReac Nausea & Verified 10/02/22 07:05 Vomiting & Diarrhea fluoxetine [From Prozac] AdvReac SUICIDAL Verified 10/02/22 07:05 morphine AdvReac Nausea & Verified 10/02/22 07:05 Vomiting Physical Exam Vitals: Vital Signs Temp Pulse Pulse Pulse Resp BP Pulse Ox 10/02/22 15:51 81 16 10/02/22 14:28 98.9 F 81 16 126/64 94 L 10/02/22 13:00 78 16 157/70 93 L 10/02/22 12:00 73 16 153/73 93 L 10/02/22 11:30 73 16 158/63 94 L 10/02/22 10:59 68 16 154/70 92 L 10/02/22 10:40 73 16 150/67 92 L 10/02/22 10:25 66 16 153/68 98 10/02/22 10:10 61 16 151/67 98 10/02/22 09:55 65 16 162/72 98 10/02/22 09:40 65 16 154/68 99 10/02/22 09:25 72 16 164/74 100 10/02/22 09:10 67 16 154/70 100 10/02/22 08:55 98 F 77 17 177/77 100 10/02/22 07:29 98.3 F 91 16 136/67 96 Intake and Output 10/02/22 10/02/22 10/02/22 06:59 14:59 22:59 Intake Total 100 1800 250 Output Total 5 Balance 100 1795 250 Intake: IV 100 1800 Intake, IV Titration 250 Amount Lactated Ringers 1,000 ml 250 @ 125 mls/hr IV .Q8H [facility] Rx#:[id number] Output: Estimated Blood Loss 5 Other: Voiding Method Toilet Weight 61.9 kg Results Labs: Abnormal Lab Results - Last 24 Hours (Table) 10/02/22 10/02/22 10/02/22 Range/Units 07:18 09:07 16:17 POC Glucose (mg/dL) 127 H 246 H 226 H (70-110) mg/dL
[2022-10-02] MEDS ORDERED: NICOTINE 14MG/24HR PATCH TRANSDERM SCH (18:30)
[2022-10-02] MEDS: SYMBICORT 160-4.5 MCG INHALER INHALATION SCH (19:07)
[2022-10-02] MEDS: IPRATROPIUM-ALBUTEROL 3 ML NEB INHALATION SCH (19:07)
[2022-10-02 20:24] VITALS: BP 129/68; RESP 20
[2022-10-02 20:59] LABS: Glucose,Whole Blood 151 mg/dL (70-110)
[2022-10-02] MEDS ORDERED: lamoTRIgine 100 MG TAB PO SCH (21:00)
[2022-10-02] MEDS ORDERED: PREGABALIN 100 MG CAP PO SCH (21:00)
[2022-10-02] MEDS ORDERED: QUEtiapine 50 MG TAB PO SCH (21:00)
[2022-10-02] MEDS ORDERED: ATORVASTATIN 40 MG TAB PO SCH (21:00)
[2022-10-03] MEDS ORDERED: PANTOPRAZOLE 40 MG TABLET PO SCH (07:30)
[2022-10-03] MEDS: SYMBICORT 160-4.5 MCG INHALER INHALATION SCH (08:49)
[2022-10-03] MEDS: IPRATROPIUM-ALBUTEROL 3 ML NEB INHALATION SCH ×2 (08:49→12:00)
[2022-10-03] MEDS ORDERED: NICOTINE 14MG/24HR PATCH TRANSDERM SCH (09:00)
[2022-10-03] MEDS ORDERED: ENOXAPARIN 40 MG/0.4 ML SYRINGE SQ SCH (09:00)
[2022-10-03] MEDS ORDERED: DESVENLAFAXINE SUCCINATE 50 MG TAB.ER.24H PO SCH (09:00)
[2022-10-03] MEDS ORDERED: NON FORMULARY DRUG (Insulin Glargine/Lixisenatide [Soliqua 100 Unit-33 Mcg/Ml Pen] 3 ML In SQ SCH (09:00)
[2022-10-03] MEDS: INSULIN ASPART (NovoLOG) 100 UNIT/ML VIAL SQ SCH ×2 (09:38→12:16)
[2022-10-03] MEDS: LACTATED RINGERS 1,000 ML IV SCH (09:38)
[2022-10-03 11:37] LABS: Glucose,Whole Blood 113 mg/dL (70-110)
[2022-10-03 11:37] LABS: Glucose,Whole Blood 138 mg/dL (70-110)
[2022-10-03 12:01] VITALS: PULSE 87
--- NOTE | 2022-10-03 12:34 | P.DS ---
Providers Expected date of discharge: 10/03/22 Attending physician: Simeon Del Rio Consults: 10/02/22 09:02 Consult Physician Routine Consulting Provider: Charlie Esqueda Reason/Comments: Medical management Do you want consulting provider notified?: Yes Primary care physician: Charlie Esqueda [facility] Course: Patient underwent laparoscopic Layne fundoplication yesterday. Patient is doing well today. Tolerating clear liquids without difficulty. Patient would like to go home today she says. She is afebrile. Abdomen soft with minimal incisional tenderness, incisions clean and dry. Will plan discharge. Home on Layne full liquid diet. Follow-up with Dr. Del Rio postdischarge. Plan - Discharge Summary Discharge Rx Participant: No New Discharge Prescriptions: No Action Pregabalin [Lyrica] 200 mg PO HS oxyCODONE-APAP 7.5-325MG [Percocet 7.5-325 mg] 1 tab PO TID PRN PRN Reason: Pain Desvenlafaxine Succinate [Pristiq ER] 50 mg PO DAILY #30 tab.er.24h lamoTRIgine [LaMICtal] 200 mg PO HS #30 tablet Butalb/APAP/Caff 50-325-40Mg [Fioricet 50-325-40] 1 tab PO Q8H PRN PRN Reason: Migraine Headache Atorvastatin [Lipitor] 40 mg PO HS Omeprazole 40 mg PO DAILY Aspirin 81 mg PO DAILY Clopidogrel Bisulfate [Plavix] 75 mg PO DAILY #90 tab Insulin Glargine/Lixisenatide [Soliqua 100 Unit-33 Mcg/ml Pen] 30 units SQ DAILY Budesonide-Formot 160-4.5 Mcg [Symbicort 160-4.5 Mcg Inhaler] 2 puff INHALATION BID QUEtiapine [SEROquel] 50 mg PO HS Pantoprazole [Protonix] 40 mg PO DAILY Discharge Medication List Pregabalin [Lyrica] 200 mg PO HS 09/24/17 [History] oxyCODONE-APAP 7.5-325MG [Percocet 7.5-325 mg] 1 tab PO TID PRN 03/23/20 [History] Desvenlafaxine Succinate [Pristiq ER] 50 mg PO DAILY #30 tab.er.24h 04/05/20 [Rx] lamoTRIgine [LaMICtal] 200 mg PO HS #30 tablet 04/05/20 [Rx] Atorvastatin [Lipitor] 40 mg PO HS 08/29/20 [History] Butalb/APAP/Caff 50-325-40Mg [Fioricet 50-325-40] 1 tab PO Q8H PRN 08/29/20 [History] Omeprazole 40 mg PO DAILY 08/30/20 [History] Budesonide-Formot 160-4.5 Mcg [Symbicort 160-4.5 Mcg Inhaler] 2 puff INHALATION BID 03/02/22 [History] QUEtiapine [SEROquel] 50 mg PO HS 03/02/22 [History] Aspirin 81 mg PO DAILY 03/03/22 [History] Clopidogrel Bisulfate [Plavix] 75 mg PO DAILY #90 tab 03/03/22 [Rx] Insulin Glargine/Lixisenatide [Soliqua 100 Unit-33 Mcg/ml Pen] 30 units SQ DAILY 09/28/22 [History] Pantoprazole [Protonix] 40 mg PO DAILY 09/28/22 [History] Follow up Appointment(s)/Referral(s): Simeon Del Rio MD [STAFF PHYSICIAN] - 1 Week Patient Instructions/Handouts: *Surgery [facility] - ([facility]) Lap Layne Fundiplication Post-Op Instructions, Clear Liquid Diet (DC) Activity/Diet/Wound Care/Special Instructions: Layne clears No straws or carbonation
--- NOTE | 2022-10-03 18:26 | P.PN ---
Progress Note - Text Progress Note Date: 10/03/22 - Chief Complaint Abdominal surgery Hospital course This is a very pleasant 67-year-old patient who follows with Dr. Charlie Esqueda. Chronic stable medical conditions include COPD, diabetes, GERD, osteoporosis, diverticulosis. Patient denies excessive symptoms of reflux GERD did not respond to medical management. Patient underwent Layne fundoplication for hiatal hernia. Currently reclining in bed. On clear liquid diet. 10/03/2022: Tolerating Layne liquid diet. Taking medication. Has been up to the bathroom. Feeling well. Discussed with the patient. Past medical history to include: COPD, diabetes, GERD, osteoarthritis, peripheral neuropathy, diverticulosis, anxiety depression Social history: No alcohol. He smoked about a pack and a half a day for close to 45 years now trying to cut back Family history: Reviewed, noncontributory to presentation Physical examination: VITAL SIGNS: Vitals noted GENERAL: Comfortable EYES: Pupils equal. Conjunctiva normal. HEENT: External appearance of nose and ears normal, oral cavity grossly normal. NECK: JVD not raised; masses not palpable. HEART: First and second heart sounds are normal; no edema. LUNGS: Respiratory rate normal; diminished breath sounds, ABDOMEN: Soft, mildly tender, liver spleen not palpable, no masses palpable. PSYCH: Alert and oriented x3; mood and affect normal. MUSCULOSKELETAL:No Clubbing/cyanosis;muscles-grossly intact. Evidence of OA INVESTIGATIONS, reviewed in the clinical context: Lab from 10/01/2022 WBC 5.9 hemoglobin 10.1 platelets 252 creatinine 0.8 potassium 4.4 Assessment and plan: -Layne fundoplication for severe GERD/hiatal hernia Layne clear liquid diet -COPD in a current smoker Bran Siddiquicort -Chronic nicotine dependence, cigarettes smoker Nicotine patch -Hyperlipidemia Lipitor -Diabetes mellitus type 2, chronically on insulin Lantus. Follow Accu-Cheks -Anxiety depression Seroquel, Pristiq -Normocytic anemia Follow-up outpatient with Dr. Esqueda Discussed with patient. Question also. Follow with Dr. Charlie Esqueda outpatient. Thank you Dr. Del Rio
== END 2022-10-03 14:51 | disposition home or self-care (01) ==
LOC: OR 06:33 → 4SSUR 13:39 → OR 10-03 14:51
PROVIDERS: ATTEND Surgery
DX: K21.9 Gastro-esophageal reflux disease without esophagitis (principal); J44.9 Chronic obstructive pulmonary disease, unspecified; E11.9 Type 2 diabetes mellitus without complications; M19.90 Unspecified osteoarthritis, unspecified site; G62.9 Polyneuropathy, unspecified; M54.2 Cervicalgia; K57.90 Diverticulosis of intestine, part unspecified, without perforation or abscess without bleeding; F17.200 Nicotine dependence, unspecified, uncomplicated; Z98.891 History of uterine scar from previous surgery; Z90.49 Acquired absence of other specified parts of digestive tract; Z95.5 Presence of coronary angioplasty implant and graft; Z90.710 Acquired absence of both cervix and uterus; Z98.890 Other specified postprocedural states; Z79.899 Other long term (current) drug therapy; Z79.82 Long term (current) use of aspirin; Z79.4 Long term (current) use of insulin; Z79.1 Long term (current) use of non-steroidal anti-inflammatories (NSAID); Z88.0 Allergy status to penicillin; Z88.5 Allergy status to narcotic agent; Z88.8 Allergy status to other drugs, medicaments and biological substances
CPT/HCPCS: 94640 ×4; 43280; J1200; J1100; J0690; J2405; J1170; J1644

== ENCOUNTER → 2022-12-11 | Outpatient (CLI) | payer MEDICARE, OTHER | END | disposition home or self-care (01) | LOC: RADMRIMAIN 07:29 | PROVIDERS: ATTEND Family Medicine | DX: Z53.9 Procedure and treatment not carried out, unspecified reason (principal) ==

== ENCOUNTER → 2022-12-18 | Outpatient (CLI) | payer MEDICARE, OTHER | END | disposition home or self-care (01) | LOC: LABPAT 15:24 | PROVIDERS: ATTEND Orthopaedic Surgery | DX: Z01.812 Encounter for preprocedural laboratory examination (principal); M47.812 Spondylosis without myelopathy or radiculopathy, cervical region; N88.2 Stricture and stenosis of cervix uteri; Z22.322 Carrier or suspected carrier of Methicillin resistant Staphylococcus aureus | CPT/HCPCS: 86850; 86900; 86901; 87070 ==

== ENCOUNTER 2022-12-21 10:07 | Day surgery (SDC) | payer MEDICARE, OTHER ==
[~2022-12-21 10:07] MED LIST changes: -ACETAMINOPHEN TAB 500 MG TAB PO PRN; +ALPRAZolam 0.25 MG TAB PO PRN; +ALPRAZolam 0.5 MG TAB PO PRN; +ASPIRIN 325 MG TAB PO ONE; -DEXAMETHASONE SOD PHOSPHATE 4 MG/ML 1 ML VIAL IV ONE; -HEPARIN SODIUM,PORCINE/PF 5,000 UNIT/0.5 ML SYRINGE SQ PRN; -LIDOCAINE 1% (10MG/ML) FOR IV START INTRADERMA PRN; +NITROGLYCERIN SL TABS 0.4 MG TAB SUBLINGUAL PRN; -ONDANSETRON 4 MG/2 ML VIAL IVP ONE
[2022-12-21 10:30] LABS: Glucose,Whole Blood 161 mg/dL (70-110)
[2022-12-21] MEDS: SODIUM CHLORIDE 0.9% 1,000 ML in EMPTY BAG 1 BAG IV SCH ×2 (10:30→21:36)
[2022-12-21] MEDS ORDERED: MIDAZOLAM 2 MG/2 ML VIAL IV ONE ×4 (12:44→13:10)
[2022-12-21] MEDS ORDERED: LIDOCAINE 1% INJ 10MG/ML (5 ML VIAL-PF) SQ ONE (12:46)
[2022-12-21] MEDS ORDERED: VERAPAMIL SYRINGE (5 MG/10 ML) INTRAARTER ONE (12:48)
[2022-12-21] MEDS ORDERED: fentaNYL (PF) 50 MCG/ML 2 ML AMP IV ONE ×2 (12:54)
[2022-12-21] MEDS ORDERED: HEPARIN SODIUM 1,000 UN/ML (10ML VL) IV ONE ×3 (12:55→13:44)
[2022-12-21] MEDS ORDERED: IOPAMIDOL-370 125ML BTL INJ ONE (13:31)
[2022-12-21] MEDS ORDERED: oxyCODONE-APAP 7.5-325MG 1 EACH TAB PO PRN (13:38)
[2022-12-21] MEDS ORDERED: QUEtiapine 50 MG TAB PO PRN (13:38)
[2022-12-21] MEDS ORDERED: RX INFO: IV CONTRAST WAS GIVEN 1 EACH MISC MISCELLANE PRN (13:39)
[2022-12-21] MEDS ORDERED: ATROPINE SULFATE 0.1 MG/ML 10ML SYRINGE IV PRN (13:39)
[2022-12-21] MEDS ORDERED: NITROGLYCERIN SL TABS 0.4 MG TAB SUBLINGUAL PRN (13:39)
[2022-12-21] MEDS ORDERED: MAG HYDROX/AL HYDROX/SIMETH 30 ML CUP PO PRN (13:39)
[2022-12-21] MEDS ORDERED: ZOLPIDEM 5 MG TAB PO PRN (13:39)
[2022-12-21] MEDS ORDERED: CLOPIDOGREL 75 MG TAB PO ONE (13:44)
[2022-12-21] MEDS ORDERED: SODIUM CHLORIDE 0.9% 1,000 ML in EMPTY BAG 1 BAG IV SCH (13:45)
--- NOTE | 2022-12-21 13:46 | P.PCN ---
Date of Procedure: 12/21/22 Operative Findings: CARDIAC CATHETERIZATION AND PERCUTANEOUS CORONARY INTERVENTION PERFORMING PHYSICIAN: Biju Park MD, [facility] PROCEDURE PERFORMED: 1. Selective right and left coronary angiogram 2. Left heart catheterization 3. Successful stenting of OM1 using 3.0 x 15 mm Xience FELICITAS which with an excellent angiographic results INDICATION: This is a 67-year-old female patient was coronary artery disease and prior stenting of the LAD and LCx as well as hypertension and dyslipidemia and history of smoking was seen in the office recently for preoperative cardiac assessment before noncardiac surgery. She underwent myocardial perfusion imaging stress test recently and that came in to be abnormal for reversible 50/ischemia and in the light of.heart catheterization was advised COMPLICATION: None APPROACH: Right radial artery LEVEL OF SEDATION: Moderate with the sedation time off 48 minutes PROCEDURE DESCRIPTION: After obtaining an informed consent the patient was brought to the cardiac medical laboratory technician. The right radial artery was cannulated using micropuncture technique under ultrasound guidance, the micropuncture wire passed easily then I placed a 6- Serbian sheath. I did selective right and left coronary angiogram using JR4 and JL 3.5 catheters. Left heart catheterization was performed using the JR4 catheter which cross the aortic valve then I did pulled back across the valve. After that I did intervene on the LCx. The procedure was completed with no complications. SELECTIVE CORONARY ANGIOGRAM: The right coronary artery: Large caliber vessel and a dominant vessel. The RCA has mild diffuse disease. Distally bifurcates into PDA and PLV branches both appeared to be angiographically normal. Left main: Large caliber vessel. Its angiographically normal. Bifurcates into a LCx and LAD The left circumflex: Large caliber vessel nondominant vessel. The proximal LCx appeared to be angiographically normal and gives rises into an OM1 which has a lesion appeared to be in the range of 60-70%. The circumflex after that has a critical lesion appeared to be in the range of 99.9%. Gives rises to an OM 2 which is a small caliber vessel. The left anterior descending artery: The proximal LAD is a stented and the stent is patent. The proximal LAD gives rise into a large diagonal branch which has an ostial lesion appears to be in the range of 70-80%. The mid and distal LAD have mild disease only. HEMODYNAMICS: The LVEDP was about 8 mmHg was no significant gradient across aortic valve PCI OF THE OM1: Anticoagulation was initiated using heparin with continuous ACT monitoring. Subsequently I did engage the left main using JL 3.5 guiding catheter. I did wire OM1 using a whisper wire and the left circumflex using a run-through wire. Attempting advancing 2.5 x 12 mm balloon was unsuccessful. After that I was able to advance 1.5 mm balloon and I did balloon angioplasty of the left circumflex. After that I did balloon angioplasty of left circumflex now using 2.5 x 12 mm balloon. After that I did balloon angioplasty of OM1 using 2.5 x 12 mm balloon. After that I did the stent OM1 across the left circumflex where I deployed 3.0 x 15 mm stent where the stent was positioned under fluoroscopy guidance and deployed under its nominal pressure. The following angiogram showed good angiographic results in OM1 with intermediate lesion involving the left circumflex itself after OM1. I decided to treat that medically. The procedure was completed was no complication CONCLUSION: Patent stent in the proximal LAD. Critical disease involving the ostial of the first diagonal. That has not changed compared to before Critical disease involving the proximal left circumflex by the bifurcation of OM1 which has intermediate to severe lesion. I did stenting of OM1 and balloon angioplasty of the left circumflex Mild disease involving the right coronary artery POSTPROCEDURE MANAGEMENT: #1 dual antiplatelet therapy using aspirin and Plavix for at least 6 small #2 aggressive cholesterol control #3 follow-up with the patient
[2022-12-21] MEDS: SYMBICORT 160-4.5 MCG INHALER INHALATION SCH (19:40)
[2022-12-21] MEDS ORDERED: QUEtiapine 50 MG TAB PO SCH (21:00)
[2022-12-21] MEDS ORDERED: ATORVASTATIN 80 MG TAB PO SCH (21:00)
[2022-12-21] MEDS ORDERED: PATIENT'S OWN (Insulin Glargine/Lixisenatide [Soliqua 100 Unit-33 Mcg/Ml Pen] 3 ML In SQ SCH (21:00)
[2022-12-21] MEDS ORDERED: lamoTRIgine 100 MG TAB PO SCH (21:00)
[2022-12-21] MEDS: PREGABALIN 75 MG CAP PO SCH (21:36)
--- NOTE | 2022-12-22 01:55 | CONS ---
CONSULTATION HISTORY: Status post PTCA of the left main obtuse marginal and the right circumflex. HOME MEDICATIONS: Have been reordered including, 1. Lamictal 200 mg at night. 2. Percocet 7.5 t.i.d. 3. Pregabalin 150 b.i.d. 4. Quetiapine 50 mg daily. 5. Symbicort 160/4.5 two puffs b.i.d. 6. Soliqua 100/33 fifteen units daily. CONDITION: Stable. PROGNOSIS: Guarded. REVIEW OF SYSTEMS: A 14-point review of systems otherwise negative. SOCIAL HISTORY: Smoking cessation, given counseling. PHYSICAL EXAMINATION: VITAL SIGNS: Stable, afebrile. CARDIOVASCULAR: S1, S2. LUNGS: Clear. GI: Soft. GENERAL: She is sitting up in bed, rocking due to anxiety, giving appropriate answers. Range of motion full x4. SKIN: No rashes. ABDOMEN: Soft. ASSESSMENT: 1. Nicotine addiction. 2. Chronic obstructive pulmonary disease. 3. Coronary artery disease, status post stents x2. 4. Smoking cessation counseling given. Home medicines have been ordered for degenerative disk disease, neuropathy, bipolar, depression. Prognosis is guarded. Please see further orders. MMODL / IJN: [id number] /
[2022-12-22] MEDS: SYMBICORT 160-4.5 MCG INHALER INHALATION SCH (07:22)
[2022-12-22 07:49] VITALS: BP 131/71; PULSE 65; RESP 16; TEMP 97.8
[2022-12-22] MEDS: PREGABALIN 75 MG CAP PO SCH (08:18)
--- NOTE | 2022-12-22 08:20 | P.DS ---
Providers Attending physician: Biju Park Consults: 12/21/22 13:39 Consult Physician Routine Consulting Provider: [facility] Consult Reason/Comments: Post Interventional patient Do you want consulting provider notified?: Already Contacted 12/21/22 18:22 Consult Physician Routine Consulting Provider: Charlie Esqueda Consult Reason/Comments: medical management Do you want consulting provider notified?: Yes [facility] Course: The patient is a 67-year-old female patient with a past medical history significant for coronary artery disease and prior stenting of the LAD and LCx wa s seen in the office recently for preoperative cardiac assessment is she underwent myocardial perfusion imaging stress is and that showed reversibility/ischemia at least in the moderate range. She underwent heart catheterization yesterday and stenting of the left circumflex with a good angiographic results and with no complication. She was seen this morning but she is asymptomatic. She is heme Adamic be stable. The right radial site is soft and nontender with no bruises. The patient is going to be discharged on dual antiplatelet therapy and I'll follow-up with the patient next week in the office Plan - Discharge Summary Discharge Rx Participant: Yes New Discharge Prescriptions: New Atorvastatin [Lipitor] 80 mg PO HS #90 tab Aspirin 81 mg PO DAILY #90 tab Clopidogrel [Plavix] 75 mg PO DAILY #90 tab Continue Pregabalin [Lyrica] 150 mg PO BID oxyCODONE-APAP 7.5-325MG [Percocet 7.5-325 mg] 1 tab PO TID PRN PRN Reason: Pain lamoTRIgine [LaMICtal] 200 mg PO HS #30 tablet Insulin Glargine/Lixisenatide [Soliqua 100 Unit-33 Mcg/ml Pen] 15 units SQ HS QUEtiapine [SEROquel] 50 mg PO HS PRN PRN Reason: depression Budesonide-Formot 160-4.5 Mcg [Symbicort 160-4.5 Mcg Inhaler] 2 puff INHALATION BID QUEtiapine [SEROquel] 50 mg PO HS Discharge Medication List Pregabalin [Lyrica] 150 mg PO BID 09/24/17 [History] oxyCODONE-APAP 7.5-325MG [Percocet 7.5-325 mg] 1 tab PO TID PRN 03/23/20 [History] lamoTRIgine [LaMICtal] 200 mg PO HS #30 tablet 04/05/20 [Rx] Budesonide-Formot 160-4.5 Mcg [Symbicort 160-4.5 Mcg Inhaler] 2 puff INHALATION BID 03/02/22 [History] QUEtiapine [SEROquel] 50 mg PO HS 03/02/22 [History] Insulin Glargine/Lixisenatide [Soliqua 100 Unit-33 Mcg/ml Pen] 15 units SQ HS 09/28/22 [History] QUEtiapine [SEROquel] 50 mg PO HS PRN 12/18/22 [History] Aspirin 81 mg PO DAILY #90 tab 12/22/22 [Rx] Atorvastatin [Lipitor] 80 mg PO HS #90 tab 12/22/22 [Rx] Clopidogrel [Plavix] 75 mg PO DAILY #90 tab 12/22/22 [Rx] Follow up Appointment(s)/Referral(s): Biju Park MD [STAFF PHYSICIAN] - 01/01/23 4:45 pm (Appointment is at Main Office on ) Patient Instructions/Handouts: Clopidogrel (By mouth), After Radial Heart Catheterization (GEN) Activity/Diet/Wound Care/Special Instructions: Follow up as directed, sooner for problems or concerns.
[2022-12-22] MEDS ORDERED: ASPIRIN 81 MG PO SCH (09:00)
[2022-12-22] MEDS ORDERED: CLOPIDOGREL 75 MG TAB PO SCH (09:00)
[2022-12-22 10:40] VITALS: BMI 24.7
== END 2022-12-22 10:45 | disposition home or self-care (01) ==
LOC: CATHCVL 10:07 → 6NMEDSUR 13:32 → CATHCVL 12-22 10:45
PROVIDERS: ATTEND Internal Medicine Interventional Cardiology
DX: I25.10 Atherosclerotic heart disease of native coronary artery without angina pectoris (principal); I10 Essential (primary) hypertension; E78.5 Hyperlipidemia, unspecified; J44.9 Chronic obstructive pulmonary disease, unspecified; F17.210 Nicotine dependence, cigarettes, uncomplicated; E11.9 Type 2 diabetes mellitus without complications; Z95.5 Presence of coronary angioplasty implant and graft; I34.0 Nonrheumatic mitral (valve) insufficiency; I65.29 Occlusion and stenosis of unspecified carotid artery; Z79.02 Long term (current) use of antithrombotics/antiplatelets; Z79.82 Long term (current) use of aspirin; Z79.51 Long term (current) use of inhaled steroids; Z79.891 Long term (current) use of opiate analgesic; Z79.899 Other long term (current) drug therapy; Z88.1 Allergy status to other antibiotic agents
CPT/HCPCS: 94640; 93458; 92928; 92921; C9600; C1769 ×3; C1887; C1894; C1725 ×2; C1874; J2250; J2001; J3010; J1644; Q9967

== ENCOUNTER → 2023-09-10 | Outpatient (CLI) | payer MEDICARE, OTHER ==
--- NOTE | 2023-09-12 07:34 | MR ---
MRI CERVICAL SPINE: CLINICAL HISTORY: Headache and Neck pain and weakness into both arms for 20 years. cervicalgia. TECHNIQUE: Multiplanar, multisequence imaging of the cervical spine is performed without IV contrast. COMPARISON: Prior MRI cervical spine September 10, 2022. FINDINGS: Sagittal images of the cervical spine show the craniocervical junction to remain within nor mal limits. The cervical and upper thoracic spinal cord is normal in caliber. Small 3 mm round focus of T2 hyperintensity anterior C6-C7 disc space level sagittal image 8 is redemonstrated. Grade 1 ret rolisthesis C5 on C6 is again seen. Artifact from postsurgical change C4-C6 levels is redemonstrated. Moderate to severe disc space narrowing C6-C7 level is seen better on CT versus MRI is once again no chantel. The bone marrow signal intensity is within normal limits above and below surgical levels. Mild-t o-moderate anterior spurring below surgical levels is redemonstrated. Axial images at C2-C3 level to remain within normal limits. Axial images at C3-C4 level redemonstrate prominent left sided spurring and foraminal disc protrusion causing advanced left-sided neural foraminal narrowing and effacement of the anterolateral thecal sa c. No significant change from prior. Axial images at C4-C5 level show artifact from surgical change. There is marginal spurring causing mo derate left and mild right-sided neural foraminal narrowing. There is right posterior spur disc compl ex mildly effacing the anterior thecal sac redemonstrated. No significant change from prior. Axial images at C5-C6 level show spondylolisthesis and lobulated posterior spurring effacing posterio r lateral thecal sac and causing moderate left and mild right-sided neural foraminal narrowing. No si gnificant change from prior. Axial images at C6-C7 level show artifact degradation with marginal spurring causing moderate to adva nced left and mild to moderate right-sided neural foraminal narrowing. No significant change from felice or. Axial images at C7-T1 level show marginal spurring causing asymmetric moderate left-sided neural fora marilin narrowing. There is confirmation of tiny round T2 hyperintense focus in the left ventral spinal cord axial image 17 at the C6-C7 level. IMPRESSION: Scoliotic curvature redemonstrated. Postsurgical changes C4-C6 level again seen. Multilev el degenerative changes redemonstrated. Multilevel neural foraminal narrowing again seen. Small focus of hyperintensity probable myelomalacia suspected in the anterior left spinal cord at C6-C7 level. N o significant change from most recent MRI.
--- NOTE | 2023-09-12 07:38 | MR ---
EXAMINATION TYPE: MR shoulder LT wo con DATE OF EXAM: 09/10/2023 COMPARISON: None. HISTORY: Left shoulder pain for 6 months with difficulty raising arm overhead after falling injury TECHNIQUE: Multiplanar, multisequence imaging of the left shoulder is performed without contrast. FINDINGS: Rotator Cuff: Some increased signal in the supraspinatus tendon with surrounding bursal surface fluid . Infraspinatus tendon intact. Subscapularis tendon intact. Rotator cuff muscle bulk preserved. Acromioclavicular Joint: Moderate capsular hypertrophy. Mild to moderate narrowing and spurring. Mass effect underlying fat plane noted sagittal image 13. Glenohumeral Joint: Moderate sized joint effusion. Narrowing is seen. No significant spurring. Labrum: Increased signal superior labrum suggesting degenerative tearing coronal image 11 for referen ce. Biceps Tendon: The long head of biceps is in normal location within bicipital groove. Bone marrow signal: No focal abnormal marrow signal is appreciated. Other: No additional significant abnormality is appreciated. IMPRESSION: 1. Tendinosis of the distal supraspinatus tendon. No significant rotator cuff tear is seen. 2. AC joint arthropathy with suggestion of underlying impingement. Correlate clinically. 3. Degenerative superior labral tear. 4. Moderate size glenohumeral joint effusion.
== END | disposition home or self-care (01) ==
LOC: RADMRIMAIN 17:23
PROVIDERS: ATTEND Orthopaedic Surgery
DX: M75.42 Impingement syndrome of left shoulder (principal); M47.812 Spondylosis without myelopathy or radiculopathy, cervical region; M67.814 Other specified disorders of tendon, left shoulder; M19.012 Primary osteoarthritis, left shoulder; M24.112 Other articular cartilage disorders, left shoulder; M25.412 Effusion, left shoulder
CPT/HCPCS: 72141

== ENCOUNTER → 2023-12-17 | Outpatient (CLI) | payer MEDICARE, OTHER | END | disposition home or self-care (01) | LOC: LABPAT 10:30 | PROVIDERS: ATTEND Orthopaedic Surgery | DX: Z01.812 Encounter for preprocedural laboratory examination (principal); M47.12 Other spondylosis with myelopathy, cervical region; Z22.322 Carrier or suspected carrier of Methicillin resistant Staphylococcus aureus | CPT/HCPCS: 86850; 86900; 86901; 87070 ==

== ENCOUNTER 2023-12-27 08:13 | Inpatient (IN) | payer MEDICARE, OTHER ==
--- NOTE | 2023-12-27 06:30 | P.HPOR ---
History of Present Illness H&P Date: 12/17/23 .D:Date: 12/17/23 : 09:23am .T:Title: [facility] History and Physical Date of :[birth year] [id number]: NKDA Age: 68 year Height: 5'3" Weight: 135 lbs BP:143/75 BMI: 23.03 kg/m2 Occupation: Retired VAS: 6 Hand: Left IMPRESSION: It was my pleasure to have seen and examined Lynda. I reviewed the patient's clinical syndrome, physical findings, and imaging studies during the appointment today. It is my impression that the patient has a diagnosis of. 1. Cervical spondylotic myelopathy 2. Left upper extremity weakness 3. OALL 4. s/p C4-7 ACDF I outlined the natural course history without intervention and various interventional options. Surgery Risk Review Ms. Leyva is presenting for evaluation of neck and left upper extremity pain, left upper extremity numbness and tingling. It was my pleasure to have seen and examined Ms. Leyva. In our visit today we have had a chance to go over subjective complaints, physical examination findings and treatments including the natural course history without intervention and various interventional options. The patients imaging demonstrates: MRI [id number]/13/2023 of CervicalSpine completed at [facility]:severe spondylotic changes to the cervical spine with severe stenosis at each level C2-7. There is disc bulging, facet hypertrophy as well as arthrosis. No fractures noted. No lesions noted at this time. MRI uowkwxah47/13/2023 of Left Shoulder completed at [facility]:rotator cuff tendinosis noted with some fraying on the bursal side. There is spurring underneath the AC joint which shows OA changes. There is some OA changes noted of the GH area which is intact as well. No lesions. No fracture. XRay Cervical multiview (Lateral, Flexion, Extension, AP, Oblique) 6 views taken at [facility] on 08/25/23 of Cervical Spine: - Re-reviewed with the patient in office today. No fracture. No lesions. maintained alignment. No instability. On physical exam, Ms. Leyva demonstrates: A continued ache-like pain throughout the posterior aspect of the neck that radiates down into left shoulder and upper extremity with a sharp, shooting quality. The patient notes an intermittent stabbing pain throughout the neck after any quick or repetitive neck movements. The patient states that her left upper extremity pain is associated with nu mbness and tingling. The patient states that her neck and shoulder symptoms are exacerbated by prolonged activity, which makes it difficult for her to complete many of her activities of daily living. The patient notes that she had fallen at home in July 2023, which exacerbated her current symptoms. The patient reports experiencing moderate to severe sleep disturbances related to her ongoing pain and associated symptoms. I have explained to the patient that as their condition progresses it will cause further neurological deficits and eventual paralysis. Based on the patients imaging, physical exam, and the rapid progression and disabling nature of their symptoms, at this time I recommend surgery in the form of a: C2-T2 decompression and fusion. I discussed the risk and benefits of this procedure at length with Ms. Leyva. The patient agreed to considered pursuing the procedure above mentioned. Prior to surgery, she should follow up with her PCP (Cardio, ID, IM etc) for clearance. Questions were invited and answered, and the patient wishes to proceed as outlined below. Currently, I am recommendin.C2-T2 decompression and fusion 2.Review of surgical risks and benefits as well as an educational packet on the proposed surgical procedure. Risks: All surgical procedures come with inherent risks, including those related to positioning, anesthesia, intraoperative findings, and postoperative complications. It is important to understand that surgery does not come with any guarantee of a successful outcome as complications and adverse events are always possible. The patient was given a handout in office today discussing the surgical procedure and risks associated with the intervention, both of which were discussed with the patient. These risks include but are not limited to the following: * Experiencing same, different or even worse symptoms in back, neck, arms, or legs compared to before surgery. Requiring further surgery or other forms of treatment presently or at some time in the future at same or other levels of the intended spine surgery. On an extreme but fortunately relatively rare basis severe complication such as blindness, stroke, heart attack, temporary and/or permanent nerve injury, paralysis, coma, or may occur, sometimes without known explanation. Surgical complications may include but are not limited to risk of infection, fluid accumulation in the surgical dissection site, including a seroma or hematoma, that requires additional surgery, wound drainage, bleeding, new numbness or weakness, vision changes/loss, spinal fluid leakage, non-healing and/or infected incision, headaches, difficulty or inability to swallow, hoarseness, hemopneumothorax, pneumothorax, impotence, retrograde ejaculation, vaginal dryness; injury to nerves, spinal cord, blood vessels, lymphatics or other vital organs (i.e., bowel injury, injury to the great vessels); heterotopic bone formation; complications related to the hardware such as screws, rods, cages including misplaced hardware, device failure, instrumentation at the wrong spine level, hardware fracture/breakage, or hardware loosening; vertebral failure of the spinal column above or below the newly placed hardware; retained surgical instrumentations or devices and the need for further surgery. * Medical risks of the planned spine surgery include but are not limited to generalized Infections to the whole body or local areas outside of the surgical site (sepsis), heart attack, bleeding, anaphylaxis, meningitis, seizure, epilepsy, hearing loss, burn flores, laceration of the head or other areas of the body, bruising, hypersensitivity of the skin, bladder over distension; allergic reaction; shoulder injury related to positioning; fat, blood and air clots to other areas of the body like heart, lungs, brain; failure of internal organs such as lungs, kidneys, liver and excessive bleeding. If blood transfusions are necessary, note that transfusions may cause intolerance reactions such as anaphylaxis or other complex reactions. Despite best efforts, the results of spine surgery might not heal in terms of bone, soft tissues such as skin, fascia, ligaments, and joints. Additionally, in order to achieve best possible results, spine surgery may be carried out beyond the initially planned levels and involve decompression, fusion including insertion of hardware at levels other than the original intended area of surgical interest change some portions of the procedure in order to ensure the best possible outcomes. With spine surgery and spinal fusion, there are different off label uses of instrumentation (devices, implants and hardware) as well as biological substances (bone morphogenic proteins, demineralized bone matrix) as well as using extra bone from allograft sources (i.e. cadaver bone) or autograft (iliac crest bone, ribs, or the spine itself). The patient has been given information about these practices and their inherent risks and benefits. [facility] is an educational center that serves as a training facility for neurosurgical and orthopedic AEROSPACE TECHNICIAN and Nursing students. Physician assistants are medically trained surgical providers who function in the outpatient, inpatient, and operating room setting under the direct supervision of the attending surgeon. [facility] has multiple operating rooms with single and overlapping rooms running daily. They currently function under the required guidelines as produced by the [facility] with regards to the overlapping rooms and will continue to comply with changes to this policy as they occur. The requirements include and are complied with as follows: (1) the critical portions of the overlapping rooms will not occur at the same time, (2) the attending physician will be physically present during the critical portions of the procedure and immediately available during the entire case, and (3) a back-up attending is designated should the primary attending not be immediately available. The patient has had a chance to review all the listed information, has been given print outs detailing this information, and has had all his/her questions answered to their satisfaction. It was my pleasure to have seen and examined Ms. Leyva. In our visit today we have had a chance to go over my understanding of our patient's current condition, the natural course history without intervention and various interventional options. Questions were invited and answered, and the patient wishes to proceed as outlined above. I have seen and examined the patient for 25 minutes and we have spent more than 50% of the time in repeat and detailed counseling about the patient's condition, its natural course history with out and as much as can be predicted with surgery and re-review of various surgical treatment options. In conclusion, Ms. Leyva requested we proceed with the above suggested surgery and are willing to accept risks and limitations of the suggested surgery as nature of the disease process and our best attempts at treatment for the condition. Thank you again for allowing us to be part of your patient's care. Please don't hesitate to contact me if you have any further questions. Follow- up: Post procedure Patient Education: (Informational booklet, instructions, etc) given at today's appointment: Yes .ED:Patient Education: Y Medications Reviewed: YES In our visit today Ms. Leyva and I have had a chance to go over my understanding of the patient's current condition, the natural course history without intervention and various interventional options. Questions were invited and answered, and the patient wishes to proceed as outlined above. I will be sure to keep you updated afterMs. Leyva returns here for further follow-up. Thank you again for your referral. Please do not hesitate to contact me if you have any further questions. Signed and authenticated by: Trev Randolph [facility] Minimally Invasive Spine Surgery [address] [place] [address] This message is confidential, intended only for the named recipient(s) and may contain information that is privileged or exempt from disclosure under applicable law. If you are not the intended recipient(s), you are notified that the dissemination, distribution or copying of this information is strictly prohibited. If you received this message in error, please notify the sender then delete this message. Patient verbalizes understanding of the information discussed. The above note was initiated by Yamilet Hernandez, physician recording dairy and food laboratory assistant for Dr. Trev Sands. This note has been reviewed by Dr. Sands, who has made his personal changes and impressions for this document. CC: Charlie Esqueda M.D. #Orders: Cervical Spine 2v xray #Orders: Lumbar 2v xray #Orders: Thoracic, 2v xray # SIGNED BY Trev Sands (GOO)12/24/2023 08:22A Past Medical History Past Medical History: Coronary Artery Disease (CAD), COPD, Diabetes Mellitus, Hyperlipidemia, Osteoarthritis (OA), Skin Disorder Additional Past Medical History / Comment(s): SOB WITH ACTIVITY., NEUROPATHY ARMS & FEET., NECK PAIN, DIVERTICULAR DISEASE, EMPHYSEMA, STATES DRY SKIN AND RIGHT BUTTOCKS IRRITATED WITH SITTING., SEE CARDIOLOGY H & P. History of Any Multi-Drug Resistant Organisms: None Reported Past Surgical History: Section, Cholecystectomy, Heart Catheterization With Stent, Hernia Repair, Hysterectomy, Orthopedic Surgery Additional Past Surgical History / Comment(s): cervical fusion, right knee partial replacement, rotator cuff repair right shoulder, right middle finger tendon surg. as a child, CTS right wrist. , states heart cath x3 with 1 stent each time., Layne surgery. Past Anesthesia/Blood Transfusion Reactions: Previous Problems w/ Anesthesia, Motion Sickness, Postoperative Nausea & Vomiting (PONV) Additional Past Anesthesia/Blood Transfusion Reaction / Comment(s): past blood transfusion-no reaction. Date of Last Stent Placement:: 2019 Smoking Status: Current every day smoker - Past Family History Father Family Medical History: No Reported History Medications and Allergies Home Medications Medication Instructions Recorded Confirmed Type Pregabalin [Lyrica] 150 mg PO BID 09/24/17 12/22/23 History oxyCODONE-APAP 7.5-325MG [Percocet 1 tab PO TID PRN 03/23/20 12/22/23 History 7.5-325 mg] lamoTRIgine [LaMICtal] 200 mg PO HS #30 tablet 04/05/20 12/22/23 Rx Budesonide-Formot 160-4.5 Mcg 2 puff INHALATION BID 03/02/22 12/22/23 History [Symbicort 160-4.5 Mcg Inhaler] QUEtiapine [SEROquel] 50 mg PO HS 03/02/22 12/22/23 History QUEtiapine [SEROquel] 50 mg PO HS PRN 12/18/22 12/22/23 History Aspirin 81 mg PO DAILY #90 tab 12/22/22 12/22/23 Rx Atorvastatin [Lipitor] 80 mg PO HS #90 tab 12/22/22 12/22/23 Rx Tirzepatide [Mounjaro] 5 mg SQ SA 12/22/23 12/22/23 History Allergies Allergy/AdvReac Type Severity Reaction Status Date / Time ampicillin AdvReac Nausea & Verified 12/22/23 11:56 Vomiting & Diarrhea fluoxetine [From Prozac] AdvReac SUICIDAL Verified 12/22/23 11:56 morphine AdvReac Nausea & Verified 12/22/23 11:56 Vomiting Physical Examination Osteopathic Statement: *. No significant issues noted on an osteopathic structural exam other than those noted in the History and Physical/Consult.
[~2023-12-27 08:13] MED LIST changes: +ACETAMINOPHEN TAB 500 MG TAB PO PRN; -ALPRAZolam 0.25 MG TAB PO PRN; -ALPRAZolam 0.5 MG TAB PO PRN; -ASPIRIN 325 MG TAB PO ONE; +GABAPENTIN 300 MG CAP PO PRN; +LIDOCAINE 1% (10MG/ML) FOR IV START INTRADERMA PRN; -NITROGLYCERIN SL TABS 0.4 MG TAB SUBLINGUAL PRN; +ONDANSETRON 4 MG/2 ML VIAL IVP PRN; +TRANEXAMIC 1,000 MG/100ML-NACL 1,000 MG in SALINE 1 100ML.BAG IVPB PRN; +fentaNYL (PF) 50 MCG/ML 2 ML AMP IV PRN
[2023-12-27 09:16] LABS: Glucose,Whole Blood 150 mg/dL (70-110)
[2023-12-27] MEDS ORDERED: LACTATED RINGERS 1,000 ML IV ONE ×3 (09:23→14:52)
[2023-12-27] MEDS: LACTATED RINGERS 1,000 ML IV SCH (09:23)
[2023-12-27 09:29] LABS: INR 0.9 (<1.2); Partial Thromboplastin Time 26.4 sec (22.0-30.0); Prothrombin Time 10.3 sec (10.0-12.5)
[2023-12-27] MEDS ORDERED: MIDAZOLAM 2 MG/2 ML VIAL IVP ONE ×2 (09:59→10:25)
[2023-12-27] MEDS ORDERED: SODIUM CHLORIDE 0.9% 1,000 ML IV ONE ×2 (10:25→13:36)
--- NOTE | 2023-12-27 11:09 | XR ---
EXAMINATION TYPE: XR chest 1V portable DATE OF EXAM: 12/27/2023 HISTORY: Shortness of breath. COMPARISON: 08/10/2022 TECHNIQUE: Single view of the chest is submitted. FINDINGS: Demonstrated are scattered senescent parenchymal change. Right IJ central venous line with distal ti p overlying the SVC. There is no evidence for focal infiltrate. The heart is stable. Hilar and mediastinal structures are within normal limits. Degenerative changes are seen of the dorsal spine. IMPRESSION: 1. Chronic changes without evidence for acute pulmonary disease.
[2023-12-27] MEDS ORDERED: ETOMIDATE 2 MG/ML 10 ML VIAL ONE (11:47)
[2023-12-27] MEDS ORDERED: GLYCOPYRROLATE 0.2 MG/ML 2 ML VIAL ONE (11:47)
[2023-12-27] MEDS ORDERED: fentaNYL (PF) 50 MCG/ML 2 ML AMP ONE (11:47)
[2023-12-27] MEDS ORDERED: ROCURONIUM 10 MG/ML (5 ML VIAL) IV ONE (11:47)
[2023-12-27] MEDS ORDERED: KETAMINE HCL IN 0.9 % NACL 50 MG/5 ML SYRINGE ONE (11:47)
[2023-12-27] MEDS ORDERED: TRANEXAMIC 1,000 MG/100ML-NACL PREMIX BAG ONE (11:47)
[2023-12-27] MEDS ORDERED: MIDAZOLAM 2 MG/2 ML VIAL ONE (11:47)
[2023-12-27] MEDS ORDERED: PHENYLEPHRINE 10 MG/ML VIAL ONE (11:47)
[2023-12-27] MEDS ORDERED: SUCCINYLCHOLINE CHLORIDE 200 MG/10 ML VIAL IV ONE (11:47)
[2023-12-27] MEDS ORDERED: ePHEDrine 50 MG/ML 1 ML VIAL ONE (11:47)
[2023-12-27] MEDS ORDERED: NEOSTIGMINE 1 MG/ML 10 ML VIAL ONE (11:47)
[2023-12-27] MEDS ORDERED: ONDANSETRON 4 MG/2 ML VIAL ONE (11:47)
[2023-12-27] MEDS ORDERED: LIDOCAINE 1% INJ 10MG/ML (20 ML MDV) ONE (11:47)
[2023-12-27] MEDS ORDERED: PROPOFOL 10 MG/ML 20 ML VIAL IV ONE (11:47)
--- NOTE | 2023-12-27 11:58 | P.PN ---
Progress Note - Text Progress Note Date: 12/27/23 Contacted by anesthesia who found that patient had not had clearance from cardio in chart. She has extensive history. They were able to contact cardiology who was able to promptly evaluate patient with EKG and her history. They were able to clear the patient for surgery. Cardiology clearance report was placed in chart from 2022. Appreciate anesthesia and cardio prompt eval. Pt cleared for sx today. Discussed risks and benefits again with patient as outlined in risk review. She is comfortable and wants to proceed. She is willing to accept all risks of surgery. We will proceed.
--- NOTE | 2023-12-27 12:18 | P.CRDCN ---
History of Present Illness Consult date: 12/27/23 History of present illness: HISTORY OF PRESENTING ILLNESS Patient is known to Dr. Cristobal. She has prior history of CAD s/p PCI to LAD and OM. In June 2022 patient had a abnormal myocardial perfusion stress test showing moderate size reversible perfusion defect in the anterolateral wall. Following this patient had a heart catheterization, showed patent stent to LAD. Patient had critical stenosis of ostial OM which was successfully treated with PCI. Since then patient was seen in clinic by Dr. Park for perioperative evaluation for neck surgery and was given clearance. She was recommended to be on aspirin and statin which patient was not taking previously. Today cardiology was asked to see the patient before the surgery to make sure that patient is cleared for the surgery. Patient denies having any active chest pain chest pressure or shortness of breath. Her ECG performed at bedside shows normal sinus rhythm with left anterior fascicular block which is unchanged from prior examinations. There are no ischemic ST changes on ECG. There are no arrhythmias. The patient does not appear in congestive heart failure. REVIEW OF SYSTEMS 14 point review of system is negative except what is mentioned above in HPI. PHYSICAL EXAMINATION Vital signs reviewed. Head: Normocephalic. Eyes: Sclerae nonicteric. Neck: Brisk carotid upstroke, no jugular venous distention. Lungs: Clear to auscultation. Heart: Regular rate and rhythm, S1-S2, no S3, no murmur or rub. Abdomen: Soft nontender, positive bowel sounds no organomegaly. Extremities: No edema, intact distal pulses. Neuro: Alert, oritented, no focal deficits ASSESSMENT Perioperative evaluation for neck surgery Prior history of CAD status post PCI to LAD and OM. Last PCI in 2022. Dyslipidemia Hypertension COPD Smoking PLAN Patient is cleared to undergo surgery from cardiovascular standpoint. Patient is at moderate risk for a low to moderate risk procedure. Continue aspirin and statin perioperative and postoperative period. Past Medical History Past Medical History: Coronary Artery Disease (CAD), COPD, Diabetes Mellitus, Hyperlipidemia, Osteoarthritis (OA), Skin Disorder Additional Past Medical History / Comment(s): SOB WITH ACTIVITY., NEUROPATHY ARMS & FEET., NECK PAIN, DIVERTICULAR DISEASE, EMPHYSEMA, STATES DRY SKIN AND RIGHT BUTTOCKS IRRITATED WITH SITTING., SEE CARDIOLOGY H & P. History of Any Multi-Drug Resistant Organisms: None Reported Past Surgical History: Section, Cholecystectomy, Heart Catheterization With Stent, Hernia Repair, Hysterectomy, Orthopedic Surgery Additional Past Surgical History / Comment(s): cervical fusion, right knee partial replacement, rotator cuff repair right shoulder, right middle finger ten don surg. as a child, CTS right wrist. , states heart cath x3 with 1 stent each time., Layne surgery. Past Anesthesia/Blood Transfusion Reactions: Previous Problems w/ Anesthesia, Motion Sickness, Postoperative Nausea & Vomiting (PONV) Additional Past Anesthesia/Blood Transfusion Reaction / Comment(s): past blood transfusion-no reaction. Date of Last Stent Placement:: 2019 Smoking Status: Current every day smoker - Past Family History Father Family Medical History: No Reported History Medications and Allergies Home Medications Medication Instructions Recorded Confirmed Type RX: Pregabalin [Lyrica] 150 mg PO BID 09/24/17 12/27/23 History RX: oxyCODONE-APAP 7.5-325MG 1 tab PO TID PRN 03/23/20 12/27/23 History [Percocet 7.5-325 mg] RX: lamoTRIgine [LaMICtal] 200 mg PO HS #30 tablet 04/05/20 12/27/23 Rx RX: Budesonide-Formot 160-4.5 Mcg 2 puff INHALATION BID 03/02/22 12/27/23 History [Symbicort 160-4.5 Mcg Inhaler] RX: QUEtiapine [SEROquel] 50 mg PO HS 03/02/22 12/27/23 History RX: QUEtiapine [SEROquel] 50 mg PO HS PRN 12/18/22 12/27/23 History RX: Aspirin 81 mg PO DAILY #90 tab 12/22/22 12/27/23 Rx RX: Atorvastatin [Lipitor] 80 mg PO HS #90 tab 12/22/22 12/27/23 Rx Tirzepatide [Mounjaro] 5 mg SQ SA 12/22/23 12/27/23 History Allergies Allergy/AdvReac Type Severity Reaction Status Date / Time ampicillin AdvReac Nausea & Verified 12/27/23 08:48 Vomiting & Diarrhea fluoxetine [From Prozac] AdvReac SUICIDAL Verified 12/27/23 08:48 morphine AdvReac Nausea & Verified 12/27/23 08:48 Vomiting Physical Exam Vitals: Vital Signs Temp Pulse Resp BP Pulse Ox 12/27/23 10:41 88 16 119/56 98 12/27/23 08:50 98.0 F 75 16 132/58 97 Intake and Output 12/26/23 12/27/23 12/27/23 22:59 06:59 14:59 Other: Weight 62.4 kg Results Coagulation 12/27/23 Range/Units 09:09 PT 10.3 (10.0-12.5) sec APTT 26.4 (22.0-30.0) sec Current Medications Generic Name Dose Route Start Last Admin Trade Name Ko PRN Reason Stop Dose Admin Fentanyl Citrate 50 mcg 12/27/23 06:11 Fentanyl (Pf) 50 Mcg/Ml 2 Ml Amp IV 12/28/23 06:12 Q3M PRN Phase I - Pain Control Cefazolin Sodium 2 gm/ Sodium 50 mls @ 100 mls/hr 12/27/23 05:00 Chloride IVPB 12/27/23 23:00 ONCE PRN pre-op Tranexamic Acid/Sodium 100 mls @ 200 mls/hr 12/27/23 05:00 Chloride 1,000 mg/ IV Solution IVPB 12/27/23 23:00 ONCE PRN Pre-Op Tranexamic Acid/Sodium 100 mls @ 200 mls/hr 12/27/23 05:00 Chloride 1,000 mg/ IV Solution IVPB 12/27/23 23:00 ONCE PRN Pre-Op Lactated Ringer's 1,000 mls @ 20 mls/hr 12/27/23 06:11 12/27/23 09:23 Lactated Ringers IV 0 mls .Q24H JULIETA Administration Lidocaine HCl 0.1 ml 12/27/23 06:11 Lidocaine 1% (10mg/Ml) For Iv Start INTRADERMA PER PROTOCOL PRN IV Start Intake and Output 12/26/23 12/27/23 12/27/23 22:59 06:59 14:59 Other: Weight 62.4 kg Patient Weight 12/28/23 06:59 Weight 62.4 kg
[2023-12-27] MEDS ORDERED: ceFAZolin 3,000 MG in SODIUM CHLORIDE 0.9% IRRIGATIO 3,000 ML IRRIGATION ONE (12:30)
[2023-12-27] MEDS ORDERED: THROMBIN (BOVINE) 5,000 UNIT VIAL TOPICAL ONE (12:30)
[2023-12-27] MEDS ORDERED: GELATIN SPONGE,ABSORB (LARGE) 1 EACH SPONGE TOPICAL ONE (12:30)
[2023-12-27] MEDS ORDERED: GENTAMICIN 80 MG in SODIUM CHLORIDE 0.9% IRRIGATIO 3,000 ML IRRIGATION ONE (12:30)
[2023-12-27] MEDS ORDERED: VANCOMYCIN 1,000 MG VIAL MISCELLANE ONE (13:50)
--- NOTE | 2023-12-27 14:38 | XR ---
Fluoroscopy History: ANTERIOR LONGITUDINAL LIGAMENT OSSIFICATION CERVICAL Posterior cervical decompression C2-T2 with [place]. 14 images saved. 45 sec fluoro time. .7646 DA P.
[2023-12-27] MEDS ORDERED: SENNOSIDES-DOCUSATE SODIUM 1 EACH TAB PO PRN (14:39)
[2023-12-27] MEDS ORDERED: MAGNESIUM HYDROXIDE 2,400 MG/30 ML CUP PO PRN (14:39)
[2023-12-27] MEDS ORDERED: oxyCODONE-APAP 7.5-325MG 1 EACH TAB PO PRN (14:42)
[2023-12-27] MEDS ORDERED: HYDROmorphone 0.5 MG/0.5 ML SYRINGE IVP ONE ×3 (15:03→16:24)
--- NOTE | 2023-12-27 15:05 | FL ---
Fluoroscopy History: ANTERIOR LONGITUDINAL LIGAMENT OSSIFICATION CERVICAL Posterior cervical decompression C2-T2 with [place]. 14 images saved. 45 sec fluoro time. .7205 DA P.
[2023-12-27] MEDS: PREGABALIN 75 MG CAP PO SCH ×2 (17:34→21:00)
[2023-12-27] MEDS: ACETAMINOPHEN TAB 325 MG TAB PO SCH ×2 (17:46→23:28)
[2023-12-27] MEDS: ONDANSETRON 4 MG/2 ML VIAL IVP PRN (17:47)
[2023-12-27] MEDS ORDERED: QUEtiapine 50 MG TAB PO PRN (17:58)
[2023-12-27] MEDS: IPRATROPIUM-ALBUTEROL 3 ML NEB INHALATION SCH (20:17)
[2023-12-27] MEDS: QUEtiapine 50 MG TAB PO SCH (20:56)
[2023-12-27] MEDS: lamoTRIgine 100 MG TAB PO SCH (20:56)
[2023-12-27] MEDS: ATORVASTATIN 80 MG TAB PO SCH (20:56)
[2023-12-27] MEDS: HYDROmorphone 1 MG/ML 1 ML SYRINGE IVP PRN (21:00)
[2023-12-27] MEDS: CYCLOBENZAPRINE 5 MG TAB PO PRN (23:28)
[2023-12-28] MEDS: HYDROmorphone 1 MG/ML 1 ML SYRINGE IVP PRN ×6 (01:39→20:11)
[2023-12-28] MEDS: ONDANSETRON 4 MG/2 ML VIAL IVP PRN ×2 (01:47→11:28)
--- NOTE | 2023-12-28 04:10 | CONS ---
CONSULTATION HISTORY OF PRESENT ILLNESS: Cardiology saw the patient. A stress echo shows moderate-size reversible perfusion defect in the anterolateral. Heart catheterization showed a patent stent to the LAD. She had had critical stenosis of the ostial OM PCI. Perioperative neck surgery, and given clearance to her aspirin, statin. Again today before surgery, cleared her for the surgery. Left anterior fascicular block unchanged. REVIEW OF SYSTEMS: 14-point review of systems is negative, otherwise assess as preop evaluation with history of coronary artery disease for cervical surgery that she underwent, cleared from a cardiology standpoint. HOME MEDICINES: Have been restarted include: 1. Percocet. 2. Seroquel. 3. Aspirin. 4. Lipitor. 5. . 6. Lamictal. 7. Symbicort. ALLERGIES: Ampicillin morphine. PHYSICAL EXAMINATION: VITAL SIGNS: Temperature 98, pulse 75, respiratory rate 16 to 18, blood pressure 130s over 60s, and O2 97% to 98%. CARDIOVASCULAR: S1, S2. LUNGS: Transmitted upper breath sounds. GI: Soft. HEMATOLOGY: Negative Homans. PSYCH: Fair mood and affect. postop care cervical surgery. Prognosis guarded. Please see further orders. MMODL / IJN: [id number] /
[2023-12-28] MEDS: ACETAMINOPHEN TAB 325 MG TAB PO SCH ×4 (05:35→23:58)
[2023-12-28] MEDS: LACTATED RINGERS 1,000 ML IV SCH (05:46)
[2023-12-28] MEDS: oxyCODONE-APAP 10-325MG 1 EACH TAB PO PRN ×2 (08:12→14:09)
[2023-12-28] MEDS: ASPIRIN 81 MG PO SCH (08:14)
[2023-12-28] MEDS: PREGABALIN 75 MG CAP PO SCH ×3 (08:14→20:11)
[2023-12-28 09:03] LABS: Basophils # (A) 0.02 X 10*3/uL (0.00-0.10); Basophils % (A) 0.1 %; Eosinophils # (A) 0 X 10*3/uL (0.04-0.35); Eosinophils % (A) 0 %; HCT 35.2 % (37.2-46.3); HGB 11.3 g/dL (12.0-15.0); Lymphocytes # (A) 0.67 X 10*3/uL (0.90-5.00); Lymphocytes % (A) 4.4 %; MCH 27.5 pg (27.0-32.0); MCHC 32.1 g/dL (32.0-37.0); MCV 85.6 FL (80.0-97.0); Mean Platelet Volume 10.6 FL (9.5-12.2); Monocytes # (A) 1.05 X 10*3/uL (0.20-1.00); Monocytes % (A) 6.8 %; NRBC Per 100 WBC 0 X 10*3/uL (0.00-0.01); Neutrophils # (A) 13.53 X 10*3/uL (1.80-7.70); Neutrophils % (A) 88.2 %; Platelet Count 228 X 10*3/uL (140-440); RBC 4.11 X 10*6/uL (4.10-5.20); RDW 14.6 % (11.5-14.5); WBC 15.34 X 10*3/uL (4.50-10.00)
[2023-12-28 09:42] LABS: BUN/Creat Ratio 11.12 Ratio (12.00-20.00); Blood Urea Nitrogen 8.9 mg/dL (9.0-27.0); Calcium 8.2 mg/dL (8.7-10.3); Carbon Dioxide 25.4 mmol/L (21.6-31.8); Chloride 102 mmol/L (96-109); Glucose 182 mg/dL (70-110); Sodium 138 mmol/L (135-145)
[2023-12-28] MEDS: IPRATROPIUM-ALBUTEROL 3 ML NEB INHALATION SCH ×4 (09:51→21:09)
--- NOTE | 2023-12-28 09:54 | CT ---
EXAMINATION TYPE: CT CervThoracic spine wo con DATE OF EXAM: 12/28/2023 COMPARISON: Cervical spine radiograph 12/27/2023, CT cervical spine 04/16/2022, MRI cervical spine 08/29 HISTORY: post cervical fusion C2-T2 CT DLP: 1856 mGycm Automated exposure control for dose reduction was used. Unenhanced CT of the cervicothoracic spine was performed with bone and soft tissue window settings sanchez bmitted. Coronal and sagittal reconstruction is obtained. Postoperative changes of anterior cervical fusion involving C4-C6 redemonstrated. Hardware appears in tact and the parotid position. Postsurgical changes from posterior fusion C2-T2 with laminectomy defe cts. Hardware appears intact with appropriate alignment. There is surrounding soft tissue gas extendi ng into the spinal canal. Surgical drain identified remaining surgical space at the level of C6-C7. S kin shannon posteriorly.. Large anterior osteophytes identified at C2-C3 and C3-C4. Artifact from joey dware limits evaluation. Postoperative alignment is within normal limits. Remaining levels are within normal limits. Right IJ central venous catheter partially visualized. No sizable organized fluid col lection identified. IMPRESSION: Postoperative changes of posterior cervical thoracic C2-T2 fusion with limiting streak ar tifact. Postoperative alignment is felt to be within normal limits.
--- NOTE | 2023-12-28 09:58 | P.PN ---
Subjective Progress Note Date: 12/28/23 Principal diagnosis: Cervical spondylotic myelopathy; left upper extremity weakness; OALL; status post C4 to C7 ACDF Patient was seen at bedside this morning lying semirecumbent position in bed with dressing present over posterior cervical spine and drain in place. Patient just to soft c-collar on while resting in bed. Still waiting on hard cervical collar to arrive. Patient says she has not been up since surgery was performed yesterday. Joseph is in place. Patient says normally she lives home alone sometimes her nephew is there to help her. Patient says she does not use a walker or cane at baseline. She says she ambulates independently. Patient states she is still having pain to the neck at this time and some weakness in the left upper extremity. Patient denies any other issues at this time. Objective - Vital Signs Vital signs: Vital Signs Temp 99.4 F 12/28/23 07:34 Pulse 85 12/28/23 07:34 Resp 16 12/28/23 07:34 BP 123/55 12/28/23 07:34 Pulse Ox 97 12/28/23 07:34 FiO2 Intake & Output 12/27/23 12/28/23 12/28/23 18:59 06:59 18:59 Intake Total 2122 940 Output Total 340 700 Balance 1782 240 Weight 62.4 kg Intake: IV 2102 Intake, IV Titration 20 340 Amount Lactated Ringers 1,000 ml 20 240 @ 20 mls/hr IV .Q24H [facility] Rx#:[id number] ceFAZolin 2 gm In Sodium 100 Chloride 0.9% 50 ml @ 100 mls/hr IVPB Q8H [facility] Rx#: [id number] Oral 600 Output: Urine 240 700 Estimated Blood Loss 100 Other: Voiding Method Indwelling Catheter Indwelling Catheter - Exam Inspection: Dressing does appear to be somewhat saturated at the very distal end. Minimal spotting throughout rest of dressing. Maryjo appear to be well aligned intact over incision. Drain appears to be present with very little if any output. Sensation: Equal, symmetric, bilaterally intact throughout the upper and lower extremities. Palpation: Moderate tenderness to patient diffusely throughout posterior cervical spine incision. Nontender to palpation throughout rest exam Range of motion: Full range of motion throughout bilateral lower desires exam. Full range of motion throughout left and right upper extremity and wrist flexion and extension and elbow flexion/extension. Limited range of motion in bilat shoulder secondary to pain to the neck and weakness. Motor: 4/5 in all major motor groups in right upper extremity and bilateral lower extremities on exam. 4-/5 in all major motor to left upper extremity on exam. Neurovascular: Radial pulse intact, 2+ bilaterally. Cap refill under 3 seconds in digits of upper extremities. Special tests: Negative Homans bilaterally. Negative Teofilo bilaterally. - Labs CBC & Chem 7: 12/28/23 06:03 12/28/23 06:03 Labs: Abnormal Lab Results - Last 24 Hours (Table) 12/28/23 12/28/23 Range/Units 06:03 06:03 WBC 15.34 H (4.50-10.00) X 10*3/uL Hgb 11.3 L (12.0-15.0) g/dL Hct 35.2 L (37.2-46.3) % RDW 14.6 H (11.5-14.5) % Immature Gran # 0.07 H (0.00-0.04) X 10*3/uL Neutrophils # 13.53 H (1.80-7.70) X 10*3/uL Lymphocytes # 0.67 L (0.90-5.00) X 10*3/uL Monocytes # 1.05 H (0.20-1.00) X 10*3/uL Eosinophils # 0 L (0.04-0.35) X 10*3/uL BUN 8.9 L (9.0-27.0) mg/dL BUN/Creatinine Ratio 11.12 L (12.00-20.00) Ratio Glucose 182 H (70-110) mg/dL Calcium 8.2 L (8.7-10.3) mg/dL Assessment and Plan Assessment: 1. Cervical spondylotic myelopathy; left upper extremity weakness; OALL; status post C4 to C7 ACDF - Postop day 1 status post C2-T2 posterior cervical decompression and fusion Plan: 1. Cervical spondylotic myelopathy; left upper extremity weakness; OALL; status post C4 to C7 ACDF - surgery performed yesterday, 12/27/2023 C2-T2 posterior cervical decompression and fusion. Patient stable at bedside this morning with dressing and drain placed over posterior cervical spine. Plan for dressing change tomorrow and possible drain removal. Awaiting a hard cervical collar at this time. Case management working on this. Continue with pain medication as needed. Weight-bear as tolerated with walker necessary. Okay to discontinue Joseph once patient is up and about later today. Discharge to [facility] versus home with home care in the next few days. We will continue to follow patient during stay in the hospital. 2. Appreciate medical management 3. Pain management - oxycodone; Lyrica; Flexeril 4. DVT prophylaxis - mechanical 5. GI prophylaxis - senna; milk of magnesia 6. PT/OT - hard c-collar on when up and about. Weight-bear as tolerated with walker as needed 7. Encourage incentive spirometer use 8. Discharge planning - Discharge to [facility] versus home with home care in the next few days Time with Patient: Less than 30
[2023-12-28] MEDS: QUEtiapine 50 MG TAB PO SCH (20:11)
[2023-12-28] MEDS: lamoTRIgine 100 MG TAB PO SCH (20:11)
[2023-12-28] MEDS: ATORVASTATIN 80 MG TAB PO SCH (20:11)
[2023-12-29] MEDS: HYDROmorphone 1 MG/ML 1 ML SYRINGE IVP PRN ×3 (00:24→10:47)
[2023-12-29] MEDS: oxyCODONE-APAP 10-325MG 1 EACH TAB PO PRN ×3 (02:20→15:43)
[2023-12-29] MEDS: ACETAMINOPHEN TAB 325 MG TAB PO SCH ×4 (05:42→23:31)
[2023-12-29] MEDS: LACTATED RINGERS 1,000 ML IV SCH (05:56)
--- NOTE | 2023-12-29 06:32 | P.OP ---
Date of Procedure: 12/27/23 Preoperative Diagnosis: 1. Cervical stenosis 2. Cervical spondylosis 3. Myelopathy 4. Neck pain Postoperative Diagnosis: 1. Cervical stenosis 2. Cervical spondylosis 3. Myelopathy 4. Neck pain Procedure(s) Performed: C2-T2 posteriolateral instrumented arthrodesis C2-T2 instrumentation C2-C7 bilateral laminectomy, facetectomy and foraminotomy use of IONM Implants: Cj posterior cervical instrumentation Magnatos Autograft Anesthesia: GETA Surgeon: Trve Sands Wax Pourer #1: Oskar Garcia (Was present and assisted with entire case from start to finish) Estimated Blood Loss (ml): 150 IV fluids (ml): 1,100 Urine output (ml): 250 Pathology: none sent Condition: stable Disposition: PACU Indications for Procedure: Ms. Leyva is presenting for evaluation of neck and left upper extremity pain, left upper extremity numbness and tingling. It was my pleasure to have seen and examined Ms. Leyva. In our visit today we have had a chance to go over subjective complaints, physical examination findings and treatments including the natural course history without intervention and various interventional options. The patients imaging demonstrates: MRI inhckozz50/13/2023 of CervicalSpine completed at [facility]:severe spondylotic changes to the cervical spine with severe stenosis at each level C2-7. There is disc bulging, facet hypertrophy as well as arthrosis. No fractures noted. No lesions noted at this time. MRI finkiigc52/13/2023 of Left Shoulder completed at [facility]:rotator cuff tendinosis noted with some fraying on the bursal side. There is spurring underneath the AC joint which shows OA changes. There is some OA changes noted of the GH area which is intact as well. No lesions. No fracture. XRay Cervical multiview (Lateral, Flexion, Extension, AP, Oblique) 6 views taken at [facility] on 08/25/23 of Cervical Spine: - Re-reviewed with the patient in office today. No fracture. No lesions. maintained alignment. No instability. On physical exam, Ms. Leyva demonstrates: A continued ache-like pain throughout the posterior aspect of the neck that radiates down into left shoulder and upper extremity with a sharp, shooting quality. The patient notes an intermittent stabbing pain throughout the neck after any quick or repetitive neck movements. The patient states that her left upper extremity pain is associated with num bness and tingling. The patient states that her neck and shoulder symptoms are exacerbated by prolonged activity, which makes it difficult for her to complete many of her activities of daily living. The patient notes that she had fallen at home in July 2023, which exacerbated her current symptoms. The patient reports experiencing moderate to severe sleep disturbances related to her ongoing pain and associated symptoms. I have explained to the patient that as their condition progresses it will cause further neurological deficits and eventual paralysis. Based on the patients i maging, physical exam, and the rapid progression and disabling nature of their symptoms, at this time I recommend surgery in the form of a: C2-T2 decompression and fusion. I discussed the risk and benefits of this procedure at length with Jc Dengjessica. The patient agreed to considered pursuing the procedure above mentioned. Prior to surgery, she should follow up with her PCP (Cardio, ID, IM etc) for clearance. Questions were invited and answered, and the patient wishes to proceed as outlined below. Currently, I am recommendin.C2-T2 decompression and fusion Description of Procedure: C2-T2 decompression and fusion The patient was seen and examined in the preoperative area. All preoperative protocols were followed. Informed consent was obtained, risks and benefits of the procedure were discussed at length. Risks including bleeding infection damage to the surrounding tissue and risk of reoperation were discussed with the patient. Risk of anesthesia up to and including was discussed with the patient. These are outlined in the risk review. They were willing to accept these risks and all of the risks of surgery. The patient was given a weight- based dose of antibiotics in the form of 2 g Ancef. The patient was seen and evaluated by the anesthesia team who deemed them fit for surgery. The site was marked, the patient was willing to proceed with the procedure. The patient was transferred to the operative suite by the Department of an esthesia. They were then drifted off to sleep by the department anesthesia and GETA was performed. The patient tolerated this well. pre-positioning motors were obtained.Joseph in place from the floor. Once confirmation of lines and ventilation Lorenz head clamp was placed on the patient and secured and the patient was transferred to a [prone Rishabh table very carefully] with the Lorenz hot head machine operator the head was secured and placed into an optimal position x- ray confirmed this position. Post-positioning motors remained stable. All bony prominences including wrists, elbows, axilla, chest, hips, and thighs, and feet were padded very well. Special attention was paid to the genitalia and these were padded accordingly. SCDs were placed on bilateral lower extremities and were connected. Arms were well padded and placed tucked at his side thumbs down. Shoulders were gently taped down to the table.. Once in position, again we confirmed good ventilation capabilities and that lines were running appropriately. The patient's posterior cervical spine was then exposed. 1010s were placed outlining the incision site. Standard alcohol was used to clean the incision site and allowed to dry. C-arm was used to biomark the patient and confirm level for incision which was marked with a skin marker. Operative briefing was performed with all teams and everyone in agreement to proceed. The patient was then prepped and draped in a normal sterile fashion. Timeout was then performed and all parties were in agreement with the procedure to be performed. Midline skin incision made over the previously bio-marked area and dissection taken down midline to the SP of C2-T2. Subperiosteal dissection taken out over the lamina and lateral masses of C2-C7 and TVP of T1 and T2. Once exposure co mplete, the wound was irrigated and the C-arm brought in for imaging. A penfield 4 was used to bluntly dissect the medial border of C2 pedicle and placed for guidance. C arm used and a marla hole made for the starting point. The C2 pedicle was then drilled in 2 mm increments to 16 mm using a ball tip feeler in between each drill session to make sure within the 4 maria with a good bottom. Once this was accomplished a screw was selected and placed under lateral fluoroscopic guidance. Screw had a good purchase. This was then repeated on the contralateral side. AP confirmed good placement of both screws. We then proceeded to the T1 and T2 screws bilaterally. A high speed marla was used to remove the facet joint of C7 and to create a starting point for T1 and similarly, T1 facet for T2. Pedicle finder was then passed into T1 and T2 and imaging taken to confirm placement this was then removed and a tap placed ball-tipped probe was then placed and 4 maria of pedicle fell with good bottom. Screw was then measured and placed intoT1 and T2. This is repeated on the contralateral side. Imaging confirmed good placement of all 4 thoracic screws. The wound was then irrigated. Lateral mass screws were then drilled to 12 mm and placed at each level from C3-6. Each had a good bite. Rods were then sized and selected and cut to length. They were bent accordingly and lordosis and to fit the occiput plate. These were then secured into C2 bilaterally and then sequentially reduced into lateral mass screws and T1 and T2 screws without issues. All set screws were placed and were then final tightened and the position. Bilateral laminectomy, facetectomy and foraminotomies were then done from C2-T1 using high speed marla, kerrison rongeur and upbiting curette. Bilateral lamino daniel troughs were made with marla followed by curette to release ligamentum. Rongure was then used to gently remove the lamina and facets posteriorly without issues. Meticulous hemostasis was performed after.. Motors were run before and after decompression and they remain stable. Good pulsations of the cord were noted after decompression. Foraminotomies then performed with kerrison rongeur and clean up of the laminectomy site. The wound was then copiously irrigated with 3 L of Ancef irrigation followed by 3 L of gentamicin irrigation followed by 3 L of normal sterile saline. Facet joints were drilled at each level to allow for fusion Surgicel was placed over the dura. MagnetOs were placed in the posterior lateral gutters along with autograft.. This was impacted into position for fusion. 2 g of powdered vancomycin was then placed deep within the wound and a deep drain was placed. We then proceeded with layered closure first in the deep fascia with #1 PDS then in the deep fascia followed by a running #1 stratafix. 0 Vicryl was used in the deep subq fascia and an 0 PDS stratafix used in the subdermal layer. Skin shannon then approximated skin edges. The wound edges approximated very well. The wound was then cleaned and dressed sterilely with an operative foam dressing 4 x 4 and Tegaderm. The drain had good suction. The patient was placed in a hard cervical collar. The patient was transferred back to their hospital bed atraumatically. Lorenz head clamp was removed and pin sites were clear. Drain continued to hold suction. Patient was placed in a hard collar Patient was then awakened and extubated by the department of anesthesia having tolerated the procedure very well with no complications. They were transferred to the postoperative care unit in stable condition.
[2023-12-29] MEDS: IPRATROPIUM-ALBUTEROL 3 ML NEB INHALATION SCH ×4 (07:58→20:11)
[2023-12-29] MEDS: PREGABALIN 75 MG CAP PO SCH ×3 (09:33→20:39)
[2023-12-29] MEDS: ASPIRIN 81 MG PO SCH (09:34)
--- NOTE | 2023-12-29 15:47 | P.PN ---
Subjective Progress Note Date: 12/29/23 Principal diagnosis: 1. Cervical spondylotic myelopathy 2. Left upper extremity weakness 3. OALL 4. s/p C4-7 ACDF Patient seen and examined this morning. Patient resting comfortably in bed. Patient does have complaint of pain in the posterior region of the cervical spine. Informed staff that patient is requesting pain medication at this time. Patient reports that she has not been out of bed since procedure. [place] hard collar has been delivered to room and is at bedside. Educated patient on the importance of getting up out of bed for her recovery, patient verbalizes understanding. Surgical incision to the posterior cervical spine, dressing is clean dry and intact with Hemovac present. Continue to encourage patient to us e incentive spirometer. Germain catheter may be discontinued today. No acute concerns. Objective - Vital Signs Vital signs: Vital Signs Temp 98.7 F 12/29/23 07:40 Pulse 82 12/29/23 07:40 Resp 18 12/29/23 07:40 BP 137/61 12/29/23 07:40 Pulse Ox 95 12/29/23 07:40 FiO2 Intake & Output 12/28/23 12/29/23 12/29/23 18:59 06:59 18:59 Intake Total 600 Output Total 1050 500 Balance -1050 100 Intake: Oral 600 Output: Drainage 0 0 Back 0 0 Urine 1050 500 Other: Voiding Method Indwelling Catheter Indwelling Catheter - Exam Physical Examination General: The patient is awake and alert, in no acute distress Skin: Skin is warm and dry with no obvious rashes or lesions. Surgical incision to the posterior cervical spine, dressing is clean dry intact with Hemovac present. Eye: Pupils are equal, round and reactive to light, extra-ocular movements are intact; there is normal conjunctiva bilaterally. Neck: The neck is Moderate tenderness around incision, range of motion is limited due to surgical procedure. Cardiovascular: There is a regular rate and rhythm. No murmur, rub or gallop is appreciated. Respiratory: Lungs are clear to auscultation, respirations are non-labored, breath sounds are equal. Gastrointestinal: Soft, non-distended, non-tender abdomen. Back: There is no tenderness to palpation in the midline, paralumbar, parathoracic or buttocks region. There is no obvious deformity . Musculoskeletal: ROM limited secondary to pain and stiffness from surgical procedure. Muscle strength in all major muscle groups of bilateral upper extremities 4/5, bilateral lower extremities 4/5. Neurological: CN 2-12 intact. There are no obvious motor or sensory deficits. Movement and coordination equal and intact. Sensory exam to light touch intact C5-T1 and intact from L2-S1. Reflexes 2/4 in bilateral upper and lower extremities. Negative Hoffmans, babinski, and clonus signs. Psychiatric: Cooperative, appropriate mood & affect, normal judgment. - Labs CBC & Chem 7: 12/28/23 06:03 12/28/23 06:03 Labs: Abnormal Lab Results - Last 24 Hours (Table) 12/28/23 Range/Units 06:03 BUN 8.9 L (9.0-27.0) mg/dL BUN/Creatinine Ratio 11.12 L (12.00-20.00) Ratio Glucose 182 H (70-110) mg/dL Calcium 8.2 L (8.7-10.3) mg/dL Assessment and Plan Assessment: Postop day 2: C2-T2 decompression and fusion 1. Cervical spondylotic myelopathy 2. Left upper extremity weakness 3. OALL 4. s/p C4-7 ACDF Plan: -Appreciate sap consultant and team management. -Activity: Ambulate QID, OOB all meals, up and about, limit lifting bending twisting to less than 5 lbs. Use walker or cane if needed for stability. -Daily PT/OT, increase ambulation strength and balance. - Hard cervical collar at all times, may remove for showers. -Pain control: Adequate at this time -Meds: reviewed -GI ppx: senna, Miralax -DC germain -DVT PPX: Heparin -Hygiene: Shower today. Maintain dressing clean and dry. -Drains: Maintain for now. Continue to monitor and record output q shift. -Encourage IS 10x/hr -Dispo: clinically pending *I reviewed and discussed this case with my attending Dr. Sands, whom has reviewed this chart and films and is in agreement with assessment and plan of care as outlined above. I have personally seen and examined the patient, performed the documentation and the assessment and plan as written. Number of minutes spent on the visit:20m.
[2023-12-29] MEDS: HYDROmorphone 0.5 MG/0.5 ML SYRINGE IVP PRN ×2 (17:48→21:44)
[2023-12-29] MEDS: ATORVASTATIN 80 MG TAB PO SCH (20:38)
[2023-12-29] MEDS: lamoTRIgine 100 MG TAB PO SCH (20:39)
[2023-12-29] MEDS: QUEtiapine 50 MG TAB PO SCH (20:39)
--- NOTE | 2023-12-30 02:27 | PN ---
PROGRESS NOTE SUBJECTIVE: Status post cervical surgery. The patient's breathing improved. She is on nebulizer medications. OBJECTIVE: CARDIOVASCULAR: S1, S2. LUNGS: Clear. GI: Soft. HEMATOLOGY: Negative Homans. PSYCH: Fair mood and affect. She is on Seroquel, Percocet, Lipitor, Flexeril, DuoNeb. Prognosis guarded. Continue her current treatment. Saturating 90% on room air to 92%, blood pressure 120s over 60s, temp 98.4, pulse 80s to 100, respiratory rate 16 to 18. Continue current treatment. PT, OT. Prognosis guarded. MMODL / IJN: [id number] /
[2023-12-30] MEDS: HYDROmorphone 0.5 MG/0.5 ML SYRINGE IVP PRN (03:21)
[2023-12-30 04:23] LABS: Basophils % (A) 0 %; Eosinophils # (A) 0.2 k/uL (0-0.7); Eosinophils % (A) 2 %; HCT 33.5 % (34.0-46.0); HGB 11.1 gm/dL (11.4-16.0); Lymphocytes # (A) 1.3 k/uL (1.0-4.8); Lymphocytes % (A) 15 %; MCH 29.1 pg (25.0-35.0); MCHC 33.2 g/dL (31.0-37.0); MCV 87.6 fL (80.0-100.0); Mean Platelet Volume 8.2; Monocytes # (A) 0.5 k/uL (0-1.0); Monocytes % (A) 5 %; Neutrophils # (A) 6.8 k/uL (1.3-7.7); Neutrophils % (A) 77 %; Platelet Count 185 k/uL (150-450); RBC 3.82 m/uL (3.80-5.40); RDW 14.1 % (11.5-15.5); WBC 8.8 k/uL (3.8-10.6)
[2023-12-30 04:52] LABS: African American GFR (CKD) >90 (>60 ml/min/1.73 sqM); Anion Gap 2 mmol/L; Blood Urea Nitrogen 17 mg/dL (7-17); Calcium 8.7 mg/dL (8.4-10.2); Carbon Dioxide 32 mmol/L (22-30); Chloride 102 mmol/L (98-107); Glucose 174 mg/dL (74-99); Non-African American GFR(CKD) >90 (>60 ml/min/1.73 sqM); Potassium 3.9 mmol/L (3.5-5.1); Sodium 136 mmol/L (137-145)
[2023-12-30] MEDS: LACTATED RINGERS 1,000 ML IV SCH (05:13)
[2023-12-30] MEDS: ACETAMINOPHEN TAB 325 MG TAB PO SCH ×3 (05:40→17:27)
[2023-12-30] MEDS: ASPIRIN 81 MG PO SCH (07:56)
[2023-12-30] MEDS: PREGABALIN 75 MG CAP PO SCH ×3 (07:56→20:34)
[2023-12-30] MEDS: HYDROmorphone 1 MG/ML 1 ML SYRINGE IVP PRN (08:00)
[2023-12-30] MEDS: CYCLOBENZAPRINE 5 MG TAB PO PRN (08:00)
--- NOTE | 2023-12-30 08:12 | P.PN ---
Subjective Progress Note Date: 12/30/23 Principal diagnosis: 1. Cervical spondylotic myelopathy 2. Left upper extremity weakness 3. OALL 4. s/p C4-7 ACDF Patient seen and examined this morning. Patient resting comfortably in bed. Patient does have complaint of pain in the posterior region of the cervical spine. Patient reports that she did sit at edge of bed yesterday and tolerated activity ok. Assisted pateint to bedisde this morning to change dressing and remove drain. Surgical incision to the posterior cervical spine is well approximated with shannon intact. Mild sangeous drainage from mid incision, New surgical dressing applied. Hemovac was loose without measurable output. Drain has been removed. Patient assisted to chair at bedside and instructed to keep Roxana c-collar on at all times. She may remove for showers. Continue to encourage patient to use incentive spirometer. No acute concerns. Objective - Vital Signs Vital signs: Vital Signs Temp 98.7 F 12/30/23 01:56 Pulse 72 12/30/23 01:56 Resp 16 12/29/23 13:42 BP 123/76 12/30/23 01:56 Pulse Ox 95 12/30/23 01:56 FiO2 Intake & Output 12/29/23 12/30/23 12/30/23 18:59 06:59 18:59 Intake Total 240 Output Total 800 1490 Balance -560 -1490 Intake: Oral 240 Output: Drainage 0 0 Back 0 0 Urine 800 1000 Uretheral (Germain) 500 Post Void Residual 490 Other: Voiding Method Indwelling Catheter - Exam Physical Examination General: The patient is awake and alert, in no acute distress Skin: Skin is warm and dry with no obvious rashes or lesions. Surgical incision to the posterior cervical spine is well approximated with shannon intact. Mild sangeous drainage from mid incision, New surgical dressing applied. Hemovac was loose without measurable output. Drain has been removed. Eye: Pupils are equal, round and reactive to light, extra-ocular movements are intact; there is normal conjunctiva bilaterally. Neck: The neck is Moderate tenderness around incision, range of motion is limited due to surgical procedure. Cardiovascular: There is a regular rate and rhythm. No murmur, rub or gallop is appreciated. Respiratory: Lungs are clear to auscultation, respirations are non-labored, breath sounds are equal. Gastrointestinal: Soft, non-distended, non-tender abdomen. Back: There is no tenderness to palpation in the midline, paralumbar, parathoracic or buttocks region. There is no obvious deformity . Musculoskeletal: ROM limited secondary to pain and stiffness from surgical procedure. Muscle strength in all major muscle groups of bilateral upper extremities 4/5, bilateral lower extremities 4/5. Neurological: CN 2-12 intact. There are no obvious motor or sensory deficits. Movement and coordination equal and intact. Sensory exam to light touch intact C5-T1 and intact from L2-S1. Reflexes 2/4 in bilateral upper and lower extremities. Negative Hoffmans, babinski, and clonus signs. Psychiatric: Cooperative, appropriate mood & affect, normal judgment. - Labs CBC & Chem 7: 12/30/23 03:46 12/30/23 03:46 Labs: Abnormal Lab Results - Last 24 Hours (Table) 12/30/23 12/30/23 Range/Units 03:46 03:46 Hgb 11.1 L (11.4-16.0) gm/dL Hct 33.5 L (34.0-46.0) % Sodium 136 L (137-145) mmol/L Carbon Dioxide 32 H (22-30) mmol/L Glucose 174 H (74-99) mg/dL Assessment and Plan Assessment: Postop day 3: C2-T2 decompression and fusion 1. Cervical spondylotic myelopathy 2. Left upper extremity weakness 3. OALL 4. s/p C4-7 ACDF Plan: -Appreciate homemaking rehabilitation consultant and team management. -Activity: Ambulate QID, OOB all meals, up and about, limit lifting bending twisting to less than 5 lbs. Use walker or cane if needed for stability. -Daily PT/OT, increase ambulation strength and balance. - Hard cervical collar at all times, may remove for showers. -Pain control: Adequate at this time -Meds: reviewed -GI ppx: senna, Miralax -DC germain -DVT PPX: Heparin -Hygiene: Shower today. Maintain dressing clean and dry, change dressing as needed. -Encourage IS 10x/hr -Dispo: Patient is cleared from an Orthopedic standpoint for discharge to [facility] when medically stable. *I reviewed and discussed this case with my attending Dr. Sands, whom has reviewed this chart and films and is in agreement with assessment and plan of care as outlined above. I have personally seen and examined the patient, performed the documentation and the assessment and plan as written. Number of minutes spent on the visit:20m.
[2023-12-30] MEDS: IPRATROPIUM-ALBUTEROL 3 ML NEB INHALATION SCH ×4 (08:35→19:30)
[2023-12-30] MEDS: oxyCODONE-APAP 10-325MG 1 EACH TAB PO SCH ×3 (12:58→20:34)
[2023-12-30] MEDS: SENNOSIDES-DOCUSATE SODIUM 1 EACH TAB PO SCH (12:58)
[2023-12-30] MEDS: ATORVASTATIN 80 MG TAB PO SCH (20:34)
[2023-12-30] MEDS: lamoTRIgine 100 MG TAB PO SCH (20:34)
[2023-12-30] MEDS: QUEtiapine 50 MG TAB PO SCH (20:34)
--- NOTE | 2023-12-30 23:31 | PN ---
PROGRESS NOTE SUBJECTIVE: This is a 68-year-old white female, status post cervical surgery, cervical stenosis surgery. She is much better. Her pain is under better control. She is up ambulating. She is on breathing treatments. Prognosis guarded. OBJECTIVE: PSYCH: Fair mood and affect. NEUROLOGIC: Cranial nerves intact. Continue current treatment. Possible discharge home soon in a day or 2 with some PT OT. MMODL / IJN: [id number] /
[2023-12-31] MEDS: oxyCODONE-APAP 10-325MG 1 EACH TAB PO SCH ×4 (00:27→12:10)
[2023-12-31] MEDS: ACETAMINOPHEN TAB 325 MG TAB PO SCH ×3 (00:28→12:09)
[2023-12-31 02:29] VITALS: RESP 18
[2023-12-31] MEDS: LACTATED RINGERS 1,000 ML IV SCH (06:07)
[2023-12-31 07:58] LABS: Glucose,Whole Blood 186 mg/dL (70-110)
[2023-12-31] MEDS: ASPIRIN 81 MG PO SCH (08:49)
[2023-12-31] MEDS: PREGABALIN 75 MG CAP PO SCH (08:49)
[2023-12-31] MEDS: SENNOSIDES-DOCUSATE SODIUM 1 EACH TAB PO SCH (08:50)
[2023-12-31 09:13] VITALS: BP 100/50; PULSE 74; TEMP 98.6
--- NOTE | 2023-12-31 09:47 | P.PN ---
Subjective Progress Note Date: 12/31/23 Principal diagnosis: 1. Cervical spondylotic myelopathy 2. Left upper extremity weakness 3. OALL 4. s/p C4-7 ACDF Patient seen and examined this morning. Patient resting comfortably in bed. Patient does report that her pain is managed on current regimen. She states she is feeling better with getting up and about with staff and PT. Surgical incision to the posterior cervical spine, Mild sangeous drainage from mid incision, continue to chnage dressing as needed to maintain incision clean and dry. Instructed to keep [place] c-collar on at all times. She may remove for showers. Continue to encourage patient to use incentive spirometer. No acute concerns. Patient is cleared from Orthopedic standpoint for discharge to [facility] when bed olegario ilable. Objective - Vital Signs Vital signs: Vital Signs Temp 98.8 F 12/31/23 02:17 Pulse 88 12/31/23 02:17 Resp 18 12/31/23 08:00 BP 100/52 12/31/23 02:17 Pulse Ox 93 L 12/31/23 02:17 FiO2 Intake & Output 12/30/23 12/31/23 12/31/23 18:59 06:59 18:59 Intake Total 890 Output Total 43 Balance -43 890 Intake: Intake, IV Titration 0 Amount Lactated Ringers 1,000 ml 0 @ 0 mls/hr IV .[facility] Rx#:[id number] Lactated Ringers 1,000 ml 0 @ 20 mls/hr IV .Q24H [facility] Rx#:[id number] Oral 890 Output: Post Void Residual 43 Other: Voiding Method Indwelling Catheter Indwelling Catheter # Voids 1 3 - Exam Physical Examination General: The patient is awake and alert, in no acute distress Skin: Skin is warm and dry with no obvious rashes or lesions. Surgical incision to the posterior cervical spine, Mild sangeous drainage from mid incision, dressing is CDI. Eye: Pupils are equal, round and reactive to light, extra-ocular movements are intact; there is normal conjunctiva bilaterally. Neck: The neck is Moderate tenderness around incision, range of motion is limited due to surgical procedure. Cardiovascular: There is a regular rate and rhythm. No murmur, rub or gallop is appreciated. Respiratory: Lungs are clear to auscultation, respirations are non-labored, breath sounds are equal. Gastrointestinal: Soft, non-distended, non-tender abdomen. Back: There is no tenderness to palpation in the midline, paralumbar, parathoracic or buttocks region. There is no obvious deformity . Musculoskeletal: ROM limited secondary to pain and stiffness from surgical procedure. Muscle strength in all major muscle groups of bilateral upper ext remities 4/5, bilateral lower extremities 4/5. Neurological: CN 2-12 intact. There are no obvious motor or sensory deficits. Movement and coordination equal and intact. Sensory exam to light touch intact C5-T1 and intact from L2-S1. Reflexes 2/4 in bilateral upper and lower extremities. Negative Hoffmans, babinski, and clonus signs. Psychiatric: Cooperative, appropriate mood & affect, normal judgment. - Labs CBC & Chem 7: 12/30/23 03:46 12/30/23 03:46 Labs: Abnormal Lab Results - Last 24 Hours (Table) 12/31/23 Range/Units 07:57 POC Glucose (mg/dL) 186 H (70-110) mg/dL Assessment and Plan Assessment: Postop day 4: C2-T2 decompression and fusion 1. Cervical spondylotic myelopathy 2. Left upper extremity weakness 3. OALL 4. s/p C4-7 ACDF Plan: -Appreciate marketing regional consultant and team management. -Activity: Ambulate QID, OOB all meals, up and about, limit lifting bending twisting to less than 5 lbs. Use walker or cane if needed for stability. -Daily PT/OT, increase ambulation strength and balance. - Hard cervical collar at all times, may remove for showers. -Pain control: Adequate at this time -Meds: reviewed -GI ppx: senna, Miralax -DC germain -DVT PPX: Heparin -Hygiene: Shower today. Maintain dressing clean and dry, change dressing as needed. -Encourage IS 10x/hr -Dispo: Patient is cleared from an Orthopedic standpoint for discharge to [facility] when bed available. *I reviewed and discussed this case with my attending Dr. Sands, whom has reviewed this chart and films and is in agreement with assessment and plan of care as outlined above. I have personally seen and examined the patient, performed the documentation and the assessment and plan as written. Number of minutes spent on the visit:20m.
--- NOTE | 2023-12-31 11:08 | P.DS ---
Providers Date of admission: 12/27/23 08:27 Expected date of discharge: 12/31/23 Attending physician: Trev Sansd DO Consults: 12/27/23 14:39 Consult Physician Routine Consulting Provider: Charlie Esqueda Reason/Comments: medical management s/p C2-T2 post cervical decompr fusion Do you want consulting provider notified?: Yes [facility] Course: Hospital Course: The patient was evaluated preoperatively and found to have the diagnosis of Cervical spondylosis with stenosis They underwent appropriate preoperative care and were willing to undergo the intended procedure. They underwent a successful C2-T2 decompression and fusion were recovered appropriately and sent to the floor. While on the floor they worked with physical therapy, occupational therapy and nursing to enhance their recovery experience. Their pain was well controlled through their stay and they were started on appropriate medications, DVT ppx modalities, activity and dietary needs. Daily labs were monitored closely, and transfusions were only used when necessary. Medicine as well as other consulting services have made their input and have helped with our team approach and multidisciplinary care. PT milestones have been met and passed and they have made the recommendation of subacute rehab for this patient and treating providers agree with this care path. The patient will be discharged home with appropriate medications, instructions and follow-up information and in stable condition. Patient Condition at Discharge: Good Plan - Discharge Summary Discharge Rx Participant: No New Discharge Prescriptions: New Sulfamethox-Tmp 800-160Mg [Bactrim DS 800-160 mg] 1 tab PO Q12HR #20 tab Cyclobenzaprine [Flexeril] 5 mg PO TID PRN #40 tablet PRN Reason: Muscle Spasm Pregabalin [Lyrica] 150 mg PO BID #60 cap oxyCODONE-APAP 10-325MG [Percocet 10-325 mg] 1 tab PO Q4HR PRN #42 tab PRN Reason: Pain Sennosides/Docusate Sodium [Senna Plus 8.6-50 mg Tablet] 1 each PO DAILY PRN #20 tablet PRN Reason: Constipation No Action Pregabalin [Lyrica] 150 mg PO BID oxyCODONE-APAP 7.5-325MG [Percocet 7.5-325 mg] 1 tab PO TID PRN PRN Reason: Pain lamoTRIgine [LaMICtal] 200 mg PO HS #30 tablet QUEtiapine [SEROquel] 50 mg PO HS PRN PRN Reason: depression Atorvastatin [Lipitor] 80 mg PO HS #90 tab Tirzepatide [Mounjaro] 5 mg SQ SA Budesonide-Formot 160-4.5 Mcg [Symbicort 160-4.5 Mcg Inhaler] 2 puff INHALATION BID QUEtiapine [SEROquel] 50 mg PO HS Aspirin 81 mg PO DAILY #90 tab Discharge Medication List Pregabalin [Lyrica] 150 mg PO BID 09/24/17 [History] oxyCODONE-APAP 7.5-325MG [Percocet 7.5-325 mg] 1 tab PO TID PRN 03/23/20 [History] lamoTRIgine [LaMICtal] 200 mg PO HS #30 tablet 04/05/20 [Rx] Budesonide-Formot 160-4.5 Mcg [Symbicort 160-4.5 Mcg Inhaler] 2 puff INHALATION BID 03/02/22 [History] QUEtiapine [SEROquel] 50 mg PO HS 03/02/22 [History] QUEtiapine [SEROquel] 50 mg PO HS PRN 12/18/22 [History] Aspirin 81 mg PO DAILY #90 tab 12/22/22 [Rx] Atorvastatin [Lipitor] 80 mg PO HS #90 tab 12/22/22 [Rx] Tirzepatide [Mounjaro] 5 mg SQ SA 12/22/23 [History] Cyclobenzaprine [Flexeril] 5 mg PO TID PRN #40 tablet 12/30/23 [Rx] Pregabalin [Lyrica] 150 mg PO BID #60 cap 12/30/23 [Rx] Sennosides/Docusate Sodium [Senna Plus 8.6-50 mg Tablet] 1 each PO DAILY PRN #20 tablet 12/30/23 [Rx] Sulfamethox-Tmp 800-160Mg [Bactrim DS 800-160 mg] 1 tab PO Q12HR #20 tab 12/30/23 [Rx] oxyCODONE-APAP 10-325MG [Percocet 10-325 mg] 1 tab PO Q4HR PRN #42 tab 12/30/23 [Rx] Follow up Appointment(s)/Referral(s): Charlie Esqueda MD [Primary Care Provider] - 1 Week Trev Sands DO [Doctor of Osteopathic Medicine] - 10 Days Activity/Diet/Wound Care/Special Instructions: Spine Discharge and Recovery Instructions Date of Surgery: 12/27/2023 Diagnosis: cervical spondylosis with stenosis Procedure: C2-T2 decompression and fusion Medications: See medication list All medication refills should be obtained through your primary care doctor or your clinic spine surgeon. Please discuss prescription refills at your follow up appointment. Do not call the hospital for medication refills. Activity: Encourage ambulation with assist of walker, Up and about 6-8x daily PT/OT daily work on balance, strength and mobility Up in chair with all meals Shower daily Brace: Use brace when up and about, do not wear in bed or shower Dressing: Leave your dressing in place for a total of 3 days post operatively. Then you may remove your dressing and leave open to air. Keep the area clean and if not able to keep area clean, then cover with sterile gauze and tape. Showering: You may shower 3 days after your procedure allowing soap and water to run over incision. Do not scrub. Do not soak. Blot dry. Follow up: Please confirm a follow up appointment with your surgeon 2 weeks post operatively. Please make an appointment to follow up with your PCP in 1-2 weeks after surgery for evaluation `3 phase, 3-week plan POST OP WEEKS 1-3 1. Lifting/carrying/pushing/pulling limited to less than 5 pounds. 2. Do not sit for longer than 15 minutes at one time. Get up and walk around. Prolonged sitting is NOT advised. If you lay down, see if you can tolerate laying down on you front (belly side) 3. Walk for periods of 15 minutes = 1 mile but no longer; do it multiple times times each day. 4. Ice your low back after activity. POST OP WEEKS 3-6 1. Lifting limited to less than 20 pounds. 2. Do not sit for longer than 30 minutes at a time. Frequently change positions. Use a sit-to stand workstation or take frequent breaks from sitting if you have returned to work. 3. Walk for 30 minutes each day. If possible, do these three or more times a day POST OP WEEKS 6+ At your 6-week appointment we will give you a physical therapy referral to focus on a core stabilization and strengthening program. You should also work on leg & buttock strengthening, hamstring & quadriceps stretching, and continue a low impact aerobic activity program such as swimming, walking, or riding a station ko bicycle. During the initial 6 weeks after your surgery, you are at the highest risk of re-injuring your spine. You should generally avoid BLTs (bending, lifting and twisting combination motions) and follow the above guidelines to reduce the chance of reinjury. You can anticipate post op appointments in our office at approximately 3 weeks and 6 weeks after your surgery. INCISION CARE: If your incision is not draining you do NOT need to cover it with a dressing. Keep your incision clean, dry and intact. In most cases, we apply skin glue, shannon or sutures to the incision at the time of surgery. This will be like a crust or have the appearance of a scab and will fall off in time on its own. The stitches or shannon need to be removed at 3 weeks post op appointment. You may begin to shower 3 days after surgery (this allows the glue to murray well). However, please avoid scrubbing the incision site or peeling off any of the skin glue. This will ensure optimal healing of your incision. Also, during this time avoid soaking the incision area in water - this includes swimming pools, hot tubs or baths. No ointments, lotions or oils on the incision until your surgeon allows. Leave shannon, sutures or glue in place. Neurological dysfunction that comes on suddenly can also be a sign of a stroke. Below some common symptoms of a stroke are listed: B - balance difficulty such as sudden onset walking or leaning to one side - NEW E - eye problem such as sudden double vision or trouble seeing on one side - NEW F - Facial weakness or numbness on one side - NEW A - Arm or leg weakness or numbness on one side - NEW S - Slurred speech or difficulty with word finding - NEW T - Time is BRAIN! Call 911 as soon as you recognize these symptoms Diet: Consume a regular diet rich in vegetables and lean protein such as chicken or fish. You should consume in a ratio of approximately 20% fats|40% carbohydr ates|40%protein. Vegetables, sweet potatoes, brown rice or quinoa are examples of good carbohydrates. Chips, white bread, cookies and sweets/sugar are examples of bad carbohydrates. Limit your bad carbs, go wild with good carbs. "Life's Simple 7" Guidelines as per [place] [employer] These will help you reclaim your life after surgery and pipefitter helper in your recovery, keeping in mind your restrictions. (1) Get Active. Physical activity can help people lose weight, control high blood pressure and cholesterol, feel emotionally better, and sleep better. (2) Control Cholesterol. Avoid a diet high in saturated fat, trans fat, & cholesterol. Limit whole milk & cream, ice cream, butter, egg yolks, processed meats (like sausage and hot dogs), and fatty meats. Choose healthy foods that are low in saturated fat, trans fat and cholesterol which include: Fruits and vegetables, fiber rich grain products (like whole grain pasta and brown rice), lean meat such as chicken, fish, nuts, seeds, and legumes. (3) Eat Better. Eat small portions. Shop at the grocery with a list and do not stray from it. Tips for a healthy diet include: Limit sodium intake to less than 1500mg daily, avoid prepackaged, processed, and fast foods, choose a diet rich in fruits, vegetables, and whole grain, high fiber foods, and limit saturated & cholesterol in your diet. (4) Manage Blood Pressure. If you have high blood pressure, you should have a cuff at home so that you can check your blood pressure regularly. Be sure you have a good cuff. An arm one is generally better than a wrist one. Bring the cuff to a doctor's appointment to validate that the measurements that your cuff are taking are accurate. Take your blood pressure twice daily when you are sitting down and relaxing. Record the numbers in a log and bring this log with you to your doctors' appointments. (5) Lose Weight if your BMI is above 25. A healthy BMI is between 19-25. To calculate Your BMI, you may use a Standard BMI Calculator on the NIH BMI website: <www.nhlbi.nih.gov/guidelines/obesity/BMI/bmicalc.htm>. Weigh oneself daily. If you are overweight, set a goal to lose weight. A pound a week loss if needed is a good target. (6) Reduce Blood Sugar. Limit foods and liquids with "added sugars." (Added sugars include sucrose, fructose, glucose, maltose, dextrose, high fructose corn syrup, corn syrup, concentrated fruit juice and honey). (7) Stop Smoking. If you smoke, quitting smoking is one of the best things that you can do for your health. Smoking increases your risk of heart attack, stroke, and peripheral vascular disease, which is a build-up of plaque in your arteries. Please discard all the cigarettes and lighters in your house. Have a plan for what you will do when you have the urge to smoke. Direct and second- hand smoke shortens your life as well as the lives of your family, friends and others around you. For your health and the health of those around you, please consider quitting! Proper Bending Body Mechanics: Maintain a wide stance with one foot slightly in front of the other. Keep your back straight. Bend utilizing the strength in your hips and knees. Do not bend at the waist. Maintain the lifted object at your waist-level close to your body. Avoid lifting weight that causes immediately pain or pain anywhere in the body afterwards. Smoking/Nicotine If there was ever one thing that you could do to increase your overall health, decrease your risk of cardiovascular problems by about 39% the second you make the choice, it is to STOP SMOKING. Your body's most instant gratification is the second you stop smoking. We have all heard the studies, read the articles but it is true, smoking is extremely bad for your overall health, and moreover it is detrimental to your bone health. Nicotine, IN ANY FORM, kills bone cells, prevents your body from healing fractures, and significantly prolongs healing after surgery. In spine surgery specifically, it increases your risk of not healing your bones to create a fusion and increases your risk of having a revision surgery due to this up to 60%. I know it is hard. I know it feels impossible. But there are ways. Take control of your life. We are here to help you through it. And when you are ready, ask us and we can direct you to help if you desire. Use the START Plan to Quit Smoking (please visit the Helpguide.org website listed below for more information): S = Set a quit date. Choose a date within the next 2 weeks, so you have enough time to prepare without losing your motivation to quit. If you mainly smoke at work, quit on the weekend, so you have a few days to adjust to the change. T = Tell family, friends, and co-workers that you plan to quit. Let your friends and family in on your plan to quit smoking and tell them you need their support and encouragement to stop. Look for a quit brigette who wants to stop smoking as well. You can help each other get through the rough times. A = Anticipate and plan for the challenges you'll face while quitting. Most people who begin smoking again do so within the first 3 months. You can help yourself make it through by preparing ahead for common challenges, such as nicotine withdrawal and cigarette cravings. R = Remove cigarettes and other tobacco products from your home, car, and work. Throw away all your cigarettes (no emergency pack!), lighters, ashtrays, and matches. Wash your clothes and freshen up anything that smells like smoke. Shampoo your car, clean your drapes and carpet, and steam your furniture. T = Talk to your doctor about getting help to quit. Your doctor can prescribe medication to help with withdrawal and suggest other alternatives. If you can't see a doctor, you can get many products over the counter at your local pharmacy or grocery store, including the nicotine patch, nicotine lozenges, and nicotine gum. Resources for Quitting Smoking: <https://www.[place].gov/documents/[facility]/Quit_Tobacco_Resources_for_patients_313 480_7.pdf> Supplementation: Take recommended dosages of Vitamin D and Calcium to help fortify your bones and help them to heal. See your health maintenance packet for dosages and recommended levels. DVT/VTE prophylaxis: You will be given compression stockings from the hospital. Wear these daily for the first two weeks after surgery. You may take them off at night. You may be prescribed a medication to help thin your blood. Take this as directed. If you are not prescribed this medication, early and frequent ambulation has been shown to be the best prophylaxis to deep vein thrombosis and sequelae related to this event. Discharge Disposition: TRANSFER TO SNF/ECF
[2023-12-31 11:09] LABS: Basophils # (A) 0.03 X 10*3/uL (0.00-0.10); Basophils % (A) 0.4 %; Eosinophils # (A) 0.36 X 10*3/uL (0.04-0.35); Eosinophils % (A) 4.3 %; HCT 33.3 % (37.2-46.3); HGB 10.5 g/dL (12.0-15.0); Lymphocytes # (A) 1.73 X 10*3/uL (0.90-5.00); Lymphocytes % (A) 20.6 %; MCH 27.5 pg (27.0-32.0); MCHC 31.5 g/dL (32.0-37.0); MCV 87.2 FL (80.0-97.0); Mean Platelet Volume 10.8 FL (9.5-12.2); Monocytes # (A) 0.79 X 10*3/uL (0.20-1.00); Monocytes % (A) 9.4 %; NRBC Per 100 WBC 0 X 10*3/uL (0.00-0.01); Neutrophils # (A) 5.46 X 10*3/uL (1.80-7.70); Neutrophils % (A) 64.8 %; Platelet Count 236 X 10*3/uL (140-440); RBC 3.82 X 10*6/uL (4.10-5.20); RDW 14.2 % (11.5-14.5); WBC 8.41 X 10*3/uL (4.50-10.00)
[2023-12-31] MEDS: IPRATROPIUM-ALBUTEROL 3 ML NEB INHALATION SCH ×2 (11:22→15:29)
[2023-12-31 12:23] LABS: Glucose,Whole Blood 192 mg/dL (70-110)
[2023-12-31] MEDS ORDERED: INSULIN ASPART (NovoLOG) 100 UNIT/ML VIAL SQ SCH (12:30)
[2023-12-31] MEDS ORDERED: DEXTROSE 50% SYRINGE 50 ML IVP PRN ×2 (12:30)
[2023-12-31 12:31] LABS: ALT 21 U/L (8-44); AST 30 U/L (13-35); Albumin 3.2 g/dL (3.8-4.9); Albumin/Globulin Ratio 1.45 Ratio (1.60-3.17); Alkaline Phosphatase 61 U/L (41-126); BUN/Creat Ratio 23.29 Ratio (12.00-20.00); Blood Urea Nitrogen 16.3 mg/dL (9.0-27.0); Calcium 8.7 mg/dL (8.7-10.3); Carbon Dioxide 30.2 mmol/L (21.6-31.8); Chloride 97 mmol/L (96-109); Globulin 2.2 g/dL (1.6-3.3); Glucose 169 mg/dL (70-110); Potassium 3.6 mmol/L (3.5-5.5); Sodium 138 mmol/L (135-145); Total Bilirubin 0.4 mg/dL (0.3-1.2); Total Protein 5.4 g/dL (6.2-8.2)
--- NOTE | 2023-12-31 22:07 | PN ---
PROGRESS NOTE SUBJECTIVE: This is a 68-year-old white female, did med record for discharge summary. She is status post cervical surgery. 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 IMPRESSION: COPD, nicotine addiction, and hypertension. Continues on medicines, 1. Lamictal 20 mg daily. 2. Seroquel 50 mg at night. 3. Symbicort 160/4.5 two puffs b.i.d. 4. 5 mg subcu weekly. 5. Percocet 10/325 every 4-6 after cervical surgery. 6. Senna p.r.n. 7. Bactrim Double Strength for 6 days b.i.d. 8. DuoNeb q.i.d. 9. Flexeril 5 mg p.r.n. for anxiety. 10.Lyrica 150 b.i.d. Follow up outpatient with Dr. Esqueda in a week or 2. Lungs are clear, cardiovascular S1, S2. Please see further orders. MMODL / IJN: [id number] /
== END 2023-12-31 16:00 | DRG 460 ==
LOC: 2ORMAIN 08:27 → 5NMEDONC 16:58
PROVIDERS: ADMIT Orthopaedic Surgery; ATTEND Orthopaedic Surgery
PROC: 0RG6071 Fusion of Thoracic Vertebral Joint with Autologous Tissue Substitute, Posterior Approach, Posterior Column, Open Approach (ICD-10-PCS; principal; 2023-12-28)
PROC: 0RG2071 Fusion of 2 or more Cervical Vertebral Joints with Autologous Tissue Substitute, Posterior Approach, Posterior Column, Open Approach (ICD-10-PCS; 2023-12-28)
PROC: 0RG4071 Fusion of Cervicothoracic Vertebral Joint with Autologous Tissue Substitute, Posterior Approach, Posterior Column, Open Approach (ICD-10-PCS; 2023-12-28)
PROC: 00NW0ZZ Release Cervical Spinal Cord, Open Approach (ICD-10-PCS; 2023-12-28)
PROC: 00NX0ZZ Release Thoracic Spinal Cord, Open Approach (ICD-10-PCS; 2023-12-28)
DX: M47.12 Other spondylosis with myelopathy, cervical region (principal); E11.42 Type 2 diabetes mellitus with diabetic polyneuropathy; J43.9 Emphysema, unspecified; F32.9 Major depressive disorder, single episode, unspecified; I10 Essential (primary) hypertension; G47.9 Sleep disorder, unspecified; I25.10 Atherosclerotic heart disease of native coronary artery without angina pectoris; E78.5 Hyperlipidemia, unspecified; M48.02 Spinal stenosis, cervical region; I44.4 Left anterior fascicular block; F41.9 Anxiety disorder, unspecified; F17.210 Nicotine dependence, cigarettes, uncomplicated; Z91.81 History of falling; Z87.19 Personal history of other diseases of the digestive system; Z95.5 Presence of coronary angioplasty implant and graft; Z79.51 Long term (current) use of inhaled steroids; Z79.82 Long term (current) use of aspirin; Z79.899 Other long term (current) drug therapy; Z79.85 Long-term (current) use of injectable non-insulin antidiabetic drugs; Z88.0 Allergy status to penicillin; Z88.8 Allergy status to other drugs, medicaments and biological substances; Z88.5 Allergy status to narcotic agent
CPT/HCPCS: 71045; 72040; 72125; 72128; 80048; 80053; 85025; 85610; 85730; 94640; 94760